=== PATIENT | male | born 1965 | race Caucasian/White ===

== ENCOUNTER 2016-04-23 20:11 | Emergency (ER) | payer OTHER, SELFPAY ==
[2016-04-23 20:35] VITALS: PULSE 70; O2SAT 96
[2016-04-23] MEDS ORDERED: DILAUDID 1 MG/ML INJECTION IM ONE (21:05)
[2016-04-23] MEDS ORDERED: Phenergan 25 MG INJ IM ONE (21:05)
--- NOTE | 2016-04-23 21:12 | ERPHSYRPT ---
- History of Present Illness Time Seen by Provider: 04/23/16 20:58 Source: patient Exam Limitations: no limitations Patient Subjective Stated Complaint: didnt go to work because of bad lower back pain x 4-5 days - pain radiates to the legs Triage Nursing Assessment: ambulatory to treatment area - slow, intentional gait - moves all extremities with rigidity. alert/oriented - unpleasant affect. skin flushed/dry - no rash/injury. resps shallow per pain - non- labored Physician History: FOR THE PAST 4 DAYS PT HAS HAD PROGRESSIVELY WORSENING LOW BACK PAIN RADIATING AT TIMES DOWN TO BOTH FEET; DENIES RECENT INJURY BUT STATES HE BENDS OVER AT WORK AND LIFTS OCCASIONALLY. PT DENIES CHEST PAIN, SHORTNESS OF AIR, FEVER, DYSURIA, ABDOMINAL PAIN. Allergies/Adverse Reactions: No Known Drug Allergies Allergy (Unverified 04/23/16 20:34) Home Medications: Carvedilol 12.5 mg [Coreg 12.5 mg] 25 mg PO DAILY 12/27/14 [History] Fluoxetine HCl 10 mg [Prozac 10 mg] 10 mg PO HS 12/27/14 [History] Hydrochlorothiazide 12.5 mg PO DAILY 12/27/14 [History] Hydrocodone/APAP 10/325 mg [[place] 10/325 MG Tablet] 1 tab PO TID 12/27/14 [History] Lisinopril [Zestril] 30 mg PO DAILY 12/27/14 [History] Diclofenac Sodium 50 mg [Voltaren 50 mg] 50 mg PO DAILY 04/23/16 [History] Hx Tetanus, Diphtheria Vaccination/Date Given: No Hx Influenza Vaccination/Date Given: No Hx Pneumococcal Vaccination/Date Given: No Immunizations Up to Date: Yes - Review of Systems Respiratory: No Dyspnea Cardiac: No Chest Pain Abdominal/Gastrointestinal: No Abdominal Pain Genitourinary Symptoms: No Dysuria Musculoskeletal: Back Pain (BILATERAL LOW BACK PAIN SOMETIMES WITH RADIATION TO FEET) All Other Systems: Reviewed and Negative - Past Medical History Pertinent Past Medical History: Yes Neurological History: No Pertinent History ENT History: No Pertinent History Cardiac History: Hypertension Respiratory History: No Pertinent History Musculoskeletal History: No Pertinent History GI Medical History: Gallbladder Disease Psycho-Social History: No Pertinent History Other Medical History: RESTLESS LEG - Past Surgical History Past Surgical History: Yes Neuro Surgical History: No Pertinent History Cardiac: No Pertinent History Respiratory: No Pertinent History Gastrointestinal: Cholecystectomy Genitourinary: No Pertinent History Male Surgical History: No Pertinent History Other Surgical History: lymph node removed 25 yrs ago - Social History Smoking Status: Current every day smoker How long have you smoked: 30 yrs Exposure to second hand smoke: No Drug Use: none Patient Lives Alone: No - Nursing Vital Signs Temperature: 98.1 F Temperature Source: Oral Pulse Rate: 70 Respiratory Rate: 16 Pain Intensity: 10 - Physical Exam General Appearance: alert Eye Exam: PERRL/EOMI, eyes nml inspection Ears, Nose, Throat Exam: TMs normal, pharynx normal, moist mucous membranes Neck Exam: normal inspection, non-tender Respiratory Exam: lungs clear Cardiovascular Exam: normal heart sounds Gastrointestinal Exam: soft, normal bowel sounds Back Exam: normal range of motion, other (MILD LUMBAR PARAVERTEBRAL TENDERNESS) , No vertebral tenderness Extremity Exam: normal inspection, normal range of motion, No pedal edema Peripheral Pulses: dorsalis-pedis (R): 3+, dorsalis-pedis (L): 3+ Neurologic Exam: alert, cooperative, sensation nml, No motor deficits Skin Exam: warm, dry SpO2 Interpretation: normal SpO2: 96 Oxygen Delivery: Room Air - Course Nursing assessment & vital signs reviewed: Yes - Departure Time of Disposition: 21:13 Departure Disposition: Home Clinical Impression: LOW BACK STRAIN Condition: Fair Critical Care Time: No Instructions: Low Back Pain Additional Instructions: FOLLOW UP WITH PRIVATE DOCTOR TOMORROW. DO NOT LIFT, BEND OR TWIST TORSO. Prescriptions: Naproxen [Naprosyn] 500 mg PO Q12H PRN PRN #20 tablet PRN Reason: Pain Cyclobenzaprine HCl [Flexeril] 10 mg PO TID #20 tablet
[2016-04-23] MEDS ORDERED: Phenergan 25 MG INJ ONE (21:14)
[2016-04-23] MEDS ORDERED: DILAUDID 1 MG/ML INJECTION ONE (21:14)
[2016-04-23 22:08] VITALS: BP 163/96
== END 2016-04-23 22:08 | disposition home or self-care (01) ==
LOC: ED 20:11
DX: S39.012A Strain of muscle, fascia and tendon of lower back, initial encounter (principal); M54.5 Low back pain; Z79.891 Long term (current) use of opiate analgesic
CPT/HCPCS: 96372; 99283; J1170; J2550

== ENCOUNTER 2016-12-24 05:39 | Emergency (ER) | payer SELFPAY ==
--- NOTE | 2016-12-24 06:10 | ERPHSYRPT ---
- History of Present Illness Source: patient, family () Exam Limitations: no limitations Patient Subjective Stated Complaint: pt states he has been vomiting blood for 2 weeks and having lt sided abd pain. Triage Nursing Assessment: pt alert and oreinted. answers questions approp. pt ambulatory with steady gait noted. respirations nonlaboroed with lungs cta. skin patel, wrm anddry abd tender to light palpation with hypo bowel sounds noted in all 4 quads. Hx Tetanus, Diphtheria Vaccination/Date Given: No Hx Influenza Vaccination/Date Given: No Hx Pneumococcal Vaccination/Date Given: No Immunizations Up to Date: No <MIGUELINA PARISI - Last Filed: 12/24/16 07:09> <MIGUELINA RAMON - Last Filed: 12/24/16 10:09> - History of Present Illness Time Seen by Provider: 12/24/16 05:55 Physician History: FOR THE PAST 3 WEEKS PT HAS HAD LEFT FLANK/ABDOMINAL/RIB PAIN; FOR THE PAST 2 WEEKS VOMITING BRIGHT RED BLOOD 1-3 TIMES EACH DAY; WITHIN THE PAST 1.5 WEEKS BRIGHT RED BLOOD IN THE STOOL X2. PT ALSO C/O A CHRONIC COUGH FOR YEARS WHICH WORSENED YESTERDAY AND DIAPHORESIS FOR THE PAST 2 YEARS. PT HAS ALSO LOST ABOUT 30# IN THE PAST 3 MONTHS. RECENT TRAUMA, ACCIDENT, FEVER, RASH ALL DENIED. ( MIGUELINA PARISI) Allergies/Adverse Reactions: No Known Drug Allergies Allergy (Verified 12/24/16 05:52) Home Medications: Carvedilol 12.5 mg [Coreg 12.5 mg] 25 mg PO DAILY 12/27/14 [History] Fluoxetine HCl 10 mg [Prozac 10 mg] 10 mg PO HS 12/27/14 [History] Hydrochlorothiazide 12.5 mg PO DAILY 12/27/14 [History] Hydrocodone/APAP 10/325 mg [[place] 10/325 MG Tablet] 1 tab PO TID 12/27/14 [History] Lisinopril [Zestril] 30 mg PO DAILY 12/27/14 [History] Diclofenac Sodium 50 mg [Voltaren 50 mg] 75 mg PO DAILY 04/23/16 [History] - Review of Systems Constitutional: Weight Loss, No Fever Respiratory: Cough Cardiac: Other (LEFT LOWER RIB PAIN) Abdominal/Gastrointestinal: Abdominal Pain, Hematemesis, Hematochezia Endocrine: Excessive Sweating All Other Systems: Reviewed and Negative <MIGUELINA PARISI - Last Filed: 12/24/16 07:09> - Past Medical History Pertinent Past Medical History: Yes Neurological History: No Pertinent History ENT History: No Pertinent History Cardiac History: Hypertension Respiratory History: No Pertinent History Musculoskeletal History: No Pertinent History GI Medical History: Gallbladder Disease Psycho-Social History: No Pertinent History Other Medical History: RESTLESS LEG - Past Surgical History Past Surgical History: Yes Neuro Surgical History: No Pertinent History Cardiac: No Pertinent History Respiratory: No Pertinent History Gastrointestinal: Cholecystectomy Genitourinary: No Pertinent History Male Surgical History: No Pertinent History Other Surgical History: lymph node removed 25 yrs ago - Social History Smoking Status: Current every day smoker How long have you smoked: 30 yrs Exposure to second hand smoke: Yes Drug Use: none Patient Lives Alone: No <MIGUELINA PARISI - Last Filed: 12/24/16 07:09> - Physical Exam General Appearance: alert Eye Exam: PERRL/EOMI Ears, Nose, Throat Exam: pharynx normal Neck Exam: normal inspection Respiratory Exam: lungs clear Cardiovascular Exam: normal heart sounds Gastrointestinal/Abdomen Exam: soft, tenderness (MODERATE LUQ ABDOMINAL TENDERNESS), other (B.S. MILDLY HYPERACTIVE AND NORMOTONIC) Rectal Exam: normal rectal tone, No blood Back Exam: normal range of motion Extremity Exam: normal inspection, No pedal edema Neurologic Exam: alert, cooperative Skin Exam: warm, dry SpO2 Interpretation: normal SpO2: 96 Oxygen Delivery: Room Air <MIGUELINA PARISI - Last Filed: 12/24/16 07:09> <MIGUELINA RAMON - Last Filed: 12/24/16 10:09> - Nursing Vital Signs Nursing Vital Signs: Initial Vital Signs Temperature 98.1 F 12/24/16 05:44 Pulse Rate 70 12/24/16 05:44 Respiratory Rate 18 12/24/16 05:44 Blood Pressure 124/61 12/24/16 05:44 O2 Sat by Pulse Oximetry 96 12/24/16 05:44 Pain Scale Pain Intensity 10 - Course Nursing assessment & vital signs reviewed: Yes <MIGUELINA PARISI - Last Filed: 12/24/16 07:09> - CT Exams Chest CT Interpretation: Negative (Per Dr Mora.) Abdomen/Pelvis CT Interpretation: Normal Appendix, Other (colonic diverticulosis without diverticulitis. No acute intra-abdominal/pelvic abnormalities per Dr Mora.) <MIGUELINA RAMON - Last Filed: 12/24/16 10:09> Ordered Tests: Active Orders 24 hr Category Date Time Status IV Insertion STAT Care 12/24/16 06:07 Active ABDOMEN AND PELVIS W CONTRAST [CT] Stat Exams 12/24/16 06:06 Completed CHEST WITH CONTRAST [CT] Stat Exams 12/24/16 06:06 Completed AMYLASE Stat Lab 12/24/16 06:07 Completed CBC W DIFF Stat Lab 12/24/16 06:07 Completed CMP Stat Lab 12/24/16 06:07 Completed LIPASE Stat Lab 12/24/16 06:07 Completed MAGNESIUM Stat Lab 12/24/16 06:07 Completed Occult Blood,Stool Other Stat Lab 12/24/16 06:50 Completed PROTIME WITH INR Stat Lab 12/24/16 06:00 Completed PTT Stat Lab 12/24/16 06:00 Completed UA W/ MICROSCOPIC Stat Lab 12/24/16 06:08 Completed Medication Summary Generic Name Dose Route Start Last Admin Trade Name Freq PRN Reason Stop Dose Admin Sodium Chloride 1,000 mls @ 350 mls/hr 12/24/16 06:15 12/24/16 06:13 Sodium Chloride 0.9% 1000 Ml IV 01/23/17 06:14 350 mls/hr .[id number] MATI Administration Discontinued Medications Generic Name Dose Route Start Last Admin Trade Name Freq PRN Reason Stop Dose Admin Morphine Sulfate 4 mg 12/24/16 07:56 12/24/16 08:00 Morphine Sulfate 4 Mg Inj IV 12/24/16 07:57 4 mg STAT ONE Administration Morphine Sulfate Confirm 12/24/16 07:58 Morphine Sulfate 4 Mg Inj Administered 12/24/16 07:59 Dose 4 mg .ROUTE .STK-MED ONE Ondansetron HCl 4 mg 12/24/16 07:56 12/24/16 08:00 Zofran 4 Mg/2 Ml Vial IV 12/24/16 07:57 4 mg STAT ONE Administration Ondansetron HCl Confirm 12/24/16 07:58 Zofran 4 Mg/2 Ml Vial Administered 09/25/17 07:59 Dose 4 mg .ROUTE .STK-MED ONE Lab/Rad Data: Laboratory Result Diagrams 12/24/16 06:07 12/24/16 06:07 Laboratory Results 12/24/16 12/24/16 12/24/16 Range/Units 06:50 06:08 06:07 WBC (4.0-10.5) K/mm3 RBC (4.1-5.6) M/mm3 Hgb (12.5-18.0) gm/dl Hct (42-50) % MCV (78-100) fl MCH (26-32) pg MCHC (32-36) g/dl RDW (11.5-14.0) % Plt Count (150-450) K/mm3 MPV (6-9.5) fl Gran % (36.0-66.0) % Lymphocytes % (24.0-44.0) % Monocytes % (0.0-12.0) % Eosinophils % (0.00-5.0) % Basophils % (0.0-0.4) % Basophils # (0-0.4) INR (0.8-3.0) APTT (24.1-36.1) SECONDS Sodium 141 (136-145) mEq/L Potassium 4.8 (3.5-5.1) mEq/L Chloride 106 (98-107) mEq/L Carbon Dioxide 24.8 (21-32) mEq/L Anion Gap 14.7 (5-15) MEQ/L BUN 33 H (9-20) mg/dL Creatinine 1.48 H (0.55-1.30) mg/dl Estimated GFR 54 ML/MIN Glucose 119 H (70-110) MG/DL Calcium 9.1 (8.5-10.1) mg/dL Magnesium 2.2 (1.8-2.4) mg/dL Total Bilirubin 0.30 (0.2-1.0) mg/dL AST 20 (15-37) U/L ALT 26 (12-78) U/L Alkaline Phosphatase 94 (46-116) U/L Serum Total Protein 7.4 (6.4-8.2) gm/dL Albumin 3.8 (3.4-5.0) g/dL Amylase 89 (25-115) U/L Lipase 282 (73-393) U/L Ur Collection Type CLEAN CATCH Urine Color YELLOW (YELLOW) Urine Appearance CLEAR (CLEAR) Urine pH 5.0 (5-6) Ur Specific [place] 1.015 (1.005-1.025) Urine Protein NEGATIVE (Negative) Urine Ketones NEGATIVE (NEGATIVE) Urine Blood 250 (0-5) Navjot/ul Urine Nitrite NEGATIVE (NEGATIVE) Urine Bilirubin NEGATIVE (NEGATIVE) Urine Urobilinogen NORMAL (0-1) mg/dL Ur Leukocyte Esterase NEGATIVE (NEGATIVE) Urine Microscopic RBC 2-5 (0-2) /HPF Ur Epithelial Cells RARE (FEW) /HPF Urine Bacteria RARE (NEGATIVE) /HPF Urine Mucus SLIGHT (NEGATIVE) /HPF Urine Glucose NEGATIVE (NEGATIVE) mg/dL Stool Occult Blood NEGATIVE (Negative) Specimen Received 12/24 0712/24/16 12/24/16 Range/Units 06:07 06:00 WBC 11.7 H (4.0-10.5) K/mm3 RBC 4.46 (4.1-5.6) M/mm3 Hgb 14.1 (12.5-18.0) gm/dl Hct 42.6 (42-50) % MCV 95.5 (78-100) fl MCH 31.6 (26-32) pg MCHC 33.1 (32-36) g/dl RDW 13.3 (11.5-14.0) % Plt Count 218 (150-450) K/mm3 MPV 11.1 H (6-9.5) fl Gran % 58.6 (36.0-66.0) % Lymphocytes % 31.9 (24.0-44.0) % Monocytes % 6.7 (0.0-12.0) % Eosinophils % 2.5 (0.00-5.0) % Basophils % 0.3 (0.0-0.4) % Basophils # 0.04 (0-0.4) INR 0.97 (0.8-3.0) APTT 30.8 (24.1-36.1) SECONDS Sodium (136-145) mEq/L Potassium (3.5-5.1) mEq/L Chloride (98-107) mEq/L Carbon Dioxide (21-32) mEq/L Anion Gap (5-15) MEQ/L BUN (9-20) mg/dL Creatinine (0.55-1.30) mg/dl Estimated GFR ML/MIN Glucose (70-110) MG/DL Calcium (8.5-10.1) mg/dL Magnesium (1.8-2.4) mg/dL Total Bilirubin (0.2-1.0) mg/dL AST (15-37) U/L ALT (12-78) U/L Alkaline Phosphatase (46-116) U/L Serum Total Protein (6.4-8.2) gm/dL Albumin (3.4-5.0) g/dL Amylase (25-115) U/L Lipase (73-393) U/L Ur Collection Type Urine Color (YELLOW) Urine Appearance (CLEAR) Urine pH (5-6) Ur Specific [place] (1.005-1.025) Urine Protein (Negative) Urine Ketones (NEGATIVE) Urine Blood (0-5) Navjot/ul Urine Nitrite (NEGATIVE) Urine Bilirubin (NEGATIVE) Urine Urobilinogen (0-1) mg/dL Ur Leukocyte Esterase (NEGATIVE) Urine Microscopic RBC (0-2) /HPF Ur Epithelial Cells (FEW) /HPF Urine Bacteria (NEGATIVE) /HPF Urine Mucus (NEGATIVE) /HPF Urine Glucose (NEGATIVE) mg/dL Stool Occult Blood (Negative) Specimen Received <MIGUELINA PARISI - Last Filed: 12/24/16 07:09> - Progress Progress: improved Counseled pt/family regarding: lab results, diagnosis, need for follow-up, rad results <MIGUELINA RAMON - Last Filed: 12/24/16 10:09> - Progress Progress Note: 12/24/16 09:39 Pt care discussed and pt care accepted from Dr Parisi at 07:00. (MIGUELINA RAMON) <MIGUELINA PARISI - Last Filed: 12/24/16 07:09> - Departure Time of Disposition: 09:52 Departure Disposition: Home Critical Care Time: No <MIGUELINA RAMON - Last Filed: 12/24/16 10:09> - Departure Clinical Impression: Chronic abdominal pain, Vomiting Condition: Stable Referrals: PIYUSH PLAZA MD [Primary Care Provider] - Additional Instructions: You have chronic abdominal pain and vomiting. You were given morphine 4 mg, Zofran 4 mg, and fluids by IV in the ER. Take Zofran 4 mg ODT every 6 hours as needed. Follow-up with your local primary care physician within one week. Prescriptions: Ondansetron ODT 4 MG [Zofran Odt 4 mg] 1 tab PO Q6H PRN PRN #10 tab.rapdis PRN Reason: Nausea/Vomiting
[2016-12-24] MEDS ORDERED: Sodium Chloride 0.9% 1000 ML 1,000 ML ONE (06:12)
[2016-12-24] MEDS ORDERED: Sodium Chloride 0.9% 1000 ML 1,000 ML IV SCH (06:15)
[2016-12-24 06:18] LABS: BASOPHIL % 0.3 % (0.0-0.4); Eosinophil % 2.5 % (0.00-5.0); Granulocytes % 58.6 % (36.0-66.0); Lymphocytes % 31.9 % (24.0-44.0); Mean Cell Volume 95.5 fl (78-100); Mean Corpuscular Hemoglobin 31.6 pg (26-32); Mean Platelet Volume 11.1 fl (6-9.5); Monocytes % 6.7 % (0.0-12.0); Platelet Count 218 K/mm3 (150-450); Red Blood Count 4.46 M/mm3 (4.1-5.6); Red Cell Distribution Width 13.3 % (11.5-14.0); White Blood Count 11.7 K/mm3 (4.0-10.5)
[2016-12-24 06:38] LABS: ALBUMIN 3.8 g/dL (3.4-5.0); ANION GAP 14.7 MEQ/L (5-15); BILIRUBIN,TOTAL 0.3 mg/dL (0.2-1.0); Carbon Dioxide 24.8 mEq/L (21-32); MAGNESIUM 2.2 mg/dL (1.8-2.4); Potassium 4.8 mEq/L (3.5-5.1); Total Protein 7.4 gm/dL (6.4-8.2)
[2016-12-24 06:38] LABS: INR 0.97 (0.8-3.0); PROTIME 10.8 SECONDS (8.83-12.87)
[2016-12-24 06:41] LABS: PTT 30.8 SECONDS (24.1-36.1)
[2016-12-24 07:04] LABS: Bilirubin NEGATIVE (NEGATIVE); Blood 250 Ery/ul (0-5); COMPLETE URINE MICROSCOPIC? YES; Collection Type CLEAN CATCH; Glucose NEGATIVE (NEGATIVE); Leukocyte Esterase NEGATIVE (NEGATIVE)
[2016-12-24 07:07] LABS: Bacteria RARE /HPF (NEGATIVE); Epithelial Cells RARE /HPF (FEW); Mucus SLIGHT /HPF (NEGATIVE)
[2016-12-24 07:08] LABS: ADD URINE CULTURE? NO (NO)
[2016-12-24] MEDS ORDERED: MORPHINE SULFATE 4 MG INJ IV ONE (07:56)
[2016-12-24] MEDS ORDERED: Zofran 4 MG/2 ML VIAL IV ONE (07:56)
[2016-12-24] MEDS ORDERED: MORPHINE SULFATE 4 MG INJ ONE (07:58)
[2016-12-24] MEDS ORDERED: Zofran 4 MG/2 ML VIAL ONE (07:58)
[2016-12-24 08:05] VITALS: O2SAT 97
--- NOTE | 2016-12-24 08:40 | XRAY ---
Indication: Left flank pain. Vomiting blood. Multiple contiguous axial images obtained through the chest using 80 cc Isovue 370 contrast. Comparison: None Lungs are fully inflated and clear. Incidental tiny right lower lobe calcified granuloma. Heart is not enlarged. Aorta normal in course and caliber. No pathologic mediastinal/hilar lymphadenopathy. Bony thorax intact with minimal degenerative changes throughout the spine. CT abdomen reported separately. Impression: Negative CT chest with contrast exam. CT DI 23.69
--- NOTE | 2016-12-24 08:41 | XRAY ---
Indication: Left flank pain. Vomiting. Multiple contiguous axial images obtained through the abdomen and pelvis using 80 cc Isovue 370 contrast only. Comparison: CT renal stone study December 13, 2010. CT chest reported separately. Noncontrasted stomach and bowel loops appear nonobstructed. Normal appendix. Minimal descending/sigmoid colonic diverticulosis without diverticulitis. No free fluid/air. Diffuse fatty liver and previous cholecystectomy. Remaining liver, pancreas, spleen, adrenal glands, kidneys, ureters, and bladder appear unremarkable. There remains mild aortoiliac calcifications. No AAA or pathologic retroperitoneal lymphadenopathy. Osseous structures intact again with mild degenerative changes throughout the spine. Impression: 1. Colonic diverticulosis without diverticulitis. 2. Fatty liver. 3. No acute intra-abdominal/pelvic abnormalities. CT DI 23.69
[2016-12-24 10:18] VITALS: BP 105/67; PULSE 61
== END 2016-12-24 10:23 | disposition home or self-care (01) ==
LOC: ED 05:39
DX: R10.9 Unspecified abdominal pain (principal); G89.29 Other chronic pain; R11.10 Vomiting, unspecified; Z79.891 Long term (current) use of opiate analgesic; Z79.899 Other long term (current) drug therapy; K92.1 Melena; K92.0 Hematemesis
CPT/HCPCS: 36000; 36415; 71260; 74177; 80053; 81000; 82150; 82272; 83690; 83735; 85025; 85610; 85730; 96360; 96374; 96375; 99284; J2270; J2405

== ENCOUNTER 2018-04-01 18:12 | Observation (INO) | payer MEDICAID ==
[2018-04-01] MEDS ORDERED: MORPHINE SULFATE 2 MG INJ IV ONE (18:18)
[2018-04-01] MEDS ORDERED: BABY ASPIRIN 81 MG CHEW PO ONE (18:18)
[2018-04-01] MEDS ORDERED: Nitrostat 0.4 MG (ED) SL ONE (18:18)
[2018-04-01] MEDS ORDERED: LOPRESSOR 5 MG/5 ML INJECTION IV ONE ×2 (18:20→18:28)
[2018-04-01 18:26] LABS: BASOPHIL % 0.4 % (0.0-0.4); Basophil (Absolute #) 0.06 (0-0.4); Eosinophil % 1.7 % (0.00-5.0); Eosinophil (Absolute #) 0.24 (0-0.5); Granulocyte Absolute (ANC) 8.81 (1.4-6.9); Granulocytes % 60.6 % (36.0-66.0); Hematocrit 47.1 % (42-50); Hemoglobin 15.8 gm/dl (12.5-18.0); Lymphocyte (Absolute #) 4.22 (1.0-4.6); Mean Cell Volume 93.1 fl (78-100); Mean Corpuscular Hemoglobin 31.2 pg (26-32); Mean Corpuscular Hgb Concent. 33.5 g/dl (32-36); Mean Platelet Volume 10.8 fl (6-9.5); Monocytes % 8.3 % (0.0-12.0); Platelet Count 248 K/mm3 (150-450); Red Blood Count 5.06 M/mm3 (4.1-5.6); Red Cell Distribution Width 13.8 % (11.5-14.0); White Blood Count 14.5 K/mm3 (4.0-10.5)
[2018-04-01] MEDS ORDERED: MORPHINE SULFATE 2 MG INJ ONE (18:28)
[2018-04-01] MEDS: Sodium Chloride 0.9% 1000 ML 1,000 ML IV SCH (18:31)
[2018-04-01 18:40] LABS: PTT 26.5 SECONDS (24.1-36.1)
[2018-04-01 18:51] LABS: ALBUMIN 4.7 g/dL (3.5-5.0); ALKALINE PHOSPHATASE 93 U/L (38-126); ANION GAP 15.1 MEQ/L (5-15); BLOOD UREA NITROGEN 22 mg/dL (9-20); CHLORIDE 103 mmol/L (98-107); CK-Creatinine Phosphokinase 42 U/L (55-170); Carbon Dioxide 26 mmol/L (22-30); Creatinine 1 1.27 mg/dL (0.66-1.25); Glucose 159 mg/dL (74-106); NT PRO BNP 33.6 pg/mL (0-900); Potassium 4.5 mmol/L (3.5-5.1); SGOT/AST 22 U/L (17-59); SGPT/ALT 23 U/L (0-50); SODIUM 140 mmol/L (137-145); Total Protein 8.3 g/dL (6.3-8.2)
--- NOTE | 2018-04-01 20:14 | ERPHSYRPT ---
- History of Present Illness Historian: patient Exam Limitations: no limitations Patient Subjective Stated Complaint: CP starting approx 1 hour [employer] was sitting in the reclinwer when it started. pain increased with every breath. Triage Nursing Assessment: arrived in distress with CP 10/10 with pain going to left chest and into left arm. goes into back.. sierra with breathing. very anxious. Physician History: Pt is a 52 y/o male with a h/o CT in the past. He presented today to the ER, with complains of severe 10/10 chest pain that started while the pt was at rest. The pt states, the pain is mid sternal, radiates to his back and L arm. The pain was reproducible. Timing/Duration: today Activities at Onset: rest Quality: aching, pressure, tightness Location: substernal Chest Pain Radiation: arm, back Severity of Pain-Max: severe Severity of Pain-Current: none Modifying Factors: Improves With: nitroglycerin, rest, aspirin Associated Symptoms: denies symptoms Prior Chest Pain/Cardiac Workup: heart attack Nitro Today/Relief: 0.4 mg x 2, provided by ED Aspirin Treatment Today: 81 mg x 2, provided by ED Allergies/Adverse Reactions: No Known Drug Allergies Allergy (Verified 04/01/18 18:22) Home Medications: Carvedilol 12.5 mg [Coreg 12.5 mg] 25 mg PO DAILY 12/27/14 [History] Fluoxetine HCl 10 mg [Prozac 10 mg] 10 mg PO HS 12/27/14 [History] Hydrochlorothiazide 12.5 mg PO DAILY 12/27/14 [History] Hydrocodone/APAP 10/325 mg [[place] 10/325 MG Tablet] 1 tab PO TID 12/27/14 [History] Lisinopril [Zestril] 30 mg PO DAILY 12/27/14 [History] Hx Tetanus, Diphtheria Vaccination/Date Given: No Hx Influenza Vaccination/Date Given: No Hx Pneumococcal Vaccination/Date Given: No - Review of Systems Constitutional: No Fever, No Chills Eyes: No Symptoms Ears, Nose, & Throat: No Symptoms Respiratory: No Cough, No Dyspnea Cardiac: Chest Pain Abdominal/Gastrointestinal: No Abdominal Pain, No Nausea, No Vomiting, No Diarrhea Genitourinary Symptoms: No Dysuria Musculoskeletal: No Back Pain, No Neck Pain Skin: No Rash Neurological: No Dizziness, No Focal Weakness, No Sensory Changes Psychological: No Symptoms Endocrine: No Symptoms All Other Systems: Reviewed and Negative - Past Medical History Pertinent Past Medical History: Yes Neurological History: No Pertinent History ENT History: No Pertinent History Cardiac History: Hypertension Respiratory History: No Pertinent History Musculoskeletal History: No Pertinent History GI Medical History: Gallbladder Disease Psycho-Social History: No Pertinent History Other Medical History: RESTLESS LEG - Past Surgical History Past Surgical History: Yes Neuro Surgical History: No Pertinent History Cardiac: No Pertinent History Respiratory: No Pertinent History Gastrointestinal: Cholecystectomy Genitourinary: No Pertinent History Male Surgical History: No Pertinent History Other Surgical History: lymph node removed 25 yrs ago - Social History Smoking Status: Heavy tobacco smoker How long have you smoked: 30 yrs Exposure to second hand smoke: No Drug Use: none Patient Lives Alone: No - Nursing Vital Signs Nursing Vital Signs: Initial Vital Signs Pulse Rate 101 H 04/01/18 18:15 Respiratory Rate 22 04/01/18 18:15 Blood Pressure 138/101 04/01/18 18:15 O2 Sat by Pulse Oximetry 99 04/01/18 18:15 Pain Scale Pain Intensity 3 - Physical Exam General Appearance: severe distress Eye Exam: PERRL/EOMI, eyes nml inspection Ears, Nose, Throat Exam: normal ENT inspection, moist mucous membranes Neck Exam: normal inspection, non-tender, supple, full range of motion Respiratory Exam: normal breath sounds, lungs clear, No respiratory distress Cardiovascular Exam: regular rate/rhythm, normal heart sounds, normal peripheral pulses, other (chest pain is reproducible) Gastrointestinal/Abdomen Exam: soft, No tenderness, No mass Back Exam: normal inspection, No CVA tenderness, No vertebral tenderness Extremity Exam: normal inspection, normal range of motion Neurologic Exam: alert, oriented x 3, cooperative, normal mood/affect, sensation nml, No motor deficits Skin Exam: normal color, warm, dry SpO2: 97 Oxygen Delivery: Room Air - Course Nursing assessment & vital signs reviewed: Yes EKG Interpreted by Me: Sinus Rhythm Rhythm Strip: Normal Sinus Rhythm - Radiology Exams Chest X-ray Interpretation: Interpreted by me (Normal chest with no congestion, infiltrates or effusions.) Ordered Tests: Active Orders 24 hr Category Date Time Status Casing In Line Setter STAT Care 04/01/18 18:19 Active EKG-ER Only STAT Care 04/01/18 18:18 Active IV Insertion STAT Care 04/01/18 18:18 Active Oxygen-ED Only NASAL CANNULA 2 lpm Care 04/01/18 18:18 Active CHEST 2 VIEWS (PA AND LAT) Stat Exams 04/01/18 19:39 Taken CBC W DIFF Stat Lab 04/01/18 18:20 Completed CK-Creatinine Phosphokinase Stat Lab 04/01/18 18:20 Completed CMP Stat Lab 04/01/18 18:20 Completed NT PRO BNP Stat Lab 04/01/18 18:20 Completed PROTIME WITH INR Stat Lab 04/01/18 18:20 Completed PTT Stat Lab 04/01/18 18:20 Completed TROPONIN Q3H Lab 04/01/18 18:20 Completed TROPONIN Q3H Lab 04/01/18 21:30 Ordered TROPONIN Q3H Lab 04/02/18 00:30 Ordered TROPONIN Q3H Lab 04/02/18 03:30 Ordered TROPONIN Q3H Lab 04/02/18 06:30 Ordered Medication Summary Generic Name Dose Route Start Last Admin Trade Name Freq PRN Reason Stop Dose Admin Sodium Chloride 1,000 mls @ 100 mls/hr 04/01/18 18:30 04/01/18 18:31 Sodium Chloride 0.9% 1000 Ml IV 05/01/18 18:29 100 mls/hr .Q10H MATI Administration Discontinued Medications Generic Name Dose Route Start Last Admin Trade Name Freq PRN Reason Stop Dose Admin Aspirin 162 mg 04/01/18 18:18 04/01/18 18:25 Baby Aspirin 81 Mg Chew PO 04/01/18 18:19 162 mg STAT ONE Administration Metoprolol Tartrate 5 mg 04/01/18 18:20 04/01/18 18:35 Lopressor 5 Mg/5 Ml Injection IV 04/01/18 18:21 5 mg STAT ONE Administration Metoprolol Tartrate Confirm 04/01/18 18:28 Lopressor 5 Mg/5 Ml Injection Administered 04/01/18 18:29 Dose 5 mg IV .STK-MED ONE Morphine Sulfate 2 mg 04/01/18 18:18 04/01/18 18:31 Morphine Sulfate 2 Mg Inj IV 04/01/18 18:19 2 mg STAT ONE Administration Morphine Sulfate Confirm 04/01/18 18:28 Morphine Sulfate 2 Mg Inj Administered 04/01/18 18:29 Dose 2 mg .ROUTE .STK-MED ONE Nitroglycerin 0.4 mg 04/01/18 18:18 04/01/18 18:22 Nitrostat 0.4 Mg (Ed) SL 04/01/18 18:19 0.4 mg STAT ONE Administration Lab/Rad Data: Laboratory Result Diagrams 04/01/18 18:20 04/01/18 18:20 Laboratory Results 04/01/18 04/01/18 04/01/18 Range/Units 18:20 18:20 18:20 WBC (4.0-10.5) K/mm3 RBC (4.1-5.6) M/mm3 Hgb (12.5-18.0) gm/dl Hct (42-50) % MCV (78-100) fl MCH (26-32) pg MCHC (32-36) g/dl RDW (11.5-14.0) % Plt Count (150-450) K/mm3 MPV (6-9.5) fl Gran % (36.0-66.0) % Eos # (Auto) (0-0.5) Absolute Lymphs (auto) (1.0-4.6) Absolute Monos (auto) (0.0-1.3) Lymphocytes % (24.0-44.0) % Monocytes % (0.0-12.0) % Eosinophils % (0.00-5.0) % Basophils % (0.0-0.4) % Absolute Granulocytes (1.4-6.9) Basophils # (0-0.4) PT 11.6 (8.83-12.87) SECONDS INR 1.00 (0.8-3.0) APTT 26.5 (24.1-36.1) SECONDS Sodium 140 (137-145) mmol/L Potassium 4.5 (3.5-5.1) mmol/L Chloride 103 (98-107) mmol/L Carbon Dioxide 26 (22-30) mmol/L Anion Gap 15.1 H (5-15) MEQ/L BUN 22 H (9-20) mg/dL Creatinine 1.27 H (0.66-1.25) mg/dL Estimated GFR > 60.0 ML/MIN Glucose 159 H (74-106) mg/dL Calcium 10.0 (8.4-10.2) mg/dL Total Bilirubin 0.40 (0.2-1.3) mg/dL AST 22 (17-59) U/L ALT 23 (0-50) U/L Alkaline Phosphatase 93 (38-126) U/L Creatine Kinase 42 L (55-170) U/L Troponin I < 0.012 (0.000-0.034) ng/mL NT-Pro-B Natriuret Pep 33.6 (0-900) pg/mL Serum Total Protein 8.3 H (6.3-8.2) g/dL Albumin 4.7 (3.5-5.0) g/dL 04/01/18 Range/Units 18:20 WBC 14.5 H (4.0-10.5) K/mm3 RBC 5.06 (4.1-5.6) M/mm3 Hgb 15.8 (12.5-18.0) gm/dl Hct 47.1 (42-50) % MCV 93.1 (78-100) fl MCH 31.2 (26-32) pg MCHC 33.5 (32-36) g/dl RDW 13.8 (11.5-14.0) % Plt Count 248 (150-450) K/mm3 MPV 10.8 H (6-9.5) fl Gran % 60.6 (36.0-66.0) % Eos # (Auto) 0.24 (0-0.5) Absolute Lymphs (auto) 4.22 (1.0-4.6) Absolute Monos (auto) 1.20 (0.0-1.3) Lymphocytes % 29.0 (24.0-44.0) % Monocytes % 8.3 (0.0-12.0) % Eosinophils % 1.7 (0.00-5.0) % Basophils % 0.4 (0.0-0.4) % Absolute Granulocytes 8.81 H (1.4-6.9) Basophils # 0.06 (0-0.4) PT (8.83-12.87) SECONDS INR (0.8-3.0) APTT (24.1-36.1) SECONDS Sodium (137-145) mmol/L Potassium (3.5-5.1) mmol/L Chloride (98-107) mmol/L Carbon Dioxide (22-30) mmol/L Anion Gap (5-15) MEQ/L BUN (9-20) mg/dL Creatinine (0.66-1.25) mg/dL Estimated GFR ML/MIN Glucose (74-106) mg/dL Calcium (8.4-10.2) mg/dL Total Bilirubin (0.2-1.3) mg/dL AST (17-59) U/L ALT (0-50) U/L Alkaline Phosphatase (38-126) U/L Creatine Kinase (55-170) U/L Troponin I (0.000-0.034) ng/mL NT-Pro-B Natriuret Pep (0-900) pg/mL Serum Total Protein (6.3-8.2) g/dL Albumin (3.5-5.0) g/dL - Progress Progress: improved Air Movement: fair Progress Note: 04/01/18 20:19 Pt is a 52 y/o male with chest pain that is much improved post Nitro, Metoprolol , and ASA. He has a h/o CAD, and will be kept as obs for chest pain r/o. Blood Culture(s) Obtained: No Antibiotics given: No Will see patient in: hospital (observation) - Departure Time of Disposition: 20:20 Departure Disposition: Observation Clinical Impression: Chest pain, Chest pain, rule out acute myocardial infarction Condition: Stable Critical Care Time: No Referrals: PIYUSH PLAZA MD [Primary Care Provider] -
[2018-04-01] MEDS ORDERED: MILK OF MAGNESIA 30 ML PO PRN (20:22)
[2018-04-01] MEDS ORDERED: Zofran 4 MG/2 ML VIAL IV PRN (20:22)
[2018-04-01] MEDS ORDERED: TYLENOL 325 MG PO PRN (20:22)
[2018-04-01] MEDS ORDERED: MAALOX ES 30 ML UNIT DOSE PO PRN (20:22)
[2018-04-01] MEDS ORDERED: Senokot-S Tablet PO PRN (20:22)
[2018-04-01] MEDS: Lopressor 25MG Tab PO SCH (21:59)
[2018-04-01] MEDS ORDERED: Zestril 10 MG PO SCH (22:00)
[2018-04-01] MEDS ORDERED: hydroDIURIL 25 MG PO SCH (22:00)
[2018-04-01] MEDS ORDERED: PROZAC 10 MG PO SCH (22:00)
[2018-04-01] MEDS ORDERED: COREG 12.5 MG ONE (22:20)
[2018-04-02] MEDS: Norco 10/325 MG Tablet PO PRN ×2 (00:35→08:21)
[2018-04-02] MEDS ORDERED: COREG 12.5 MG ONE (01:55)
[2018-04-02] MEDS ORDERED: Nitrostat 0.4 MG Tablet SL PRN (02:19)
[2018-04-02 05:00] LABS: Risk Ratio 7.5
[2018-04-02] MEDS: Sodium Chloride 0.9% 1000 ML 1,000 ML IV SCH (05:08)
--- NOTE | 2018-04-02 08:45 | XRAY ---
Indication: Chest pain. Comparison: None PA/lateral chest remains clear. Heart and mediastinal structures within normal limits. Bony thorax intact. No new/acute findings. Impression: Stable nonacute chest.
[2018-04-02] MEDS: Lopressor 25MG Tab PO SCH (09:44)
[2018-04-02] MEDS ORDERED: Zithromax 250 MG TABLET PO SCH (10:00)
[2018-04-02] MEDS ORDERED: Ecotrin 325 MG PO SCH (10:00)
[2018-04-02 12:53] VITALS: BP 141/84; PULSE 66; O2SAT 96
--- NOTE | 2018-04-02 13:06 | PCM.SSS ---
History of Present Illness - Chief Complaint Chief Complaint: c/o chest pain for 1 day History of Present Illness: is a 52 year old male came to ER with c/o chest pain for 1 day duration - Review of Systems Constitutional: No Fever, No Chills Eyes: No Symptoms Ears, Nose, & Throat: No Symptoms Respiratory: No Cough, No Short Of Breath Cardiac: Chest Pain, No Edema, No Syncope Abdominal/Gastrointestinal: No Abdominal Pain, No Nausea, No Vomiting, No Diarrhea Genitourinary Symptoms: No Dysuria Musculoskeletal: No Back Pain, No Neck Pain Skin: No Rash Neurological: No Dizziness, No Focal Weakness, No Sensory Changes Psychological: No Symptoms Endocrine: No Symptoms Hematologic/Lymphatic: No Symptoms Immunological/Allergic: No Symptoms Medications & Allergies Home Medications: Home Medication List Carvedilol 12.5 mg [Coreg 12.5 mg] 25 mg PO HS 12/27/14 [History Confirmed 04/01/18] Fluoxetine HCl 10 mg [Prozac 10 mg] 10 mg PO HS 12/27/14 [History Confirmed 04/01/18] Hydrochlorothiazide 12.5 mg PO HS 12/27/14 [History Confirmed 04/01/18] Hydrocodone/APAP 10/325 mg [Macon 10/325 MG Tablet] 1 tab PO Q6H PRN 12/27 [History Confirmed 04/01/18] Lisinopril [Zestril] 30 mg PO HS 12/27/14 [History Confirmed 04/01/18] Azithromycin [Zithromax Tri-Nick] 500 mg PO UD #3 tablet 04/02/18 [Rx] Pravastatin Sodium [Pravachol] 20 mg PO HS #30 tablet 04/02/18 [Rx] Allergies/Adverse Reactions: Allergies Allergy/AdvReac Type Severity Reaction Status Date / Time No Known Drug Allergies Allergy Verified 04/01/18 18:22 - Past Medical History Past Medical History: Yes Neurological History: No Pertinent History ENT History: No Pertinent History Cardiac History: Hypertension, Myocardial Infarction (MS) Respiratory History: No Pertinent History Endocrine Medical History: No Pertinent History Musculoskelatal History: No Pertinent History GI Medical History: Gallbladder Disease History: No Pertinent History Pyscho-Social History: No Pertinent History Male Reproductive Disorders: No Pertinent History Comment: RESTLESS LEG - Past Surgical History Past Surgical History: Yes Neuro Surgical History: No Pertinent History Cardiac History: No Pertinent History Respiratory Surgery: No Pertinent History GI Surgical History: Cholecystectomy Genitourinary Surgical Hx: No Pertinent History Male Surgical History: No Pertinent History Other Surgical History: lymph node removed 25 yrs ago - Social History Smoking Status: Heavy tobacco smoker How long have you smoked: 30 yrs Exposure to second hand smoke: Yes Alcohol: None Drug Use: none - Physical Exam Vital Signs: Vital Signs - 24 hr Temp Pulse Pulse Resp BP Pulse Ox 04/02/18 12:00 98.6 F 66 18 141/84 96 04/02/18 07:23 98.0 F 67 18 131/76 93 L 04/02/18 04:00 98.3 F 69 18 121/63 94 L 04/02/18 00:02 97.5 F 70 18 136/68 95 04/01/18 23:53 97 04/01/18 21:26 97.8 F 69 18 125/64 97 04/01/18 20:21 97 04/01/18 19:05 72 18 150/98 97 04/01/18 18:42 98.4 F 102 H 102 H 24 171/103 99 04/01/18 18:41 81 18 131/88 98 04/01/18 18:37 86 20 159/98 100 04/01/18 18:20 98 H 20 143/92 98 04/01/18 18:15 101 H 22 138/101 99 Oxygen-Last 24 hours O2 Percentage 2 Liters = 28% O2 Percentage 2 Liters = 28% O2 Percentage 2 Liters = 28% O2 Percentage 2 Liters = 28% General Appearance: no apparent distress, alert Neurologic Exam: alert, oriented x 3, cooperative, normal mood/affect, nml cerebellar function, nml station & gait, sensation nml, No motor deficits Eye Exam: PERRL/EOMI, eyes nml inspection Ears, Nose, Throat Exam: normal ENT inspection, TMs normal, pharynx normal, moist mucous membranes Neck Exam: normal inspection, non-tender, supple, full range of motion Respiratory Exam: normal breath sounds, lungs clear, No respiratory distress Cardiovascular Exam: regular rate/rhythm, normal heart sounds, normal peripheral pulses Gastrointestinal/Abdomen Exam: soft, normal bowel sounds, No tenderness, No mass Back Exam: normal inspection, normal range of motion, No CVA tenderness, No vertebral tenderness Extremity Exam: normal inspection, normal range of motion, pelvis stable Skin Exam: normal color, warm, dry, No rash Lymphatic Exam: No adenopathy Results - Labs Lab/Micro Results: Lab Results-Last 24 Hours 04/01/18 04/01/18 04/01/18 Range/Units 18:20 18:20 18:20 WBC 14.5 H (4.0-10.5) K/mm3 RBC 5.06 (4.1-5.6) M/mm3 Hgb 15.8 (12.5-18.0) gm/dl Hct 47.1 (42-50) % MCV 93.1 (78-100) fl MCH 31.2 (26-32) pg MCHC 33.5 (32-36) g/dl RDW 13.8 (11.5-14.0) % Plt Count 248 (150-450) K/mm3 MPV 10.8 H (6-9.5) fl Gran % 60.6 (36.0-66.0) % Eos # (Auto) 0.24 (0-0.5) Absolute Lymphs (auto) 4.22 (1.0-4.6) Absolute Monos (auto) 1.20 (0.0-1.3) Lymphocytes % 29.0 (24.0-44.0) % Monocytes % 8.3 (0.0-12.0) % Eosinophils % 1.7 (0.00-5.0) % Basophils % 0.4 (0.0-0.4) % Absolute Granulocytes 8.81 H (1.4-6.9) Basophils # 0.06 (0-0.4) PT 11.6 (8.83-12.87) SECONDS INR 1.00 (0.8-3.0) APTT 26.5 (24.1-36.1) SECONDS Sodium 140 (137-145) mmol/L Potassium 4.5 (3.5-5.1) mmol/L Chloride 103 (98-107) mmol/L Carbon Dioxide 26 (22-30) mmol/L Anion Gap 15.1 H (5-15) MEQ/L BUN 22 H (9-20) mg/dL Creatinine 1.27 H (0.66-1.25) mg/dL Estimated GFR > 60.0 ML/MIN Glucose 159 H (74-106) mg/dL Calcium 10.0 (8.4-10.2) mg/dL Total Bilirubin 0.40 (0.2-1.3) mg/dL AST 22 (17-59) U/L ALT 23 (0-50) U/L Alkaline Phosphatase 93 (38-126) U/L Creatine Kinase 42 L (55-170) U/L Troponin I (0.000-0.034) ng/mL NT-Pro-B Natriuret Pep 33.6 (0-900) pg/mL Serum Total Protein 8.3 H (6.3-8.2) g/dL Albumin 4.7 (3.5-5.0) g/dL Triglycerides (30-150) mg/dL Cholesterol (50-200) mg/dL LDL Cholesterol (30-100) mg/dL HDL Cholesterol (40-60) mg/dL Heart Disease Risk Ratio 04/01/18 04/01/18 04/02/18 Range/Units 18:20 21:45 00:35 WBC (4.0-10.5) K/mm3 RBC (4.1-5.6) M/mm3 Hgb (12.5-18.0) gm/dl Hct (42-50) % MCV (78-100) fl MCH (26-32) pg MCHC (32-36) g/dl RDW (11.5-14.0) % Plt Count (150-450) K/mm3 MPV (6-9.5) fl Gran % (36.0-66.0) % Eos # (Auto) (0-0.5) Absolute Lymphs (auto) (1.0-4.6) Absolute Monos (auto) (0.0-1.3) Lymphocytes % (24.0-44.0) % Monocytes % (0.0-12.0) % Eosinophils % (0.00-5.0) % Basophils % (0.0-0.4) % Absolute Granulocytes (1.4-6.9) Basophils # (0-0.4) PT (8.83-12.87) SECONDS INR (0.8-3.0) APTT (24.1-36.1) SECONDS Sodium (137-145) mmol/L Potassium (3.5-5.1) mmol/L Chloride (98-107) mmol/L Carbon Dioxide (22-30) mmol/L Anion Gap (5-15) MEQ/L BUN (9-20) mg/dL Creatinine (0.66-1.25) mg/dL Estimated GFR ML/MIN Glucose (74-106) mg/dL Calcium (8.4-10.2) mg/dL Total Bilirubin (0.2-1.3) mg/dL AST (17-59) U/L ALT (0-50) U/L Alkaline Phosphatase (38-126) U/L Creatine Kinase (55-170) U/L Troponin I < 0.012 < 0.012 < 0.012 (0.000-0.034) ng/mL NT-Pro-B Natriuret Pep (0-900) pg/mL Serum Total Protein (6.3-8.2) g/dL Albumin (3.5-5.0) g/dL Triglycerides (30-150) mg/dL Cholesterol (50-200) mg/dL LDL Cholesterol (30-100) mg/dL HDL Cholesterol (40-60) mg/dL Heart Disease Risk Ratio 04/02/18 04/02/18 04/02/18 Range/Units 04:00 04:00 06:35 WBC (4.0-10.5) K/mm3 RBC (4.1-5.6) M/mm3 Hgb (12.5-18.0) gm/dl Hct (42-50) % MCV (78-100) fl MCH (26-32) pg MCHC (32-36) g/dl RDW (11.5-14.0) % Plt Count (150-450) K/mm3 MPV (6-9.5) fl Gran % (36.0-66.0) % Eos # (Auto) (0-0.5) Absolute Lymphs (auto) (1.0-4.6) Absolute Monos (auto) (0.0-1.3) Lymphocytes % (24.0-44.0) % Monocytes % (0.0-12.0) % Eosinophils % (0.00-5.0) % Basophils % (0.0-0.4) % Absolute Granulocytes (1.4-6.9) Basophils # (0-0.4) PT (8.83-12.87) SECONDS INR (0.8-3.0) APTT (24.1-36.1) SECONDS Sodium (137-145) mmol/L Potassium (3.5-5.1) mmol/L Chloride (98-107) mmol/L Carbon Dioxide (22-30) mmol/L Anion Gap (5-15) MEQ/L BUN (9-20) mg/dL Creatinine (0.66-1.25) mg/dL Estimated GFR ML/MIN Glucose (74-106) mg/dL Calcium (8.4-10.2) mg/dL Total Bilirubin (0.2-1.3) mg/dL AST (17-59) U/L ALT (0-50) U/L Alkaline Phosphatase (38-126) U/L Creatine Kinase (55-170) U/L Troponin I < 0.012 < 0.012 (0.000-0.034) ng/mL NT-Pro-B Natriuret Pep (0-900) pg/mL Serum Total Protein (6.3-8.2) g/dL Albumin (3.5-5.0) g/dL Triglycerides 174 H (30-150) mg/dL Cholesterol 240 H (50-200) mg/dL LDL Cholesterol 159 H (30-100) mg/dL HDL Cholesterol 32 L (40-60) mg/dL Heart Disease Risk Ratio 7.5 - Radiology Impressions Radiology Exams & Impressions: Radiology Procedures Category Date Time Status CHEST 2 VIEWS (PA AND LAT) Stat Exams 04/01/18 19:39 Completed - Other Procedures and Tests Respiratory Therapy 04/03/18 05:00 EKG ROUTINE 04/04/18 05:00 EKG ROUTINE 04/05/18 05:00 EKG ROUTINE Assessment/Plan (1) Hyperlipemia Status: Acute Code(s): E78.5 - HYPERLIPIDEMIA, UNSPECIFIED (2) Chest pain, rule out acute myocardial infarction Status: Acute Code(s): R07.9 - CHEST PAIN, UNSPECIFIED (3) Hypertension Status: Acute Code(s): I10 - ESSENTIAL (PRIMARY) HYPERTENSION Hospital Summary - Hospital Course Hospital Course: Last Vital Signs Temp 98.6 F 04/02/18 12:00 Pulse 66 04/02/18 12:00 Resp 18 04/02/18 12:00 BP 141/84 04/02/18 12:00 Pulse Ox 96 04/02/18 12:00 Allergies No Known Drug Allergies Allergy (Verified 04/01/18 18:22) Active Medications Acetaminophen (Tylenol 325 Mg) 650 mg PO Q4H PRN PRN PRN Reason: PAIN AND/OR FEVER Stop: 05/01/18 20:21 Last Admin: 04/01/18 21:15 Dose: 650 mg Hydrocodone Bitart/Acetaminophen (Macon 10/325 Mg Tablet) 1 tab PO Q6H PRN PRN PRN Reason: PAIN Stop: 04/06/18 22:10 Last Admin: 04/02/18 08:21 Dose: 1 tab Al Hydrox/Mg Hydrox/Simethicone (Maalox Es 30 Ml Unit Dose) 30 ml PO Q4H PRN PRN PRN Reason: INDIGESTION Stop: 05/01/18 20:21 Aspirin (Ecotrin 325 Mg) 325 mg PO DAILY [facility] Stop: 05/02/18 09:59 Last Admin: 04/02/18 09:44 Dose: 325 mg Azithromycin (Zithromax 250 Mg Tablet) 500 mg PO DAILY [facility] Stop: 05/02/18 09:59 Last Admin: 04/02/18 09:44 Dose: 500 mg Carvedilol (Coreg 12.5 Mg) [address] [facility] Stop: 05/02/18 21:59 Last Admin: 04/01/18 22:45 Dose: 25 mg Fluoxetine HCl (Prozac 10 Mg) [address] [facility] Stop: 05/01/18 21:59 Last Admin: 04/01/18 22:45 Dose: 10 mg Hydrochlorothiazide (Hydrodiuril 25 Mg) 12.[address] [facility] Stop: 05/01/18 21:59 Last Admin: 04/01/18 22:45 Dose: 12.5 mg Sodium Chloride (Sodium Chloride 0.9% 1000 Ml) 1,000 mls @ 100 mls/hr IV .Q10H [facility]I Stop: 05/01/18 18:29 Last Admin: 04/02/18 05:08 Dose: 100 mls/hr Lisinopril (Zestril 10 Mg) [address] [facility] Stop: 05/01/18 21:59 Last Admin: 04/01/18 22:45 Dose: 30 mg Magnesium Hydroxide (Milk Of Magnesia 30 Ml) 30 - 60 ml PO QDP PRN PRN Reason: CONSTIPATION Stop: 05/01/18 20:21 Metoprolol Tartrate (Lopressor 25mg Tab) 25 mg PO BID [facility] Stop: 05/01/18 21:59 Last Admin: 04/02/18 09:44 Dose: 25 mg Nitroglycerin (Nitrostat 0.4 Mg Tablet) 0.4 mg SL Q5MIN PRN MR X 3 PRN PRN Reason: CHEST PAIN Stop: 05/02/18 02:18 Ondansetron HCl (Zofran 4 Mg/2 Ml Vial) 4 mg IV Q4H PRN PRN PRN Reason: NAUSEA/VOMITING Stop: 05/01/18 20:21 Senna/Docusate Sodium (Senokot-S Tablet) 2 udtab PO BID PRN PRN PRN Reason: CONSTIPATION Stop: 05/01/18 20:21 Intake & Output 04/02/18 04/03/18 11:59 11:59 Intake Total 1605 780 Balance 1605 780 Weight 120.41 kg Orders 04/01/18 21:26 Cardio-Pulmonary Rehab .as ordered 04/01/18 22:00 Fluoxetine HCl 10 mg [Prozac 10 mg] 10 mg PO HS Hydrochlorothiazide 25 mg [hydroDIURIL 25 MG] 12.5 mg PO HS Lisinopril 10 mg [Zestril 10 MG] 30 mg PO HS 04/01/18 22:11 Hydrocodone/APAP 10/325 mg [Macon 10/325 MG Tablet] 1 tab PO Q6H PRN PRN 04/02/18 02:19 Nitroglycerin 0.4 mg Tablet [Nitrostat 0.4 MG Tablet] 0.4 mg SL Q5MIN PRN MR X 3 PRN 04/02/18 10:00 Azithromycin 250 mg [Zithromax 250 MG TABLET] 500 mg PO DAILY 04/02/18 22:00 Carvedilol 12.5 mg [Coreg 12.5 mg] 25 mg PO HS 04/02/18 Breakfast Cardiac Diet 04/03/18 05:00 EKG ROUTINE 04/04/18 05:00 EKG ROUTINE 04/05/18 05:00 EKG ROUTINE Lab Tests 04/01/18 04/01/18 04/01/18 18:20 18:20 18:20 WBC 14.5 H RBC 5.06 Hgb 15.8 Hct 47.1 MCV 93.1 MCH 31.2 MCHC 33.5 RDW 13.8 Plt Count 248 MPV 10.8 H Gran % 60.6 Eos # (Auto) 0.24 Absolute Lymphs (auto) 4.22 Absolute Monos (auto) 1.20 Lymphocytes % 29.0 Monocytes % 8.3 Eosinophils % 1.7 Basophils % 0.4 Absolute Granulocytes 8.81 H Basophils # 0.06 PT 11.6 INR 1.00 APTT 26.5 Sodium 140 Potassium 4.5 Chloride 103 Carbon Dioxide 26 Anion Gap 15.1 H BUN 22 H Creatinine 1.27 H Estimated GFR > 60.0 Glucose 159 H Calcium 10.0 Total Bilirubin 0.40 AST 22 ALT 23 Alkaline Phosphatase 93 Creatine Kinase 42 L Troponin I NT-Pro-B Natriuret Pep 33.6 Serum Total Protein 8.3 H Albumin 4.7 Triglycerides Cholesterol LDL Cholesterol HDL Cholesterol Heart Disease Risk Ratio 04/01/18 04/01/18 04/02/18 18:20 21:45 00:35 WBC RBC Hgb Hct MCV MCH MCHC RDW Plt Count MPV Gran % Eos # (Auto) Absolute Lymphs (auto) Absolute Monos (auto) Lymphocytes % Monocytes % Eosinophils % Basophils % Absolute Granulocytes Basophils # PT INR APTT Sodium Potassium Chloride Carbon Dioxide Anion Gap BUN Creatinine Estimated GFR Glucose Calcium Total Bilirubin AST ALT Alkaline Phosphatase Creatine Kinase Troponin I < 0.012 < 0.012 < 0.012 NT-Pro-B Natriuret Pep Serum Total Protein Albumin Triglycerides Cholesterol LDL Cholesterol HDL Cholesterol Heart Disease Risk Ratio 04/02/18 04/02/18 04/02/18 04:00 04:00 06:35 WBC RBC Hgb Hct MCV MCH MCHC RDW Plt Count MPV Gran % Eos # (Auto) Absolute Lymphs (auto) Absolute Monos (auto) Lymphocytes % Monocytes % Eosinophils % Basophils % Absolute Granulocytes Basophils # PT INR APTT Sodium Potassium Chloride Carbon Dioxide Anion Gap BUN Creatinine Estimated GFR Glucose Calcium Total Bilirubin AST ALT Alkaline Phosphatase Creatine Kinase Troponin I < 0.012 < 0.012 NT-Pro-B Natriuret Pep Serum Total Protein Albumin Triglycerides 174 H Cholesterol 240 H LDL Cholesterol 159 H HDL Cholesterol 32 L Heart Disease Risk Ratio 7.5 - Vitals & Intake/Output Vital Signs: Vital Signs Temperature 98.6 F 04/02/18 12:00 Pulse Rate 66 04/02/18 12:00 Respiratory Rate 18 04/02/18 12:00 Blood Pressure 141/84 04/02/18 12:00 O2 Sat by Pulse Oximetry 96 04/02/18 12:00 Oxygen-Last Documented O2 Percentage 2 Liters = 28% Intake & Output: Intake & Output 03/31/18 04/01/18 04/02/18 04/03/18 11:59 11:59 11:59 11:59 Intake Total 1605 780 Balance 1605 780 Weight 120.41 kg - Lab Result Diagrams: 04/01/18 18:20 04/01/18 18:20 Lab Results-Last 24 Hrs: Lab Results-Last 24 Hours 04/01/18 04/01/18 04/01/18 Range/Units 18:20 18:20 18:20 WBC 14.5 H (4.0-10.5) K/mm3 RBC 5.06 (4.1-5.6) M/mm3 Hgb 15.8 (12.5-18.0) gm/dl Hct 47.1 (42-50) % MCV 93.1 (78-100) fl MCH 31.2 (26-32) pg MCHC 33.5 (32-36) g/dl RDW 13.8 (11.5-14.0) % Plt Count 248 (150-450) K/mm3 MPV 10.8 H (6-9.5) fl Gran % 60.6 (36.0-66.0) % Eos # (Auto) 0.24 (0-0.5) Absolute Lymphs (auto) 4.22 (1.0-4.6) Absolute Monos (auto) 1.20 (0.0-1.3) Lymphocytes % 29.0 (24.0-44.0) % Monocytes % 8.3 (0.0-12.0) % Eosinophils % 1.7 (0.00-5.0) % Basophils % 0.4 (0.0-0.4) % Absolute Granulocytes 8.81 H (1.4-6.9) Basophils # 0.06 (0-0.4) PT 11.6 (8.83-12.87) SECONDS INR 1.00 (0.8-3.0) APTT 26.5 (24.1-36.1) SECONDS Sodium 140 (137-145) mmol/L Potassium 4.5 (3.5-5.1) mmol/L Chloride 103 (98-107) mmol/L Carbon Dioxide 26 (22-30) mmol/L Anion Gap 15.1 H (5-15) MEQ/L BUN 22 H (9-20) mg/dL Creatinine 1.27 H (0.66-1.25) mg/dL Estimated GFR > 60.0 ML/MIN Glucose 159 H (74-106) mg/dL Calcium 10.0 (8.4-10.2) mg/dL Total Bilirubin 0.40 (0.2-1.3) mg/dL AST 22 (17-59) U/L ALT 23 (0-50) U/L Alkaline Phosphatase 93 (38-126) U/L Creatine Kinase 42 L (55-170) U/L Troponin I (0.000-0.034) ng/mL NT-Pro-B Natriuret Pep 33.6 (0-900) pg/mL Serum Total Protein 8.3 H (6.3-8.2) g/dL Albumin 4.7 (3.5-5.0) g/dL Triglycerides (30-150) mg/dL Cholesterol (50-200) mg/dL LDL Cholesterol (30-100) mg/dL HDL Cholesterol (40-60) mg/dL Heart Disease Risk Ratio 04/01/18 04/01/18 04/02/18 Range/Units 18:20 21:45 00:35 WBC (4.0-10.5) K/mm3 RBC (4.1-5.6) M/mm3 Hgb (12.5-18.0) gm/dl Hct (42-50) % MCV (78-100) fl MCH (26-32) pg MCHC (32-36) g/dl RDW (11.5-14.0) % Plt Count (150-450) K/mm3 MPV (6-9.5) fl Gran % (36.0-66.0) % Eos # (Auto) (0-0.5) Absolute Lymphs (auto) (1.0-4.6) Absolute Monos (auto) (0.0-1.3) Lymphocytes % (24.0-44.0) % Monocytes % (0.0-12.0) % Eosinophils % (0.00-5.0) % Basophils % (0.0-0.4) % Absolute Granulocytes (1.4-6.9) Basophils # (0-0.4) PT (8.83-12.87) SECONDS INR (0.8-3.0) APTT (24.1-36.1) SECONDS Sodium (137-145) mmol/L Potassium (3.5-5.1) mmol/L Chloride (98-107) mmol/L Carbon Dioxide (22-30) mmol/L Anion Gap (5-15) MEQ/L BUN (9-20) mg/dL Creatinine (0.66-1.25) mg/dL Estimated GFR ML/MIN Glucose (74-106) mg/dL Calcium (8.4-10.2) mg/dL Total Bilirubin (0.2-1.3) mg/dL AST (17-59) U/L ALT (0-50) U/L Alkaline Phosphatase (38-126) U/L Creatine Kinase (55-170) U/L Troponin I < 0.012 < 0.012 < 0.012 (0.000-0.034) ng/mL NT-Pro-B Natriuret Pep (0-900) pg/mL Serum Total Protein (6.3-8.2) g/dL Albumin (3.5-5.0) g/dL Triglycerides (30-150) mg/dL Cholesterol (50-200) mg/dL LDL Cholesterol (30-100) mg/dL HDL Cholesterol (40-60) mg/dL Heart Disease Risk Ratio 04/02/18 04/02/18 04/02/18 Range/Units 04:00 04:00 06:35 WBC (4.0-10.5) K/mm3 RBC (4.1-5.6) M/mm3 Hgb (12.5-18.0) gm/dl Hct (42-50) % MCV (78-100) fl MCH (26-32) pg MCHC (32-36) g/dl RDW (11.5-14.0) % Plt Count (150-450) K/mm3 MPV (6-9.5) fl Gran % (36.0-66.0) % Eos # (Auto) (0-0.5) Absolute Lymphs (auto) (1.0-4.6) Absolute Monos (auto) (0.0-1.3) Lymphocytes % (24.0-44.0) % Monocytes % (0.0-12.0) % Eosinophils % (0.00-5.0) % Basophils % (0.0-0.4) % Absolute Granulocytes (1.4-6.9) Basophils # (0-0.4) PT (8.83-12.87) SECONDS INR (0.8-3.0) APTT (24.1-36.1) SECONDS Sodium (137-145) mmol/L Potassium (3.5-5.1) mmol/L Chloride (98-107) mmol/L Carbon Dioxide (22-30) mmol/L Anion Gap (5-15) MEQ/L BUN (9-20) mg/dL Creatinine (0.66-1.25) mg/dL Estimated GFR ML/MIN Glucose (74-106) mg/dL Calcium (8.4-10.2) mg/dL Total Bilirubin (0.2-1.3) mg/dL AST (17-59) U/L ALT (0-50) U/L Alkaline Phosphatase (38-126) U/L Creatine Kinase (55-170) U/L Troponin I < 0.012 < 0.012 (0.000-0.034) ng/mL NT-Pro-B Natriuret Pep (0-900) pg/mL Serum Total Protein (6.3-8.2) g/dL Albumin (3.5-5.0) g/dL Triglycerides 174 H (30-150) mg/dL Cholesterol 240 H (50-200) mg/dL LDL Cholesterol 159 H (30-100) mg/dL HDL Cholesterol 32 L (40-60) mg/dL Heart Disease Risk Ratio 7.5 - Radiology Exams Ordered Rad Exams-Entire Visit: Radiology Procedures Category Date Time Status CHEST 2 VIEWS (PA AND LAT) Stat Exams 04/01/18 19:39 Completed - Procedures and Test Procedures and Tests throughout Hospitalization: Therapy Orders & Screens 04/01/18 20:24 Oxygen NASAL CANNULA 2 lpm Comment: chest pain Diagnosis: CP R/O MS 04/01/18 21:40 Smoking Cessation Education ONCE Comment: Diagnosis: CP R/O MS Smoking Status: Heavy tobacco smoker How long have you smoked: 30 yrs Have you smoked in the past 12 months: Yes Do you dip or chew tobacco: No 04/02/18 02:11 EKG ROUTINE Comment: Diagnosis: CP R/O MS 04/03/18 05:00 EKG ROUTINE Comment: Diagnosis: CP R/O MS 04/04/18 05:00 EKG ROUTINE Comment: Diagnosis: CP R/O MS 04/05/18 05:00 EKG ROUTINE Comment: Diagnosis: CP R/O MS - Discharge Discharge Date: 04/02/18 Disposition: Home, Self-Care Condition: Stable Prescriptions: New Pravastatin Sodium [Pravachol] 20 mg PO HS #30 tablet Azithromycin [Zithromax Tri-Nick] 500 mg PO UD #3 tablet Continue Hydrocodone/APAP 10/325 mg [Macon 10/325 MG Tablet] 1 tab PO Q6H PRN PRN Reason: Pain Lisinopril [Zestril] 30 mg PO HS Hydrochlorothiazide 12.5 mg PO HS Carvedilol 12.5 mg [Coreg 12.5 mg] 25 mg PO HS Fluoxetine HCl 10 mg [Prozac 10 mg] 10 mg PO HS Instructions: Heart Healthy Diet, Chest Pain (DC), Quitting Smoking Follow up with: LESTER DAVIDSON MD [NON-STAFF PHY W/O PRIVILEGES] - 04/11/18 8:20 am (AT [facility]) PIYUSH PLAZA MD [Primary Care Provider] - 04/09/18 9:30 am (at [facility] ) Forms: Discharge Instructions
[2018-04-02] MEDS ORDERED: COREG 12.5 MG PO SCH (22:00)
== END 2018-04-02 13:41 | disposition home or self-care (01) ==
LOC: ED 18:12 → MED SURG 20:44
PROVIDERS: ADMIT General Practice; ATTEND General Practice
DX: E78.5 Hyperlipidemia, unspecified (principal); R07.9 Chest pain, unspecified; I10 Essential (primary) hypertension
CPT/HCPCS: 36000; 36415; 71046; 80053; 80061; 82550; 83721; 83880; 84484; 85025; 85610; 85730; 93005; 93041; 93268; 96360; 96361; 96374; 96375; 99285; G0378; J2270; A9270-GY

== ENCOUNTER 2018-10-20 15:37 | Emergency (ER) | payer MEDICAID ==
[2018-10-20] MEDS ORDERED: MOTRIN 400 MG PO ONE (16:28)
[2018-10-20] MEDS ORDERED: MOTRIN 400 MG ONE (16:35)
--- NOTE | 2018-10-20 16:45 | ERPHSYRPT ---
- History of Present Illness Time Seen by Provider: 10/20/18 16:21 Source: patient Exam Limitations: no limitations Patient Subjective Stated Complaint: " The bottom of my feet and right knee hurts. I jumped into the shallow end of a swimming pool yesterday and have had pain since" Triage Nursing Assessment: AAox3, color good, resp easy, c/o pain in right knee , bottom of both feet especially heel area. States jumped in shallow end of pool yesterday and immediately had pain in areas mentioned. No obvious deformities noted. Mild swelling to right knee noted. Physician History: Pt states he was jumping in a pool this afternoon, where the water was shallow and landed on both feet, developed pain in both knees heels and right ankle, has difficulty walking due to pain. He denies head or other injury, or complaints. Method of Injury: other (jumped) Occurred: just prior to arrival Quality: constant Severity of Pain-Max: moderate Severity of Pain-Current: moderate Lower Extremities Pain: knee: bilateral, ankle: right, heel: bilateral Modifying Factors: Improves With: immobilization, movement Associated Symptoms: none Allergies/Adverse Reactions: No Known Drug Allergies Allergy (Verified 04/01/18 18:22) Home Medications: Carvedilol 12.5 mg [Coreg 12.5 mg] 25 mg PO HS 12/27/14 [History] Fluoxetine HCl 10 mg [Prozac 10 mg] 10 mg PO HS 12/27/14 [History] Hydrochlorothiazide 12.5 mg PO HS 12/27/14 [History] Hydrocodone/APAP 10/325 mg [Eastern 10/325 MG Tablet] 1 tab PO Q6H PRN 12/27 [History] Lisinopril [Zestril] 30 mg PO HS 12/27/14 [History] Clopidogrel Bisulfate 75 mg [PLAVIX 75 MG Tablet] 75 mg PO DAILY 10/20/18 [History] Hx Tetanus, Diphtheria Vaccination/Date Given: Yes Hx Influenza Vaccination/Date Given: No Hx Pneumococcal Vaccination/Date Given: No - Review of Systems Constitutional: No Symptoms Eyes: No Symptoms Ears, Nose, & Throat: No Symptoms Respiratory: No Symptoms Cardiac: No Symptoms Abdominal/Gastrointestinal: No Symptoms Genitourinary Symptoms: No Symptoms Musculoskeletal: Other (bilateral knee and heel pain, and right ankle pain, denies back or neck, head injury or pain.) Skin: No Symptoms Neurological: No Symptoms All Other Systems: Reviewed and Negative - Past Medical History Pertinent Past Medical History: Yes Neurological History: No Pertinent History ENT History: No Pertinent History Cardiac History: Hypertension, Myocardial Infarction ([place]) Respiratory History: No Pertinent History Endocrine Medical History: No Pertinent History Musculoskeletal History: No Pertinent History GI Medical History: Gallbladder Disease History: No Pertinent History Psycho-Social History: No Pertinent History Male Reproductive Disorders: No Pertinent History Other Medical History: RESTLESS LEG - Past Surgical History Past Surgical History: Yes Neuro Surgical History: No Pertinent History Cardiac: No Pertinent History Respiratory: No Pertinent History Gastrointestinal: Cholecystectomy Genitourinary: No Pertinent History Male Surgical History: No Pertinent History Other Surgical History: lymph node removed 25 yrs ago - Social History Smoking Status: Current every day smoker How long have you smoked: 35 Exposure to second hand smoke: Yes Drug Use: none Patient Lives Alone: Yes - Nursing Vital Signs Nursing Vital Signs: Initial Vital Signs Temperature 98.3 F 10/20/18 15:54 Pulse Rate 82 10/20/18 15:54 Pain Scale Pain Intensity 8 - Physical Exam General Appearance: no apparent distress Eyes, Ears, Nose, Throat Exam: normal ENT inspection Neck Exam: normal inspection, non-tender, supple Cardiovascular/Respiratory Exam: chest non-tender, normal breath sounds, regular rate/rhythm, heart sounds normal, no ecchymosis Gastrointestinal/Abdominal Exam: non-tender, soft Hips Exam: bilateral: non-tender Knees Exam: bilateral knee: soft tissue tenderness (bilateral diffuse (med.-lat. ) tenderness, normal ROM, no effusion, laxity or deformity.) Ankle Exam: right ankle: soft tissue tenderness (bimalleolar tendernesness, no swelling, ecchymosis, or deformity, good ROM,) Foot Exam: bilateral foot: soft tissue tenderness (both heels are tender, but no swelling, deformity, or ecchymosis. good distal pulses and sensation.) Neuro/Tendon Exam: normal sensation, normal motor functions Mental Status Exam: alert, oriented x 3, cooperative Skin Exam: normal color, warm, dry, No diaphoresis SpO2 Interpretation: normal O2 Delivery: Room Air - Course Nursing assessment & vital signs reviewed: Yes - Radiology Exams Left Knee X-ray Interpretation: Interpreted by me, Discussed w/ radiologist, Negative Right Knee X-ray Interpretation: Interpreted by me, Discussed w/ radiologist, Negative Right Ankle X-ray Interpretation: Interpreted by me, Discussed w/ radiologist, Negative Left Foot X-ray Interpretation: Interpreted by me, Discussed w/ radiologist, Negative Right Foot X-ray Interpretation: Interpreted by me, Discussed w/ radiologist, Negative Ordered Tests: Active Orders 24 hr Category Date Time Status ANKLE (3 VIEWS) Stat Exams 10/20/18 16:27 Taken FOOT (MINIMUM 3 VIEWS) Stat Exams 10/20/18 16:27 Taken FOOT (MINIMUM 3 VIEWS) Stat Exams 10/20/18 16:27 Taken KNEE (3 VIEWS) Stat Exams 10/20/18 16:26 Taken KNEE (3 VIEWS) Stat Exams 10/20/18 16:28 Taken Medication Summary Discontinued Medications Generic Name Dose Route Start Last Admin Trade Name Freq PRN Reason Stop Dose Admin Ibuprofen 400 mg 10/20/18 16:28 10/20/18 16:36 Motrin 400 Mg PO 10/20/18 16:29 400 mg STAT ONE Administration Ibuprofen Confirm 10/20/18 16:35 Motrin 400 Mg Administered 10/20/18 16:36 Dose 400 mg .ROUTE .STK-MED ONE Tramadol HCl 50 mg 10/20/18 17:57 10/20/18 18:02 Ultram 50 Mg PO 10/20/18 17:58 50 mg STAT ONE Administration Tramadol HCl Confirm 10/20/18 18:01 Ultram 50 Mg Administered 10/20/18 18:02 Dose 50 mg .ROUTE .STK-MED ONE - Progress Progress: improved Progress Note: 10/20/18 18:06 Pt was given Motrin, Ultram for pain, reviewed his X rays, discussed with Dr Mora , radiologist, he is being discharged in stable condition, rest with elevated legs x2-3 days, apply ice or cold compresses to painful areas, use walker as he did earlier today, follow up with his physician in 2-3 days. Counseled pt/family regarding: diagnosis, need for follow-up, rad results - Departure Departure Disposition: Home Clinical Impression: Knee contusion Qualifiers: Encounter type: initial encounter Laterality: unspecified laterality Qualified Code(s): S80.00XA - Contusion of unspecified knee, initial encounter Contusion of heel Qualifiers: Encounter type: initial encounter Laterality: unspecified laterality Qualified Code(s): S90.30XA - Contusion of unspecified foot, initial encounter Condition: Stable Critical Care Time: No Referrals: PIYUSH PLAZA MD [Primary Care Provider] - Instructions: Contusion (DC) Additional Instructions: Rest x 2-3 days with elevated legs, apply ice or cold compresses to painful areas, and follow up with your physician in 2-3 days, return if severe pain, swelling, sudden discoloration, coldness of the toes! Prescriptions: Tramadol HCl 50 mg [Ultram 50 mg] 50 mg PO Q6H PRN #10 tablet PRN Reason: Pain
[2018-10-20] MEDS ORDERED: ULTRAM 50 MG PO ONE (17:57)
[2018-10-20] MEDS ORDERED: ULTRAM 50 MG ONE (18:01)
[2018-10-20 18:04] VITALS: BP 150/93; PULSE 72; O2SAT 99
--- NOTE | 2018-10-20 18:46 | XRAY ---
Exam: 3 view left knee series from 10/20/2018. Comparison: None. Indication: Patient jumped into shallow water yesterday, complains of left knee pain. Findings: AP, internal oblique, and lateral radiographs are submitted for evaluation. Minimal vascular calcification is seen posteriorly at the adductor canal. I see no acute fracture, dislocation, or suprapatellar joint effusion. There is mild narrowing of the medial compartment of the left knee joint space with minimal marginal osteophyte formation medially. The lateral compartment of the left knee joint appears unremarkable. The lateral film is slightly rotated. No other focal bone lesion is seen. Impression: 1. Mild medial compartment osteoarthritis of the left knee. 2. No acute left knee fracture, dislocation, or suprapatellar joint effusion is seen.
--- NOTE | 2018-10-20 19:12 | XRAY ---
Exam: 3 view right ankle series from 10/20/2018. Comparison: None. Indication: Jumped into shallow water yesterday, complains of pain. Findings: AP, oblique, and lateral radiographs of the right ankle were obtained. I see no acute fracture or dislocation. The right ankle mortise is well-preserved. An old appearing, small, sclerotic rimmed calcification is seen adjacent to the distal right fibula. I believe there is some minimal spurring at the medial malleolus tip. There is also minimal spurring at the distal anterior margin of the right tibia on the lateral radiograph. Mild plantar right calcaneal spurring is noted. Impression: 1. No acute right ankle fracture or dislocation is seen. No definite anterior right ankle joint effusion is seen. 2. Mild plantar right calcaneal spur and minimal spurring of the distal right tibia are seen. 3. Small, old appearing, oval-shaped heterotopic calcification adjacent to distal right fibula.
--- NOTE | 2018-10-20 19:16 | XRAY ---
Exam: 3 view left foot series from 10/20/2018. Comparison: None. Indication: Patient jumped into shallow water yesterday, complains of pain. Findings: AP, oblique, and lateral radiographs of the left foot were obtained. I see no acute fracture or dislocation. Mild plantar left calcaneal spurring is seen. The plantar arch appears unremarkable. No radiopaque soft tissue foreign body is seen. The tarsals aligned correctly with the metatarsals. I cannot exclude a minimal exostosis along the lateral margin of the proximal phalanx of the left second toe. I don't believe this is significant. Impression: 1. No acute left foot fracture or dislocation is seen. 2. Mild plantar left calcaneal spurring.
--- NOTE | 2018-10-20 19:20 | XRAY ---
Exam: 3 views of the right foot from 10/20/2018. Comparison: None. Indication: 53-year-old male jumped into shallow water yesterday, complains of pain. Findings: AP, oblique, and lateral radiographs of the right foot were obtained. I see no acute fracture or dislocation of the right foot. The tarsals align correctly with the metatarsals. There is an unremarkable plantar arch. Mild plantar right calcaneal spurring is seen. No radiopaque soft tissue foreign body is seen. No other focal bone lesion is seen. Impression: 1. No acute right foot fracture or dislocation is seen. 2. Mild plantar right calcaneal spurring.
--- NOTE | 2018-10-20 20:16 | XRAY ---
Exam: 3 views of the right knee from 10/20/2018. Comparison: None. Indication: 53-year-old male jumped into shallow water yesterday, complains of pain. Findings: AP, oblique, and lateral radiographs were obtained. The lateral view is slightly rotated. I see no acute right knee fracture or dislocation. No definite suprapatellar joint effusion is seen. There is a tiny spur at both the upper posterior and lower posterior margins of the right patella. The patellofemoral joint does not appear significantly narrowed. There is moderate to marked narrowing at the far medial aspect of the right knee joint indicating medial compartment osteoarthritis. The lateral compartment of the right knee joint is adequately maintained. Minimal spurring is seen at the level the intercondylar notch. No other focal bone lesion is seen. Impression: 1. No acute fracture, dislocation, or definite suprapatellar joint effusion is seen. 2. Moderate to marked osteoarthritis affecting the medial margin of the medial compartment of the right knee joint. I also see minimal posterior right patellar spurring and minimal hypertrophic spurring at the level of the intercondylar notch.
== END 2018-10-20 18:20 | disposition home or self-care (01) ==
LOC: ED 15:37
DX: S80.00XA Contusion of unspecified knee, initial encounter (principal); S90.30XA Contusion of unspecified foot, initial encounter; W16.92XA Jumping or diving into unspecified water causing other injury, initial encounter
CPT/HCPCS: 73562; 73610; 73630; 99284; A9270-GY

== ENCOUNTER 2018-12-29 11:45 | Emergency (ER) | payer MEDICAID, OTHER ==
[2018-12-29] MEDS ORDERED: BABY ASPIRIN 81 MG CHEW PO ONE (11:56)
--- NOTE | 2018-12-29 11:56 | ERPHSYRPT ---
- History of Present Illness Time Seen by Provider: 12/29/18 11:56 Historian: patient, family Exam Limitations: no limitations Physician History: 53 y/o white male with sig cardiac dz including MIs in past and [address] presents with central substernal with radiation into left arm. same sx of prior MIs. pain began last pm. sx resolved with a single NTG. this am cp recurred. pt took 2 ntg and a single baby asa. pt is on plavix. cp has improved but not completely resolved. 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 Timing/Duration: yesterday, improved (but persists) Location: substernal, central Chest Pain Radiation: arm (left) Severity of Pain-Max: moderate Severity of Pain-Current: mild Modifying Factors: Improves With: nitroglycerin, aspirin Associated Symptoms: denies symptoms Prior Chest Pain/Cardiac Workup: cardiac cath, heart attack Nitro Today/Relief: 0.4 mg x 3, provided at home, mild relief Aspirin Treatment Today: 81 mg x 1, provided at home Allergies/Adverse Reactions: No Known Drug Allergies Allergy (Verified 12/29/18 11:59) Home Medications: Carvedilol 12.5 mg [Coreg 12.5 mg] 25 mg PO HS 12/27/14 [History] Fluoxetine HCl 10 mg [Prozac 10 mg] 10 mg PO HS 12/27/14 [History] Hydrochlorothiazide 12.5 mg PO HS 12/27/14 [History] Lisinopril [Zestril] 30 mg PO HS 12/27/14 [History] Clopidogrel Bisulfate 75 mg [PLAVIX 75 MG Tablet] 75 mg PO DAILY 10/20/18 [History] Aspirin EC 81 mg [Ecotrin 81 mg] 81 mg PO DAILY 12/29/18 [History] Atorvastatin Calcium [Lipitor] 40 mg PO DAILY 12/29/18 [History] Isosorbide Mononitrate 30 mg [Imdur 30 MG] 30 mg PO DAILY 12/29/18 [History ] Metformin HCl Xr 500 mg [Glucophage XR 500 MG] 500 mg PO DAILY 12/29/18 [ History] Nabumetone 500 mg PO BID 12/29/18 [History] Nitroglycerin 0.4 mg Tablet [Nitrostat 0.4 MG Tablet] 1 tab PO UD PRN [History] Hx Tetanus, Diphtheria Vaccination/Date Given: Yes Hx Influenza Vaccination/Date Given: No Hx Pneumococcal Vaccination/Date Given: No - Review of Systems Constitutional: No Symptoms Eyes: No Symptoms Ears, Nose, & Throat: No Symptoms Respiratory: Dyspnea (mild) Cardiac: Chest Pain Abdominal/Gastrointestinal: No Symptoms Genitourinary Symptoms: No Symptoms Musculoskeletal: No Symptoms Skin: No Symptoms Neurological: No Symptoms Psychological: No Symptoms Endocrine: No Symptoms Hematologic/Lymphatic: No Symptoms Immunological/Allergic: No Symptoms All Other Systems: Reviewed and Negative - Past Medical History Pertinent Past Medical History: Yes Neurological History: No Pertinent History ENT History: No Pertinent History Cardiac History: Hypertension, Myocardial Infarction ([place]) Respiratory History: No Pertinent History Endocrine Medical History: No Pertinent History Musculoskeletal History: No Pertinent History GI Medical History: Gallbladder Disease History: No Pertinent History Psycho-Social History: No Pertinent History Male Reproductive Disorders: No Pertinent History Other Medical History: RESTLESS LEG - Past Surgical History Past Surgical History: Yes Neuro Surgical History: No Pertinent History Cardiac: No Pertinent History Respiratory: No Pertinent History Gastrointestinal: Cholecystectomy Genitourinary: No Pertinent History Male Surgical History: No Pertinent History Other Surgical History: lymph node removed 25 yrs ago - Social History Smoking Status: Current every day smoker How long have you smoked: 35 Exposure to second hand smoke: Yes Drug Use: none Patient Lives Alone: Yes - Nursing Vital Signs Nursing Vital Signs: Initial Vital Signs Temperature 99.3 F 12/29/18 11:46 Pulse Rate 79 12/29/18 11:46 Respiratory Rate 18 12/29/18 11:46 Blood Pressure 163/104 12/29/18 11:46 O2 Sat by Pulse Oximetry 96 12/29/18 11:46 Pain Scale Pain Intensity 0 - Physical Exam General Appearance: no apparent distress, alert, anxiety Eye Exam: PERRL/EOMI, eyes nml inspection Ears, Nose, Throat Exam: normal ENT inspection, moist mucous membranes Neck Exam: normal inspection, non-tender, supple, full range of motion Respiratory Exam: normal breath sounds, lungs clear, airway intact, No chest tenderness, No respiratory distress Cardiovascular Exam: regular rate/rhythm, normal heart sounds, normal peripheral pulses Gastrointestinal/Abdomen Exam: soft, normal bowel sounds, No tenderness Rectal Exam: not done Back Exam: normal inspection, normal range of motion, No CVA tenderness, No vertebral tenderness Extremity Exam: normal inspection, normal range of motion, pelvis stable Neurologic Exam: alert, oriented x 3, cooperative, stone decorator II-XII nml as tested Skin Exam: normal color, warm, dry Lymphatic Exam: No adenopathy SpO2 Interpretation: normal O2 Delivery: Room Air - Course Nursing assessment & vital signs reviewed: Yes EKG Interpreted by Me: RATE (78), Sinus Rhythm, NORMAL AXIS, NORMAL INTERVALS, NORMAL QRS, Other (comparison ekg no changes) Ordered Tests: Active Orders 24 hr Category Date Time Status Facility Sales And Admin STAT Care 12/29/18 11:58 Active EKG-ER Only STAT Care 12/29/18 11:56 Active IV Insertion STAT Care 12/29/18 11:56 Active Pulse Oximetry (ED) STAT Care 12/29/18 11:56 Active CBC W DIFF Stat Lab 12/29/18 12:08 Completed CMP Stat Lab 12/29/18 12:08 Completed NT PRO BNP Stat Lab 12/29/18 12:08 Completed PROTIME WITH INR Stat Lab 12/29/18 12:08 Received TROPONIN Q3H Lab 12/29/18 12:08 Completed TROPONIN Q3H Lab 12/29/18 16:45 Ordered TROPONIN Q3H Lab 12/29/18 19:45 Ordered TROPONIN Q3H Lab 12/29/18 22:45 Ordered Medication Summary Discontinued Medications Generic Name Dose Route Start Last Admin Trade Name Freq PRN Reason Stop Dose Admin Aspirin 324 mg 12/29/18 11:56 12/29/18 12:11 Baby Aspirin 81 Mg Chew PO 12/29/18 11:57 243 mg STAT ONE Administration Aspirin Confirm 12/29/18 12:10 Baby Aspirin 81 Mg Chew Administered 12/29/18 12:11 Dose 243 mg .ROUTE .STK-MED ONE Morphine Sulfate 2 mg 12/29/18 13:07 12/29/18 13:32 Morphine Sulfate 2 Mg Inj IV 12/29/18 13:08 2 mg STAT ONE Administration Morphine Sulfate Confirm 12/29/18 13:30 Morphine Sulfate 2 Mg Inj Administered 12/29/18 13:31 Dose 2 mg .ROUTE .STK-MED ONE Lab/Rad Data: Laboratory Result Diagrams 12/29/18 12:08 12/29/18 12:08 Laboratory Results 12/29/18 12/29/18 12/29/18 Range/Units 12:08 12:08 12:08 WBC 12.3 H (4.0-10.5) K/mm3 RBC 4.54 (4.1-5.6) M/mm3 Hgb 14.1 (12.5-18.0) gm/dl Hct 42.6 (42-50) % MCV 93.8 (78-100) fl MCH 31.1 (26-32) pg MCHC 33.1 (32-36) g/dl RDW 13.5 (11.5-14.0) % Plt Count 197 (150-450) K/mm3 MPV 11.2 H (6-9.5) fl Gran % 71.2 H (36.0-66.0) % Eos # (Auto) 0.24 (0-0.5) Absolute Lymphs (auto) 2.63 (1.0-4.6) Absolute Monos (auto) 0.66 (0.0-1.3) Lymphocytes % 21.3 L (24.0-44.0) % Monocytes % 5.3 (0.0-12.0) % Eosinophils % 1.9 (0.00-5.0) % Basophils % 0.3 (0.0-0.4) % Absolute Granulocytes 8.77 H (1.4-6.9) Basophils # 0.04 (0-0.4) Sodium 141 (137-145) mmol/L Potassium 4.3 (3.5-5.1) mmol/L Chloride 107 (98-107) mmol/L Carbon Dioxide 24 (22-30) mmol/L Anion Gap 14.2 (5-15) MEQ/L BUN 21 H (9-20) mg/dL Creatinine 1.17 (0.66-1.25) mg/dL Estimated GFR > 60.0 ML/MIN Glucose 166 H (74-106) mg/dL Calcium 9.7 (8.4-10.2) mg/dL Total Bilirubin 0.60 (0.2-1.3) mg/dL AST 26 (17-59) U/L ALT 24 (0-50) U/L Alkaline Phosphatase 91 (38-126) U/L Troponin I < 0.012 (0.000-0.034) ng/mL NT-Pro-B Natriuret Pep 307 (0-900) pg/mL Serum Total Protein 7.2 (6.3-8.2) g/dL Albumin 4.1 (3.5-5.0) g/dL - Progress Progress: improved, re-examined Air Movement: good Progress Note: 12/29/18 14:56 pt with persistent but improved cp. spoke first with dr. kruse, pts tank builder and erector, who agrees pt should be transferred to [facility]. dr. Sutherland, cardologist correctional cook at [facility] accepts pt in transfer. no recommendations Blood Culture(s) Obtained: No Antibiotics given: No Discussed with Dr.: Other (cardiologists dr. kruse and dr. sutherland at [facility] in [place].) Counseled pt/family regarding: lab results, diagnosis - Departure Departure Disposition: Home Clinical Impression: Chest pain, Acute coronary syndrome without high troponin Condition: Stable Critical Care Time: Yes Critical Care Time(excluding separately billable procedures): Critical 30-74 mins Referrals: PIYUSH PLAZA MD [Primary Care Provider] -
[2018-12-29] MEDS ORDERED: BABY ASPIRIN 81 MG CHEW ONE (12:10)
[2018-12-29 12:18] LABS: Absolute Neutrophil Ct (ANC) 8.77 (1.4-6.9); BASOPHIL % 0.3 % (0.0-0.4); Basophil (Absolute #) 0.04 (0-0.4); Eosinophil % 1.9 % (0.00-5.0); Eosinophil (Absolute #) 0.24 (0-0.5); Hematocrit 42.6 % (42-50); Hemoglobin 14.1 gm/dl (12.5-18.0); Lymphocyte (Absolute #) 2.63 (1.0-4.6); Lymphocytes % 21.3 % (24.0-44.0); Mean Cell Volume 93.8 fl (78-100); Mean Corpuscular Hemoglobin 31.1 pg (26-32); Mean Corpuscular Hgb Concent. 33.1 g/dl (32-36); Mean Platelet Volume 11.2 fl (6-9.5); Monocyte (Absolute #) 0.66 (0.0-1.3); Monocytes % 5.3 % (0.0-12.0); Neutrophil % 71.2 % (36.0-66.0); Platelet Count 197 K/mm3 (150-450); Red Blood Count 4.54 M/mm3 (4.1-5.6); Red Cell Distribution Width 13.5 % (11.5-14.0); White Blood Count 12.3 K/mm3 (4.0-10.5)
[2018-12-29 12:38] LABS: ALBUMIN 4.1 g/dL (3.5-5.0); ALKALINE PHOSPHATASE 91 U/L (38-126); ANION GAP 14.2 MEQ/L (5-15); BLOOD UREA NITROGEN 21 mg/dL (9-20); CHLORIDE 107 mmol/L (98-107); Calcium 9.7 mg/dL (8.4-10.2); Carbon Dioxide 24 mmol/L (22-30); Creatinine 1 1.17 mg/dL (0.66-1.25); Glucose 166 mg/dL (74-106); NT PRO BNP 307 pg/mL (0-900); Potassium 4.3 mmol/L (3.5-5.1); SGOT/AST 26 U/L (17-59); SGPT/ALT 24 U/L (0-50); SODIUM 141 mmol/L (137-145); Total Protein 7.2 g/dL (6.3-8.2)
[2018-12-29] MEDS ORDERED: MORPHINE SULFATE 2 MG INJ IV ONE ×2 (13:07→16:59)
[2018-12-29] MEDS ORDERED: MORPHINE SULFATE 2 MG INJ ONE ×2 (13:30→17:00)
[2018-12-29 14:52] LABS: INR 1.07 (0.8-3.0); PROTIME 12.1 SECONDS (8.83-12.87)
[2018-12-29] MEDS ORDERED: MORPHINE SULFATE 4 MG INJ IV ONE (15:06)
[2018-12-29] MEDS ORDERED: MORPHINE SULFATE 4 MG INJ ONE (15:15)
--- NOTE | 2018-12-29 16:25 | XRAY ---
Indication: Chest pain. Short of breath. Comparison: April 01, 2018. Portable chest again demonstrates normal heart, lungs, and bony thorax.
[2018-12-29 17:01] VITALS: BP 173/88; PULSE 62; O2SAT 98
== END 2018-12-29 17:10 | disposition short-term general hospital (02) ==
LOC: ED 11:45
DX: R07.9 Chest pain, unspecified (principal); I24.9 Acute ischemic heart disease, unspecified
CPT/HCPCS: 36000; 36415; 71045; 80053; 83880; 84484; 85025; 85610; 93005; 93041; 94760; 96374; 96376; 99285; 99291; J2270; A9270-GY

== ENCOUNTER 2019-01-03 06:26 | Emergency (ER) | payer OTHER ==
[2019-01-03] MEDS ORDERED: MORPHINE SULFATE 4 MG INJ IV ONE (06:33)
[2019-01-03] MEDS ORDERED: NITRO-BID 2% UD PACKETS TOP ONE (06:33)
[2019-01-03] MEDS ORDERED: Sodium Chloride 0.9% 1000 ML 1,000 ML IV STA ×3 (06:33→08:15)
[2019-01-03] MEDS ORDERED: Ativan 2 MG/1 ML VIAL IV ONE (06:33)
[2019-01-03] MEDS ORDERED: Sodium Chloride 0.9% 1000 ML 1,000 ML ONE ×3 (06:48→08:13)
[2019-01-03 07:08] LABS: Absolute Neutrophil Ct (ANC) 11.21 (1.4-6.9); BASOPHIL % 0.3 % (0.0-0.4); Basophil (Absolute #) 0.05 (0-0.4); Eosinophil % 1.2 % (0.00-5.0); Eosinophil (Absolute #) 0.21 (0-0.5); Hematocrit 46.7 % (42-50); Hemoglobin 15.9 gm/dl (12.5-18.0); Lymphocyte (Absolute #) 4.18 (1.0-4.6); Lymphocytes % 24.5 % (24.0-44.0); Mean Cell Volume 92.5 fl (78-100); Mean Corpuscular Hemoglobin 31.5 pg (26-32); Mean Platelet Volume 11.2 fl (6-9.5); Monocytes % 8.2 % (0.0-12.0); Neutrophil % 65.8 % (36.0-66.0); Platelet Count 278 K/mm3 (150-450); Red Blood Count 5.05 M/mm3 (4.1-5.6); Red Cell Distribution Width 14.2 % (11.5-14.0); White Blood Count 17.1 K/mm3 (4.0-10.5)
[2019-01-03 07:30] LABS: ALBUMIN 4.9 g/dL (3.5-5.0); ANION GAP 28.2 MEQ/L (5-15); BILIRUBIN,TOTAL 0.6 mg/dL (0.2-1.3); Calcium 10.3 mg/dL (8.4-10.2); Creatinine 1 9.54 mg/dL (0.66-1.25); MAGNESIUM 2.3 mg/dL (1.6-2.3); Potassium 5.2 mmol/L (3.5-5.1); Total Protein 8.7 g/dL (6.3-8.2)
[2019-01-03 07:34] LABS: Erythrocyte Sedimentation Rate 5 mm/hr (0-15)
--- NOTE | 2019-01-03 08:13 | ERPHSYRPT ---
- History of Present Illness Time Seen by Provider: 01/03/19 08:07 Source: patient, family Exam Limitations: no limitations Patient Subjective Stated Complaint: pt c/o neck pain posteriorly, dizziness, urinating blood Triage Nursing Assessment: Pt brought back to rm 6, via wheelchair by . Pt alert and oriented x3, pleasant. Lungs clear, heart tones reg, abd soft with active bs x4 quad, nontender. Pt c/o post neck pain, dizziness and urinating blood (dribbling) this am. Pt only voided x1 yesterday. Pt vomited x1 this am. Physician History: pt c/o neck pain posteriorly, dizziness, urinating blood Mr. Zuniga 53-year-old male with significant past medical history of coronary artery disease, hypertension, diabetes was in the emergency room on November with complaining of chest pain. At that point of time. Patient was transferred to [facility] where patient underwent cardiac catheterization, which did not reveal any significant changes in the previous stent. Patient was discharged home 2 days ago. He was doing all right until yesterday morning. Since he stopped urinating. He also has some blood in his urine, but since last 24 hours. He has not had any urine output at all. He came to the emergency room at around 6:00 today that he was mainly complaining of right sided neck pain, feeling ready weak and dizzy. His blood pressure was found to be 68/40. Patient was denying any chest pain, nausea, vomiting or diarrhea or fever or chills. Timing/Duration: today Associated Symptoms: headaches, malaise, weakness, other, No shortness of breath , No chest pain Allergies/Adverse Reactions: No Known Drug Allergies Allergy (Verified 12/29/18 11:59) Home Medications: Carvedilol 12.5 mg [Coreg 12.5 mg] 25 mg PO HS 12/27/14 [History] Fluoxetine HCl 10 mg [Prozac 10 mg] 10 mg PO HS 12/27/14 [History] Hydrochlorothiazide 12.5 mg PO HS 12/27/14 [History] Lisinopril [Zestril] 30 mg PO HS 12/27/14 [History] Clopidogrel Bisulfate 75 mg [PLAVIX 75 MG Tablet] 75 mg PO DAILY 10/20/18 [History] Aspirin EC 81 mg [Ecotrin 81 mg] 81 mg PO DAILY 12/29/18 [History] Atorvastatin Calcium [Lipitor] 40 mg PO HS 12/29/18 [History] Isosorbide Mononitrate 30 mg [Imdur 30 MG] 30 mg PO DAILY 12/29/18 [History ] Metformin HCl Xr 500 mg [Glucophage XR 500 MG] 500 mg PO DAILY 12/29/18 [ History] Nabumetone 500 mg PO BID 12/29/18 [History] Nitroglycerin 0.4 mg Tablet [Nitrostat 0.4 MG Tablet] 1 tab PO UD PRN [History] Hx Tetanus, Diphtheria Vaccination/Date Given: Yes Hx Influenza Vaccination/Date Given: No Hx Pneumococcal Vaccination/Date Given: No Immunizations Up to Date: Yes - Review of Systems Constitutional: Lethargy, Malaise, Weakness, No Fever, No Chills Eyes: No Symptoms Ears, Nose, & Throat: No Symptoms Respiratory: No Cough, No Dyspnea Cardiac: No Chest Pain, No Edema, No Syncope Abdominal/Gastrointestinal: No Abdominal Pain, No Nausea, No Vomiting, No Diarrhea Genitourinary Symptoms: Hematuria, No Dysuria Musculoskeletal: No Back Pain, No Neck Pain Skin: No Rash Neurological: No Dizziness, No Focal Weakness, No Sensory Changes Psychological: No Symptoms Endocrine: No Symptoms All Other Systems: Reviewed and Negative - Past Medical History Pertinent Past Medical History: Yes Neurological History: No Pertinent History ENT History: No Pertinent History Cardiac History: Hypertension, Myocardial Infarction ([place]) Respiratory History: No Pertinent History Endocrine Medical History: Diabetes Type II Musculoskeletal History: No Pertinent History GI Medical History: Gallbladder Disease History: No Pertinent History Psycho-Social History: Depression Male Reproductive Disorders: No Pertinent History Other Medical History: RESTLESS LEG SYNDROME - Past Surgical History Past Surgical History: Yes Neuro Surgical History: No Pertinent History Cardiac: Cardiac Catheterization, Cardiac Stent Respiratory: No Pertinent History Gastrointestinal: Cholecystectomy Genitourinary: No Pertinent History Musculoskeletal: No Pertinent History Male Surgical History: No Pertinent History Other Surgical History: lymph node removed 25 yrs ago - Social History Smoking Status: Current every day smoker How long have you smoked: 30 yrs Exposure to second hand smoke: Yes Drug Use: none Patient Lives Alone: No - Nursing Vital Signs Nursing Vital Signs: Initial Vital Signs Temperature 97.6 F 01/03/19 06:31 Pulse Rate 65 01/03/19 06:31 Respiratory Rate 18 01/03/19 06:31 Blood Pressure 76/54 01/03/19 06:31 O2 Sat by Pulse Oximetry 97 01/03/19 06:31 Pain Scale Pain Intensity 9 - Physical Exam General Appearance: no apparent distress, alert Eye Exam: PERRL/EOMI, eyes nml inspection Ears, Nose, Throat Exam: normal ENT inspection, TMs normal, pharynx normal, moist mucous membranes Neck Exam: normal inspection, non-tender, supple, full range of motion Respiratory Exam: normal breath sounds, lungs clear, No respiratory distress Cardiovascular Exam: regular rate/rhythm, normal heart sounds, normal peripheral pulses Gastrointestinal/Abdomen Exam: soft, normal bowel sounds, No tenderness, No mass Back Exam: normal inspection, normal range of motion, No CVA tenderness, No vertebral tenderness Extremity Exam: normal inspection, normal range of motion, pelvis stable Neurologic Exam: alert, oriented x 3, cooperative, normal mood/affect, nml cerebellar function, nml station & gait, sensation nml, No motor deficits Skin Exam: normal color, warm, dry, No rash Lymphatic Exam: No adenopathy SpO2: 97 - Course Nursing assessment & vital signs reviewed: Yes EKG Interpreted by Me: Sinus Rhythm, NORMAL ST-T Rhythm Strip: Normal Sinus Rhythm - Radiology Exams Chest X-ray Interpretation: Reviewed by me, Negative - CT Exams Head CT Interpretation: Negative, Tele-radiologist Report Ordered Tests: Active Orders 24 hr Category Date Time Status Computer Forensics Examiner STAT Care 01/03/19 06:34 Active EKG-ER Only STAT Care 01/03/19 06:33 Active IV Insertion STAT Care 01/03/19 06:33 Active Oxygen-ED Only Nasal Cannula 2 lpm Care 01/03/19 06:33 Active HEAD WITHOUT CONTRAST [CT] Stat Exams 01/03/19 06:36 Taken CBC W DIFF Stat Lab 01/03/19 06:48 Completed CK-Creatinine Phosphokinase Stat Lab 01/03/19 06:48 Completed CMP Stat Lab 01/03/19 06:48 Completed D-DIMER QUANTITATION Stat Lab 01/03/19 06:48 Completed Erythrocyte Sedimentation Rate Stat Lab 01/03/19 06:48 Completed Lactic Acid Stat Lab 01/03/19 06:56 Completed MAGNESIUM Stat Lab 01/03/19 06:48 Completed NT PRO BNP Stat Lab 01/03/19 06:48 Completed TROPONIN Q3H Lab 01/03/19 06:48 Completed TROPONIN Q3H Lab 01/03/19 09:45 Ordered TROPONIN Q3H Lab 01/03/19 12:45 Ordered TROPONIN Q3H Lab 01/03/19 15:45 Ordered TROPONIN Q3H Lab 01/03/19 18:45 Ordered UA W/RFX UR CULTURE Stat Lab 01/03/19 06:34 Uncollected Urine Triage Profile Stat Lab 01/03/19 06:34 Uncollected Medication Summary Generic Name Dose Route Start Last Admin Trade Name Freq PRN Reason Stop Dose Admin Sodium Chloride 1,000 mls @ 999 mls/hr 01/03/19 07:17 01/03/19 07:50 Sodium Chloride 0.9% 1000 Ml IV 01/03/19 08:17 Infused .Q1H1M STA Infusion Discontinued Medications Generic Name Dose Route Start Last Admin Trade Name Freq PRN Reason Stop Dose Admin Sodium Chloride Confirm 01/03/19 06:48 Sodium Chloride 0.9% 1000 Ml Administered 01/03/19 06:49 Dose 1,000 mls @ ud .ROUTE .STK-MED ONE Sodium Chloride 1,000 mls @ 999 mls/hr 01/03/19 06:33 01/03/19 07:13 Sodium Chloride 0.9% 1000 Ml IV 01/03/19 07:33 999 mls/hr .Q1H1M STA Administration Sodium Chloride Confirm 01/03/19 07:13 Sodium Chloride 0.9% 1000 Ml Administered 01/03/19 07:14 Dose 1,000 mls @ ud .ROUTE .STK-MED ONE Lorazepam 1 mg 01/03/19 06:33 Ativan 2 Mg/1 Ml Vial IV 01/03/19 06:34 STAT ONE Morphine Sulfate 4 mg 01/03/19 06:33 Morphine Sulfate 4 Mg Inj IV 01/03/19 06:34 STAT ONE Nitroglycerin 1 gm 01/03/19 06:33 Nitro-Bid 2% Ud Packets TOP 01/03/19 06:34 STAT ONE Lab/Rad Data: Laboratory Result Diagrams 01/03/19 06:48 01/03/19 06:48 Laboratory Results 01/03/19 01/03/19 01/03/19 Range/Units 06:56 06:48 06:48 WBC (4.0-10.5) K/mm3 RBC (4.1-5.6) M/mm3 Hgb (12.5-18.0) gm/dl Hct (42-50) % MCV (78-100) fl MCH (26-32) pg MCHC (32-36) g/dl RDW (11.5-14.0) % Plt Count (150-450) K/mm3 MPV (6-9.5) fl Gran % (36.0-66.0) % Eos # (Auto) (0-0.5) Absolute Lymphs (auto) (1.0-4.6) Absolute Monos (auto) (0.0-1.3) Lymphocytes % (24.0-44.0) % Monocytes % (0.0-12.0) % Eosinophils % (0.00-5.0) % Basophils % (0.0-0.4) % Absolute Granulocytes (1.4-6.9) Basophils # (0-0.4) ESR (0-15) mm/hr D-Dimer 326 (215-500) ng/mL Sodium (137-145) mmol/L Potassium (3.5-5.1) mmol/L Chloride (98-107) mmol/L Carbon Dioxide (22-30) mmol/L Anion Gap (5-15) MEQ/L BUN (9-20) mg/dL Creatinine (0.66-1.25) mg/dL Estimated GFR ML/MIN Glucose (74-106) mg/dL Lactic Acid 1.4 (0.4-2.0) Calcium (8.4-10.2) mg/dL Magnesium (1.6-2.3) mg/dL Total Bilirubin (0.2-1.3) mg/dL AST (17-59) U/L ALT (0-50) U/L Alkaline Phosphatase (38-126) U/L Creatine Kinase (55-170) U/L Troponin I 0.020 (0.000-0.034) ng/mL NT-Pro-B Natriuret Pep (0-900) pg/mL Serum Total Protein (6.3-8.2) g/dL Albumin (3.5-5.0) g/dL 01/03/19 01/03/19 Range/Units 06:48 06:48 WBC 17.1 H (4.0-10.5) K/mm3 RBC 5.05 (4.1-5.6) M/mm3 Hgb 15.9 (12.5-18.0) gm/dl Hct 46.7 (42-50) % MCV 92.5 (78-100) fl MCH 31.5 (26-32) pg MCHC 34.0 (32-36) g/dl RDW 14.2 H (11.5-14.0) % Plt Count 278 (150-450) K/mm3 MPV 11.2 H (6-9.5) fl Gran % 65.8 (36.0-66.0) % Eos # (Auto) 0.21 (0-0.5) Absolute Lymphs (auto) 4.18 (1.0-4.6) Absolute Monos (auto) 1.40 H (0.0-1.3) Lymphocytes % 24.5 (24.0-44.0) % Monocytes % 8.2 (0.0-12.0) % Eosinophils % 1.2 (0.00-5.0) % Basophils % 0.3 (0.0-0.4) % Absolute Granulocytes 11.21 H (1.4-6.9) Basophils # 0.05 (0-0.4) ESR 5 (0-15) mm/hr D-Dimer (215-500) ng/mL Sodium 140 (137-145) mmol/L Potassium 5.2 H (3.5-5.1) mmol/L Chloride 98 (98-107) mmol/L Carbon Dioxide 19 L (22-30) mmol/L Anion Gap 28.2 H (5-15) MEQ/L BUN 61 H (9-20) mg/dL Creatinine 9.54 H (0.66-1.25) mg/dL Estimated GFR 6.2 ML/MIN Glucose 194 H (74-106) mg/dL Lactic Acid (0.4-2.0) Calcium 10.3 H (8.4-10.2) mg/dL Magnesium 2.3 (1.6-2.3) mg/dL Total Bilirubin 0.60 (0.2-1.3) mg/dL AST 36 (17-59) U/L ALT 32 (0-50) U/L Alkaline Phosphatase 119 (38-126) U/L Creatine Kinase 327 H (55-170) U/L Troponin I (0.000-0.034) ng/mL NT-Pro-B Natriuret Pep 331 (0-900) pg/mL Serum Total Protein 8.7 H (6.3-8.2) g/dL Albumin 4.9 (3.5-5.0) g/dL - Progress Progress: unchanged Discussed with Dr.: Other (Dr Jeramie Crow (nephrology), ER Physician at [facility] ER) Counseled pt/family regarding: lab results, diagnosis, need for follow-up, rad results - Departure Departure Disposition: Transfer ([facility] ER) Clinical Impression: Acute renal failure due to procedure, Acute renal failure due to contrast agent Condition: Fair Critical Care Time: Yes Critical Care Time(excluding separately billable procedures): Critical 30-74 mins Referrals: PIYUSH PLAZA MD [Primary Care Provider] -
[2019-01-03 08:23] VITALS: O2SAT 98
[2019-01-03 08:37] VITALS: BP 101/62; PULSE 64
--- NOTE | 2019-01-03 20:15 | XRAY ---
Indication: Headache, dizziness, and neck pain. Low blood pressure. Multiple contiguous axial images obtained through the abdomen without contrast. Comparison: None Normal appearing brain parenchyma, ventricles, and bony calvarium. Visualized paranasal sinuses and mastoid air cells are clear. Impression: Normal CT head without contrast exam. Comment: Preliminary interpretation was made by [facility]. No discrepancy. CTDI 68.65
== END 2019-01-03 09:16 | disposition short-term general hospital (02) ==
LOC: ED 06:26
DX: N99.0 Postprocedural (acute) (chronic) kidney failure (principal); N17.9 Acute kidney failure, unspecified
CPT/HCPCS: 36000; 36415; 70450; 80053; 82550; 83605; 83735; 83880; 84484; 85025; 85379; 85652; 93005; 93041; 96360; 96361; 99285; 99291

== ENCOUNTER 2019-04-14 07:34 | Emergency (ER) | payer OTHER ==
[2019-04-14] MEDS ORDERED: Hydromorphone 1 mg/ml Ampule IM ONE (08:06)
[2019-04-14] MEDS ORDERED: ZOFRAN ODT 4 MG PO ONE (08:06)
--- NOTE | 2019-04-14 08:06 | ERPHSYRPT ---
- History of Present Illness Time Seen by Provider: 04/14/19 07:55 Source: patient, family Exam Limitations: no limitations Patient Subjective Stated Complaint: Pt stated that he fell on his left arm about 2 weeks ago on concrete, had an x-ray of the shoulder that he states shows arthritis, he reports that the pain is down to just above his elbow and his elbow and his left hand is swollen and can't remove his ring Triage Nursing Assessment: Pt brought into the ER by his , hypertensive, holding left arm, pulses normal, cap refill normal, rates pain 7/10, denies hitting head at the time of the accident Physician History: 53 y/o right handed white male fell onto left shoulder approx 2 weeks ago. plain xrays revealed no acute fx. pts pain and swelling has persisted left upper ext shoulder to left elbow. Occurred: days ago (14 ) Method of Injury: fell Quality: constant, aching, throbbing Severity of Pain-Max: moderate Severity of Pain-Current: moderate Extremities Pain Location: shoulder: left, arm: left, elbow: left Modifying Factors: Improves With: immobilization (improves), movement Allergies/Adverse Reactions: No Known Drug Allergies Allergy (Verified 04/14/19 07:53) Home Medications: Carvedilol 12.5 mg [Coreg 12.5 mg] 25 mg PO BID 12/27/14 [History] Fluoxetine HCl 10 mg [Prozac 10 mg] 10 mg PO HS 12/27/14 [History] Hydrochlorothiazide 12.5 mg PO HS 12/27/14 [History] lisinopriL [Zestril] 30 mg PO HS 12/27/14 [History] Clopidogrel Bisulfate 75 mg [PLAVIX 75 MG Tablet] 75 mg PO DAILY 10/20/18 [History] Aspirin EC 81 mg [Ecotrin 81 mg] 81 mg PO DAILY 12/29/18 [History] Atorvastatin Calcium [Lipitor] 40 mg PO HS 12/29/18 [History] Isosorbide Mononitrate 30 mg [Imdur 30 MG] 30 mg PO DAILY 12/29/18 [History ] Metformin HCl Xr 500 mg [Glucophage XR 500 MG] 500 mg PO DAILY 12/29/18 [ History] Nabumetone 500 mg PO BID 12/29/18 [History] Nitroglycerin 0.4 mg Tablet [Nitrostat 0.4 MG Tablet] 1 tab PO UD PRN [History] Meloxicam 7.5 mg [Mobic 7.5 MG] 7.5 mg PO BID 04/14/19 [History] Tamsulosin HCl 0.4 mg [Flomax 0.4 MG] 0.4 mg PO DAILY 04/14/19 [History] Hx Tetanus, Diphtheria Vaccination/Date Given: Yes Hx Influenza Vaccination/Date Given: No Hx Pneumococcal Vaccination/Date Given: No - Review of Systems Constitutional: No Symptoms Eyes: No Symptoms Ears, Nose, & Throat: No Symptoms Respiratory: No Symptoms Cardiac: No Symptoms Abdominal/Gastrointestinal: No Symptoms Genitourinary Symptoms: No Symptoms Musculoskeletal: Fall, Injury (left shoulder) Skin: No Symptoms Neurological: No Symptoms Psychological: No Symptoms Endocrine: No Symptoms Hematologic/Lymphatic: No Symptoms Immunological/Allergic: No Symptoms All Other Systems: Reviewed and Negative - Past Medical History Pertinent Past Medical History: Yes Neurological History: No Pertinent History ENT History: No Pertinent History Cardiac History: Hypertension, Myocardial Infarction ([place]) Respiratory History: No Pertinent History Endocrine Medical History: Diabetes Type II Musculoskeletal History: No Pertinent History GI Medical History: Gallbladder Disease History: No Pertinent History Psycho-Social History: Depression Male Reproductive Disorders: No Pertinent History Other Medical History: RESTLESS LEG SYNDROME - Past Surgical History Past Surgical History: Yes Neuro Surgical History: No Pertinent History Cardiac: Cardiac Catheterization, Cardiac Stent Respiratory: No Pertinent History Gastrointestinal: Cholecystectomy Genitourinary: No Pertinent History Musculoskeletal: No Pertinent History Male Surgical History: No Pertinent History Other Surgical History: lymph node removed 25 yrs ago - Social History Smoking Status: Current every day smoker How long have you smoked: 30 yrs Exposure to second hand smoke: Yes Drug Use: none Patient Lives Alone: No - Nursing Vital Signs Nursing Vital Signs: Initial Vital Signs Temperature 98.1 F 04/14/19 07:39 Pulse Rate 75 04/14/19 07:39 Blood Pressure 158/103 04/14/19 07:39 O2 Sat by Pulse Oximetry 99 04/14/19 07:39 Pain Scale Pain Intensity 7 - Physical Exam General Appearance: mild distress, alert, anxiety Eyes, Ears, Nose, Throat Exam: normal ENT inspection, moist mucous membranes Neck Exam: normal inspection, non-tender, supple, full range of motion Cardiovascular/Respiratory Exam: chest non-tender, No normal breath sounds, No regular rate/rhythm, No heart sounds normal Abdominal Exam: non-tender Back Exam: normal inspection, normal range of motion, No CVA tenderness, No vertebral tenderness Shoulder Exam: normal inspection, limited ROM Elbow/Forearm Exam: normal inspection, bone tenderness, limited ROM, pain, soft tissue tenderness, swelling Wrist Exam: normal inspection, non-tender, no evidence of injury, normal ROM Hand Exam: non-tender, no evidence of injury, normal ROM, swelling Neuro/Tendon Exam: normal sensation, normal motor functions, normal tendon functions Mental Status Exam: alert, oriented x 3, cooperative Skin Exam: normal color, warm, dry SpO2 Interpretation: normal SpO2: 99 O2 Delivery: Room Air Ordered Tests: Active Orders 24 hr Category Date Time Status UPPER EXTREMITY W/O CONTRAST [CT] Stat Exams 04/14/19 08:11 Completed Medication Summary Discontinued Medications Generic Name Dose Route Start Last Admin Trade Name Angie PRN Reason Stop Dose Admin Hydromorphone HCl 1 mg 04/14/19 08:06 04/14/19 08:18 Hydromorphone 1 Mg/Ml Ampule IM 04/14/19 08:07 1 mg STAT ONE Administration Hydromorphone HCl Confirm 04/14/19 08:17 Hydromorphone 1 Mg/Ml Ampule Administered 04/14/19 08:18 Dose 1 mg .ROUTE .STK-MED ONE Ondansetron HCl 4 mg 04/14/19 08:06 04/14/19 08:19 Zofran Odt 4 Mg PO 04/14/19 08:07 4 mg STAT ONE Administration Ondansetron HCl Confirm 04/14/19 08:16 Zofran Odt 4 Mg Administered 04/14/19 08:17 Dose 4 mg .ROUTE .STK-MED ONE - Progress Progress: improved, pain not gone completely, re-examined Progress Note: 04/14/19 10:02 ct left shoulder and humerus negative for acute fx. i called and spoke with jose fire protection equipment technician regarding left elbow ct description. left elbow also negative for acute fx or disclocation - Departure Departure Disposition: Home Clinical Impression: Left upper limb pain, Left upper extremity swelling Condition: Stable Critical Care Time: No Referrals: PIYUSH PLAZA MD [Primary Care Provider] - [facility] [id number] [id number] Additional Instructions: follow up with [facility] for persistent symptoms Prescriptions: Carisoprodol 350 mg [Soma 350 mg] 350 mg PO Q8H PRN PRN #10 tablet PRN Reason: Muscle Spasms Oxycodone HCl/Acetaminophen [Percocet 5-325 mg Tablet] 1 each PO Q8H PRN PRN #9 tablet MDD 3 PRN Reason: Pain
[2019-04-14] MEDS ORDERED: ZOFRAN ODT 4 MG ONE (08:16)
[2019-04-14] MEDS ORDERED: Hydromorphone 1 mg/ml Ampule ONE (08:17)
--- NOTE | 2019-04-14 09:32 | XRAY ---
Indication: Left arm pain following fall one week ago. Multiple contiguous axial images obtained through the left humerus. Two-dimensional sagittal and coronal reformatted images obtained. Comparison: Left shoulder radiograph April 06, 2019. No acute fracture, dislocation, or osseous destructive process. Moderate left shoulder degenerative arthropathy including humeral head subcortical cysts grossly similar in appearance to recent radiograph. No large effusion. Visualized noncontrasted soft tissues are unremarkable. Impression: Left shoulder degenerative arthropathy. Remaining CT left humerus negative.
[2019-04-14 10:06] VITALS: BP 156/88; PULSE 68
[2019-04-14 10:09] VITALS: O2SAT 99
== END 2019-04-14 10:15 | disposition home or self-care (01) ==
LOC: ED 07:34
DX: M79.622 Pain in left upper arm (principal); M79.89 Other specified soft tissue disorders; W19.XXXA Unspecified fall, initial encounter; Z79.899 Other long term (current) drug therapy; I10 Essential (primary) hypertension; I25.2 Old myocardial infarction; E11.9 Type 2 diabetes mellitus without complications; Z79.4 Long term (current) use of insulin; F32.9 Major depressive disorder, single episode, unspecified
CPT/HCPCS: 73200; 96372; 99284; J1170; Q0162

== ENCOUNTER 2020-01-24 19:22 | Emergency (ER) | payer OTHER ==
[2020-01-24] MEDS ORDERED: SUBLIMAZE 100 MCG/2 ML IV ONE (19:42)
[2020-01-24] MEDS ORDERED: Zofran 4 MG/2 ML VIAL IV ONE (19:42)
--- NOTE | 2020-01-24 19:42 | ERPHSYRPT ---
- History of Present Illness Time Seen by Provider: 01/24/20 19:35 Historian: patient Exam Limitations: no limitations Physician History: For the past 7 days pt has had abdominal bloating, decreased appetite and generalized cramping/sharp pain up to 7/10 in severity. Pt also reports occasional black stools & bright red blood in stool in the past 7 days. Pt states he vomited 4 times total 3 & 4 days ago. LBM was today & wnl. Pt denies chest pain, fever, chills, headache. Allergies/Adverse Reactions: No Known Drug Allergies Allergy (Verified 01/24/20 19:27) Home Medications: Fluoxetine HCl 10 mg [Prozac 10 mg] 10 mg PO HS 12/27/14 [History] Hydrochlorothiazide 12.5 mg PO HS 12/27/14 [History] lisinopriL [Zestril] 15 mg PO HS 12/27/14 [History] Clopidogrel Bisulfate 75 mg [PLAVIX 75 MG Tablet] 75 mg PO DAILY 10/20/18 [History] Atorvastatin Calcium [Lipitor] 40 mg PO HS 12/29/18 [History] Isosorbide Mononitrate 30 mg [Imdur 30 MG] 30 mg PO DAILY 12/29/18 [History] Metformin HCl Xr 500 mg [Glucophage XR 500 MG] 500 mg PO DAILY 12/29/18 [History] Nabumetone 500 mg PO BID 12/29/18 [History] Nitroglycerin 0.4 mg Tablet [Nitrostat 0.4 MG Tablet] 1 tab PO UD PRN 12/29/18 [History] Meloxicam 7.5 mg [Mobic 7.5 MG] 7.5 mg PO BID 04/14/19 [History] Tamsulosin HCl 0.4 mg [Flomax 0.4 MG] 0.4 mg PO DAILY 04/14/19 [History] Apixaban [Eliquis] 5 mg PO DAILY 01/24/20 [History] Buspirone HCl [Buspar] 10 mg PO 01/24/20 [History] Gabapentin 600 mg PO DAILY 01/24/20 [History] Sotalol HCl [Sotalol] 120 mg PO BID 10/25/20 [History] Hx Tetanus, Diphtheria Vaccination/Date Given: Yes Hx Influenza Vaccination/Date Given: No Hx Pneumococcal Vaccination/Date Given: No Travel Risk - International Travel Have you traveled outside of the country in past 3 weeks: No - Coronavirus Screening Are you exhibiting any of the following symptoms?: Yes Symptoms: Vomiting/Diarrhea Close contact with a COVID-19 positive Pt in past 14-21 Days: No - Review of Systems Constitutional: No Fever, No Chills Cardiac: No Chest Pain Abdominal/Gastrointestinal: Abdominal Pain, Nausea, Vomiting, Appetite Changes (decreased in the past week.), No Diarrhea Skin: No Rash Neurological: No Headache All Other Systems: Reviewed and Negative - Past Medical History Pertinent Past Medical History: Yes Neurological History: No Pertinent History ENT History: No Pertinent History Cardiac History: Myocardial Infarction ([place]), Hypertension Respiratory History: No Pertinent History Endocrine Medical History: Diabetes Type II Musculoskeletal History: No Pertinent History GI Medical History: Gallbladder Disease History: No Pertinent History Psycho-Social History: Depression Male Reproductive Disorders: No Pertinent History Other Medical History: RESTLESS LEG SYNDROME - Past Surgical History Past Surgical History: Yes Neuro Surgical History: No Pertinent History Cardiac: Cardiac Stent, Cardiac Catheterization Respiratory: No Pertinent History Gastrointestinal: Cholecystectomy Genitourinary: No Pertinent History Musculoskeletal: No Pertinent History Male Surgical History: No Pertinent History Other Surgical History: lymph node removed 25 yrs ago - Social History Smoking Status: Current every day smoker How long have you smoked: 30 yrs Exposure to second hand smoke: Yes Drug Use: none Patient Lives Alone: No - Nursing Vital Signs Nursing Vital Signs: Initial Vital Signs Pulse Rate 69 01/24/20 19:38 Respiratory Rate 20 01/24/20 19:38 Blood Pressure 193/103 01/24/20 19:38 O2 Sat by Pulse Oximetry 99 01/24/20 19:38 Pain Scale Pain Intensity 4 - Physical Exam General Appearance: alert Eye Exam: PERRL/EOMI Ears, Nose, Throat Exam: pharynx normal Neck Exam: normal inspection Respiratory Exam: lungs clear Cardiovascular Exam: normal heart sounds Gastrointestinal/Abdomen Exam: distention (mild), other (B.S. mildly hyperactive & normotonic.) Rectal Exam: normal rectal tone Back Exam: other (fair rom) Extremity Exam: No pedal edema Neurologic Exam: alert, cooperative Skin Exam: warm, dry SpO2 Interpretation: normal SpO2: 99 O2 Delivery: Room Air - Course Nursing assessment & vital signs reviewed: Yes - CT Exams Abdomen/Pelvis CT Interpretation: Tele-radiologist Report (diverticulosis without diverticulitis; no small bowel obstruction; there is distension of the stomach which contains fluid and ingested material. no obstructing lesions seen.) Ordered Tests: Active Orders 24 hr Category Date Time Status IV Insertion STAT Care 01/24/20 19:42 Active ABDOMEN AND PELVIS W/0 CONTRAS [CT] Stat Exams 01/24/20 19:43 Taken AMYLASE Stat Lab 01/24/20 20:11 Completed CBC W DIFF Stat Lab 01/24/20 20:11 Completed CMP Stat Lab 01/24/20 20:11 Completed CULTURE,URINE Stat Lab 01/24/20 20:39 Received FECAL OCCULT BLOOD - SCREENING Stat Lab 01/24/20 20:11 Completed LIPASE Stat Lab 01/24/20 20:11 Completed MAGNESIUM Stat Lab 01/24/20 20:11 Completed UA W/RFX UR CULTURE Stat Lab 01/24/20 20:39 Completed Medication Summary Generic Name Dose Route Start Last Admin Trade Name Freq PRN Reason Stop Dose Admin Sodium Chloride 1,000 mls @ 100 mls/hr 01/24/20 19:45 01/24/20 20:13 Sodium Chloride 0.9% 1000 Ml IV 02/23/20 19:44 100 mls/hr .Q10H MATI Administration Discontinued Medications Generic Name Dose Route Start Last Admin Trade Name Freq PRN Reason Stop Dose Admin Fentanyl Citrate 50 mcg 01/24/20 19:42 01/24/20 20:13 Sublimaze 100 Mcg/2 Ml IV 01/24/20 19:43 50 mcg STAT ONE Administration Fentanyl Citrate Confirm 01/24/20 20:10 Sublimaze 100 Mcg/2 Ml Administered 01/24/20 20:11 Dose 100 mcg .ROUTE .STK-MED ONE Ondansetron HCl 4 mg 01/24/20 19:42 01/24/20 20:13 Zofran 4 Mg/2 Ml Vial IV 01/24/20 19:43 4 mg STAT ONE Administration Ondansetron HCl Confirm 01/24/20 20:10 Zofran 4 Mg/2 Ml Vial Administered 01/24/20 20:11 Dose 4 mg .ROUTE .STK-MED ONE Lab/Rad Data: Laboratory Result Diagrams 01/24/20 20:11 01/24/20 20:11 Laboratory Results 01/24/20 01/24/20 01/24/20 Range/Units 20:39 20:11 20:11 WBC (4.0-10.5) K/mm3 RBC (4.1-5.6) M/mm3 Hgb (12.5-18.0) gm/dl Hct (42-50) % MCV (78-100) fl MCH (26-32) pg MCHC (32-36) g/dl RDW (11.5-14.0) % Plt Count (150-450) K/mm3 MPV (7.5-11.0) fl Gran % (36.0-66.0) % Eos # (Auto) (0-0.5) Absolute Lymphs (auto) (1.0-4.6) Absolute Monos (auto) (0.0-1.3) Lymphocytes % (24.0-44.0) % Monocytes % (0.0-12.0) % Eosinophils % (0.00-5.0) % Basophils % (0.0-0.4) % Absolute Granulocytes (1.4-6.9) Basophils # (0-0.4) Sodium (137-145) mmol/L Potassium (3.5-5.1) mmol/L Chloride (98-107) mmol/L Carbon Dioxide (22-30) mmol/L Anion Gap (5-15) MEQ/L BUN (9-20) mg/dL Creatinine (0.66-1.25) mg/dL Estimated GFR ML/MIN Glucose (74-106) mg/dL Calcium (8.4-10.2) mg/dL Magnesium 1.8 (1.6-2.3) mg/dL Total Bilirubin (0.2-1.3) mg/dL AST (17-59) U/L ALT (0-50) U/L Alkaline Phosphatase (38-126) U/L Serum Total Protein (6.3-8.2) g/dL Albumin (3.5-5.0) g/dL Amylase (30-110) U/L Lipase (23-300) U/L Urine Color YELLOW (YELLOW) Urine Appearance CLEAR (CLEAR) Urine pH 5.0 (5-6) Ur Specific [place] 1.021 (1.005-1.025) Urine Protein 30 (Negative) Urine Ketones NEGATIVE (NEGATIVE) Urine Blood MODERATE (0-5) Navjot/ul Urine Nitrite NEGATIVE (NEGATIVE) Urine Bilirubin NEGATIVE (NEGATIVE) Urine Urobilinogen NEGATIVE (0-1) mg/dL Ur Leukocyte Esterase NEGATIVE (NEGATIVE) Urine WBC (Auto) NONE (0-5) /HPF Urine RBC (Auto) 6-10 (0-2) /HPF U Epithel Cells (Auto) NONE (FEW) /HPF Urine Bacteria (Auto) NONE (NEGATIVE) /HPF Urine Mucus (Auto) SLIGHT (NEGATIVE) /HPF Urine Culture Reflexed YES (NO) Urine Glucose NEGATIVE (NEGATIVE) mg/dL Stool Occult Blood POSITIVE A (NEGATIVE) 01/24/20 01/24/20 Range/Units 20:11 20:11 WBC 10.3 (4.0-10.5) K/mm3 RBC 4.85 (4.1-5.6) M/mm3 Hgb 15.1 (12.5-18.0) gm/dl Hct 45.7 (42-50) % MCV 94.2 (78-100) fl MCH 31.1 (26-32) pg MCHC 33.0 (32-36) g/dl RDW 13.4 (11.5-14.0) % Plt Count 171 (150-450) K/mm3 MPV 12.0 H (7.5-11.0) fl Gran % 59.4 (36.0-66.0) % Eos # (Auto) 0.30 (0-0.5) Absolute Lymphs (auto) 3.20 (1.0-4.6) Absolute Monos (auto) 0.62 (0.0-1.3) Lymphocytes % 31.1 (24.0-44.0) % Monocytes % 6.0 (0.0-12.0) % Eosinophils % 2.9 (0.00-5.0) % Basophils % 0.6 (0.0-0.4) % Absolute Granulocytes 6.10 (1.4-6.9) Basophils # 0.06 (0-0.4) Sodium 139 (137-145) mmol/L Potassium 4.1 (3.5-5.1) mmol/L Chloride 107 (98-107) mmol/L Carbon Dioxide 27 (22-30) mmol/L Anion Gap 8.7 (5-15) MEQ/L BUN 17 (9-20) mg/dL Creatinine 1.41 H (0.66-1.25) mg/dL Estimated GFR 56.1 ML/MIN Glucose 154 H (74-106) mg/dL Calcium 9.4 (8.4-10.2) mg/dL Magnesium (1.6-2.3) mg/dL Total Bilirubin 0.40 (0.2-1.3) mg/dL AST 26 (17-59) U/L ALT 26 (0-50) U/L Alkaline Phosphatase 127 H (38-126) U/L Serum Total Protein 7.2 (6.3-8.2) g/dL Albumin 4.1 (3.5-5.0) g/dL Amylase 83 (30-110) U/L Lipase 98 (23-300) U/L Urine Color (YELLOW) Urine Appearance (CLEAR) Urine pH (5-6) Ur Specific [place] (1.005-1.025) Urine Protein (Negative) Urine Ketones (NEGATIVE) Urine Blood (0-5) Navjot/ul Urine Nitrite (NEGATIVE) Urine Bilirubin (NEGATIVE) Urine Urobilinogen (0-1) mg/dL Ur Leukocyte Esterase (NEGATIVE) Urine WBC (Auto) (0-5) /HPF Urine RBC (Auto) (0-2) /HPF U Epithel Cells (Auto) (FEW) /HPF Urine Bacteria (Auto) (NEGATIVE) /HPF Urine Mucus (Auto) (NEGATIVE) /HPF Urine Culture Reflexed (NO) Urine Glucose (NEGATIVE) mg/dL Stool Occult Blood (NEGATIVE) - Progress Progress: unchanged Discussed with DrMichael: Freddie Counseled pt/family regarding: lab results, need for follow-up, rad results - Departure Departure Disposition: Home Clinical Impression: Abdominal pain, Vomiting, Nausea Condition: Stable Critical Care Time: No Referrals: PIYUSH PLAZA MD [Primary Care Provider] - Instructions: Acute Abdomen (Belly Pain), Adult (DC) Additional Instructions: Follow up with Dr. Plaza tomorrow. Clear liquids for the next 24 hours. Forms: Work/School Release Form Prescriptions: Ondansetron ODT 4 MG [Zofran Odt 4 mg] 4 mg PO Q6H PRN PRN #10 tab.rapdis PRN Reason: Nausea/Vomiting
[2020-01-24] MEDS ORDERED: Sodium Chloride 0.9% 1000 ML 1,000 ML IV SCH (19:45)
[2020-01-24] MEDS ORDERED: Zofran 4 MG/2 ML VIAL ONE (20:10)
[2020-01-24] MEDS ORDERED: SUBLIMAZE 100 MCG/2 ML ONE (20:10)
[2020-01-24] MEDS ORDERED: Sodium Chloride 0.9% 1000 ML 1,000 ML ONE (20:11)
[2020-01-24 20:21] LABS: BASOPHIL % 0.6 % (0.0-0.4); Basophil (Absolute #) 0.06 (0-0.4); Eosinophil % 2.9 % (0.00-5.0); Hematocrit 45.7 % (42-50); Hemoglobin 15.1 gm/dl (12.5-18.0); Lymphocytes % 31.1 % (24.0-44.0); Mean Cell Volume 94.2 fl (78-100); Mean Corpuscular Hemoglobin 31.1 pg (26-32); Monocyte (Absolute #) 0.62 (0.0-1.3); Neutrophil % 59.4 % (36.0-66.0); Platelet Count 171 K/mm3 (150-450); Red Blood Count 4.85 M/mm3 (4.1-5.6); Red Cell Distribution Width 13.4 % (11.5-14.0); White Blood Count 10.3 K/mm3 (4.0-10.5)
[2020-01-24 20:26] LABS: ALBUMIN 4.1 g/dL (3.5-5.0); ANION GAP 8.7 MEQ/L (5-15); BILIRUBIN,TOTAL 0.4 mg/dL (0.2-1.3); Calcium 9.4 mg/dL (8.4-10.2); Creatinine 1 1.41 mg/dL (0.66-1.25); EST GLOMERULAR FILTRATION RATE 56.1 ML/MIN; Potassium 4.1 mmol/L (3.5-5.1); Total Protein 7.2 g/dL (6.3-8.2)
[2020-01-24 21:03] LABS: Appearance CLEAR (CLEAR); Bilirubin NEGATIVE (NEGATIVE); Blood MODERATE Ery/ul (0-5); Glucose NEGATIVE (NEGATIVE); Ketones NEGATIVE (NEGATIVE); Leukocyte Esterase NEGATIVE (NEGATIVE); Mucus SLIGHT /HPF (NEGATIVE); Nitrite NEGATIVE (NEGATIVE); Protein,Urine Dip 30 (Negative); Specific Gravity 1.021 (1.005-1.025); Urobilinogen NEGATIVE mg/dL (0-1)
[2020-01-24 21:15] VITALS: BP 166/98
[2020-01-24 21:40] VITALS: PULSE 95; O2SAT 98
--- NOTE | 2020-01-25 08:48 | XRAY ---
Indication: Abdomen pain, nausea, and vomiting. Multiple contiguous axial images obtained through the abdomen and pelvis without contrast as ordered. Comparison: December 24, 2016. Lung bases remain clear again with incidental right lower lobe calcified granuloma. Heart is not enlarged. Stomach is markedly distended with food/fluid. Noncontrasted stomach and bowel loops appear nonobstructed. Normal appendix. Stable scattered descending/sigmoid diverticulosis, fatty liver, and cholecystectomy. No free fluid/air. Remaining liver, pancreas, spleen, adrenal glands, kidneys, ureters, and bladder appear unremarkable for noncontrast exam. Stable mild aortoiliac calcifications without AAA. Osseous structures intact again with mild/moderate degenerative changes throughout the spine. Impression: 1. Stable colonic diverticulosis and fatty liver. 2. Remaining CT abdomen/pelvis without contrast exam is negative. Comment: Preliminary interpretation was made by [facility]. No critical discrepancy.
== END 2020-01-24 21:43 | disposition home or self-care (01) ==
LOC: ED 19:22
DX: R10.9 Unspecified abdominal pain (principal); R11.2 Nausea with vomiting, unspecified; Z79.899 Other long term (current) drug therapy; I25.2 Old myocardial infarction; E11.9 Type 2 diabetes mellitus without complications
CPT/HCPCS: 36000; 36415; 74176; 80053; 81001; 82150; 83690; 83735; 85025; 87086; 96374; 96375; 99284; G0328; 82274; J2405; J3010

== ENCOUNTER 2021-10-13 13:52 | Emergency (ER) | payer BC, OTHER ==
--- NOTE | 2021-10-13 14:01 | ERPHSYRPT ---
- History of Present Illness Time Seen by Provider: 10/13/21 14:01 Source: patient Exam Limitations: no limitations Physician History: This is a right-handed male patient of Dr. Plaza who suffered a direct blow to the dorsum of the right hand prior to arrival while at work. A anna at work slipped and landed on the patient's right hand. Patient arrives with full movements of his right hand but it is swollen on the dorsal aspect. Patient has history of hypertension, diabetes, prostate issues, elevated cholesterol and is on anticoagulation therapy. Occurred: just prior to arrival, other Method of Injury: direct blow Quality: constant, aching, throbbing Severity of Pain-Max: moderate Severity of Pain-Current: moderate Extremities Pain Location: hand: right (Dorsal aspect) Modifying Factors: Improves With: movement Associated Symptoms: none Allergies/Adverse Reactions: No Known Drug Allergies Allergy (Verified 10/13/21 14:20) Home Medications: Fluoxetine HCl 10 mg [Prozac 10 mg] 10 mg PO HS 12/27/14 [History] hydroCHLOROthiazide [Hydrochlorothiazide] 12.5 mg PO HS 12/27/14 [History] lisinopriL [Zestril] 15 mg PO HS 12/27/14 [History] Clopidogrel Bisulfate [PLAVIX 75 MG Tablet] 75 mg PO DAILY 10/20/18 [History] Atorvastatin Calcium [Lipitor] 40 mg PO HS 12/29/18 [History] Isosorbide Mononitrate 30 mg [Imdur 30 MG] 30 mg PO DAILY 12/29/18 [History] Metformin HCl Xr 500 mg [Glucophage XR 500 MG] 500 mg PO DAILY 12/29/18 [History] Nabumetone 500 mg PO BID 12/29/18 [History] Nitroglycerin 0.4 mg Tablet [Nitrostat 0.4 MG Tablet] 1 tab PO UD PRN 12/29/18 [History] Meloxicam 7.5 mg [Mobic 7.5 MG] 7.5 mg PO BID 04/14/19 [History] Tamsulosin HCl 0.4 mg [Flomax 0.4 MG] 0.4 mg PO DAILY 04/14/19 [History] Apixaban [Eliquis] 5 mg PO DAILY 01/24/20 [History] Buspirone HCl [Buspar] 10 mg PO DAILY 01/24/20 [History] Gabapentin 600 mg PO DAILY 01/24/20 [History] Sotalol HCl [Sotalol] 120 mg PO BID 01/24/20 [History] Hx Tetanus, Diphtheria Vaccination/Date Given: Yes Hx Influenza Vaccination/Date Given: No Hx Pneumococcal Vaccination/Date Given: No Travel Risk - International Travel Have you traveled outside of the country in past 3 weeks: No - Coronavirus Screening Are you exhibiting any of the following symptoms?: No Close contact with a COVID-19 positive Pt in past 14-21 Days: No - Review of Systems Constitutional: No Symptoms Eyes: No Symptoms Ears, Nose, & Throat: No Symptoms Respiratory: No Symptoms Cardiac: No Symptoms Abdominal/Gastrointestinal: No Symptoms Genitourinary Symptoms: No Symptoms Musculoskeletal: Injury (Right hand dorsal) Skin: No Symptoms Neurological: No Symptoms Psychological: No Symptoms Endocrine: No Symptoms Hematologic/Lymphatic: No Symptoms Immunological/Allergic: No Symptoms All Other Systems: Reviewed and Negative - Past Medical History Pertinent Past Medical History: Yes Neurological History: No Pertinent History ENT History: No Pertinent History Cardiac History: Coronary Artery Disease, Hypertension, Myocardial Infarction ([place]) Respiratory History: No Pertinent History Endocrine Medical History: Diabetes Type II Musculoskeletal History: No Pertinent History GI Medical History: Gallbladder Disease History: No Pertinent History Psycho-Social History: Depression Male Reproductive Disorders: No Pertinent History Other Medical History: Restless leg syndrome. 3 stents - Past Surgical History Past Surgical History: Yes Neuro Surgical History: No Pertinent History Cardiac: Cardiac Stent, Cardiac Catheterization Respiratory: No Pertinent History Gastrointestinal: Cholecystectomy Genitourinary: No Pertinent History Musculoskeletal: No Pertinent History Male Surgical History: No Pertinent History Other Surgical History: lymph node removed 25 yrs ago - Social History Smoking Status: Current every day smoker How long have you smoked: 30 yrs Exposure to second hand smoke: Yes Drug Use: none Patient Lives Alone: No - Nursing Vital Signs Nursing Vital Signs: Initial Vital Signs Temperature 97.0 F 10/13/21 14:15 Pulse Rate 76 10/13/21 14:15 Respiratory Rate 16 10/13/21 14:15 Blood Pressure 158/101 10/13/21 14:15 O2 Sat by Pulse Oximetry 97 10/13/21 14:15 Pain Scale Pain Intensity 8 - Physical Exam General Appearance: no apparent distress, alert, anxiety Eyes, Ears, Nose, Throat Exam: normal ENT inspection, moist mucous membranes Neck Exam: normal inspection, non-tender, supple, full range of motion Cardiovascular/Respiratory Exam: chest non-tender, no respiratory distress Abdominal Exam: non-tender Back Exam: normal inspection, normal range of motion, No CVA tenderness, No vertebral tenderness Shoulder Exam: normal inspection, non-tender, no evidence of injury, normal ROM Elbow/Forearm Exam: normal inspection, non-tender, no evidence of injury, normal ROM Wrist Exam: normal inspection, non-tender, no evidence of injury, normal ROM Hand Exam: bone tenderness (Dorsal aspect right hand), soft tissue tenderness (Dorsal aspect right hand), swelling (Dorsal aspect right hand. The patient has a strong right radial pulse) Neuro/Tendon Exam: normal sensation, normal motor functions, normal tendon functions, no evidence tendon injury Mental Status Exam: alert, oriented x 3, cooperative Skin Exam: normal color, warm, dry SpO2 Interpretation: normal O2 Delivery: Room Air - Course Nursing assessment & vital signs reviewed: Yes Ordered Tests: Active Orders 24 hr Category Date Time Status HAND (MINIMUM 3 VIEWS) Stat Exams 10/13/21 14:27 Completed Medication Summary Discontinued Medications Generic Name Dose Route Start Last Admin Trade Name Angie PRN Reason Stop Dose Admin Oxycodone/Acetaminophen 1 tab 10/13/21 14:40 Oxycodone Hcl/Apap 5 Mg/325 Mg Tablet PO 10/13/21 14:41 STAT STA Oxycodone/Acetaminophen Confirm 10/13/21 14:44 Oxycodone Hcl/Apap 5 Mg/325 Mg Tablet Administered 10/13/21 14:45 Dose 1 tab .ROUTE .STK-MED ONE - Progress Progress: improved, pain not gone completely Progress Note: 10/13/21 14:54 X-ray of the right hand shows no acute fracture or dislocation. Counseled pt/family regarding: diagnosis, need for follow-up, rad results - Departure Departure Disposition: Home Clinical Impression: Contusion of right hand Condition: Stable Critical Care Time: No Referrals: PIYUSH PLAZA MD [Primary Care Provider] - Follow up/PCP as directed Additional Instructions: Ice bath/pack 3 times a day right hand for the next 48 hours. If the pain persists beyond the next 2 to 3 days, follow-up at the [facility] orthopedic walk-in clinic. The hours are Saturday through Saturday 8 AM to 10 AM. Take your medication as prescribed. Prescriptions: Oxycodone HCl/Acetaminophen [Percocet 5-325 mg Tablet] 1 each PO Q8H PRN PRN #9 tablet MDD 3 PRN Reason: Moderate To Severe Pain
[2021-10-13] MEDS ORDERED: PERCOCET TABLET 5/325MG PO STA (14:40)
[2021-10-13] MEDS ORDERED: PERCOCET TABLET 5/325MG ONE (14:44)
--- NOTE | 2021-10-13 14:52 | XRAY ---
Indication: Pain and swelling following injury. Comparison: None 3 view right hand using portable technique demonstrates small bony exostosis lateral head 2nd metacarpal and mild 1st metacarpal multangular degenerative changes. No other bony, articular, or soft tissue abnormalities.
[2021-10-13 15:05] VITALS: BP 157/93; PULSE 67; O2SAT 96
== END 2021-10-13 15:14 | disposition home or self-care (01) ==
LOC: ED 13:52
DX: S60.221A Contusion of right hand, initial encounter (principal); W31.89XA Contact with other specified machinery, initial encounter; Y99.0 Civilian activity done for income or pay; M79.641 Pain in right hand; I10 Essential (primary) hypertension; E11.9 Type 2 diabetes mellitus without complications; E78.5 Hyperlipidemia, unspecified; Z72.0 Tobacco use; Z79.01 Long term (current) use of anticoagulants; Z79.02 Long term (current) use of antithrombotics/antiplatelets; Z79.84 Long term (current) use of oral hypoglycemic drugs; Z79.899 Other long term (current) drug therapy; Z79.891 Long term (current) use of opiate analgesic
CPT/HCPCS: 73130; 99283; A9270-GY

== ENCOUNTER 2022-06-11 11:41 | Observation (INO) | payer BC, OTHER ==
[2022-06-11 13:10] LABS: INFLUENZA A NEGATIVE (NEGATIVE); INFLUENZA B NEGATIVE (NEGATIVE); RESPIRATORY SYNCTIAL VIRUS NEGATIVE (Negative); SARS-CoV-2 Xpert Express NEGATIVE (NEGATIVE)
[2022-06-11] MEDS ORDERED: Zofran 4 MG/2 ML VIAL IV PRN (14:04)
[2022-06-11] MEDS ORDERED: Sodium Chloride 0.9% 1000 ML 1,000 ML IV STA ×2 (14:05→14:07)
[2022-06-11] MEDS ORDERED: Nitrostat 0.4 MG Tablet SL PRN (14:44)
[2022-06-11 14:46] LABS: Absolute Neutrophil Ct (ANC) 7.32 x10^3/uL (1.4-6.9); BASOPHIL % 0.7 % (0.0-0.4); Basophil (Absolute #) 0.08 x10^3/uL (0-0.4); Eosinophil % 2.3 % (0.00-5.0); Eosinophil (Absolute #) 0.27 x10^3/uL (0-0.5); Hematocrit 43.1 % (42-50); Hemoglobin 14.5 g/dL (12.5-18.0); IMMATURE GRAN # 0.04 x10^3u/L (0.00-0.03); IMMATURE GRAN % 0.3 % (0.00-0.4); Lymphocytes % 28.2 % (24.0-44.0); Mean Cell Volume 91.5 fL (78-100); Mean Corpuscular Hemoglobin 30.8 pg (26-32); Mean Corpuscular Hgb Concent. 33.6 g/dL (32-36); Mean Platelet Volume 10.8 fL (7.5-11.0); Monocyte (Absolute #) 0.71 x10^3/uL (0.0-1.3); Monocytes % 6.1 % (0.0-12.0); Neutrophil % 62.4 % (36.0-66.0); Platelet Count 202 x10^3/uL (150-450); Red Blood Count 4.71 x10^6/uL (4.1-5.6); Red Cell Distribution Width 12.6 % (11.5-14.0); White Blood Count 11.7 x10^3/uL (4.0-10.5)
[2022-06-11 14:59] LABS: ALBUMIN 3.9 g/dL (3.5-5.0); ALKALINE PHOSPHATASE 130 U/L (38-126); ANION GAP 10.6 MEQ/L (5-15); BLOOD UREA NITROGEN 10 mg/dL (9-20); CHLORIDE 106 mmol/L (98-107); Calcium 9.3 mg/dL (8.4-10.2); Carbon Dioxide 27 mmol/L (22-30); EST GLOMERULAR FILTRATION RATE > 60.0 ML/MIN; Glucose 157 mg/dL (74-106); Potassium 4.3 mmol/L (3.5-5.1); SGOT/AST 24 U/L (17-59); SGPT/ALT 22 U/L (0-50); SODIUM 139 mmol/L (137-145); Total Protein 6.9 g/dL (6.3-8.2)
[2022-06-11] MEDS ORDERED: MEDICATION INTERVENTION MC SCH (15:00)
[2022-06-11] MEDS ORDERED: Nicoderm CQ 21 MG TOP SCH (15:15)
[2022-06-11] MEDS: TORAdol 30 mg Injection IV PRN ×2 (15:31→22:30)
--- NOTE | 2022-06-11 16:45 | XRAY ---
Indication: Abdominal pain. Multiple contiguous axial images obtained through the abdomen only prior to and following 80 cc Isovue 370 contrast as ordered. Comparison: January 24, 2020 Lung bases demonstrate stable right lower lobe calcified granuloma. No infiltrate or effusion. Heart not enlarged. Noncontrasted images negative for pathologic visceral calcifications/calculi. Noncontrasted stomach and bowel loops appear nonobstructed with normal appendix. Again mild fatty liver and cholecystectomy. No free fluid/air. Postcontrast images demonstrate normal visceral enhancement and renal excretion. A few small bilateral renal cysts not seen on previous noncontrast exam. Largest cyst right lower pole measuring 1.7 cm. Remaining liver, pancreas, spleen, adrenal glands, kidneys, and proximal ureters are unremarkable. There remains mild aortoiliac calcifications. No AAA or pathological retroperitoneal lymphadenopathy. Osseous structures intact again with mild/moderate degenerative changes throughout the spine again greatest lumbar. No ventral hernias. Impression: 1. Again chronic findings including right lower lobe calcified granuloma, arteriosclerotic disease, fatty liver, bilateral renal cysts, and degenerative spondylosis. 2. Remaining CT abdomen with and without contrast exam is again negative.
[2022-06-11] MEDS: Sodium Chloride 0.9% 1000 ML 1,000 ML IV SCH (16:58)
[2022-06-11] MEDS ORDERED: Zestril 20 MG PO SCH (22:00)
[2022-06-11] MEDS ORDERED: ESOMEPRAZOLE MAGNESIUM 20 MG PO SCH (22:00)
[2022-06-11] MEDS ORDERED: NON-FORMULARY ITEM (Nabumetone [Nabumetone] 500 MG Tablet) PO SCH (22:00)
[2022-06-11] MEDS ORDERED: LIPITOR 40MG PO SCH (22:00)
[2022-06-11] MEDS ORDERED: Zestril 10 MG PO SCH (22:00)
[2022-06-11] MEDS ORDERED: ZOCOR 20MG PO SCH (22:00)
[2022-06-11] MEDS: Betapace 80 MG PO SCH (22:29)
[2022-06-11] MEDS: ELIQUIS 2.5 MG TABLET PO SCH (22:30)
[2022-06-11] MEDS: Protonix 40MG Tablet PO SCH (22:30)
[2022-06-11] MEDS ORDERED: MELATONIN PO PRN (22:35)
[2022-06-11] MEDS ORDERED: Neurontin ONE (22:41)
[2022-06-11] MEDS ORDERED: PROZAC 10 MG ONE (22:44)
[2022-06-12] MEDS: Sodium Chloride 0.9% 1000 ML 1,000 ML IV SCH (03:03)
[2022-06-12 05:08] LABS: Absolute Neutrophil Ct (ANC) 5.68 x10^3/uL (1.4-6.9); BASOPHIL % 0.9 % (0.0-0.4); Basophil (Absolute #) 0.09 x10^3/uL (0-0.4); Eosinophil % 2.3 % (0.00-5.0); Eosinophil (Absolute #) 0.22 x10^3/uL (0-0.5); Hematocrit 40.8 % (42-50); Hemoglobin 13.6 g/dL (12.5-18.0); IMMATURE GRAN # 0.02 x10^3u/L (0.00-0.03); IMMATURE GRAN % 0.2 % (0.00-0.4); Lymphocyte (Absolute #) 3.01 x10^3/uL (1.0-4.6); Lymphocytes % 31.2 % (24.0-44.0); Mean Cell Volume 91.7 fL (78-100); Mean Corpuscular Hemoglobin 30.6 pg (26-32); Mean Corpuscular Hgb Concent. 33.3 g/dL (32-36); Mean Platelet Volume 10.6 fL (7.5-11.0); Monocyte (Absolute #) 0.63 x10^3/uL (0.0-1.3); Monocytes % 6.5 % (0.0-12.0); Neutrophil % 58.9 % (36.0-66.0); Platelet Count 179 x10^3/uL (150-450); Red Blood Count 4.45 x10^6/uL (4.1-5.6); White Blood Count 9.7 x10^3/uL (4.0-10.5)
[2022-06-12 05:38] LABS: ALBUMIN 3.3 g/dL (3.5-5.0); ALKALINE PHOSPHATASE 116 U/L (38-126); ANION GAP 9.2 MEQ/L (5-15); BLOOD UREA NITROGEN 9 mg/dL (9-20); CHLORIDE 108 mmol/L (98-107); Calcium 8.6 mg/dL (8.4-10.2); Carbon Dioxide 26 mmol/L (22-30); Creatinine 1 0.78 mg/dL (0.66-1.25); EST GLOMERULAR FILTRATION RATE > 60.0 ML/MIN; Glucose 130 mg/dL (74-106); Potassium 3.9 mmol/L (3.5-5.1); SGOT/AST 23 U/L (17-59); SGPT/ALT 21 U/L (0-50); SODIUM 139 mmol/L (137-145); Total Protein 6.2 g/dL (6.3-8.2)
[2022-06-12] MEDS: Protonix 40MG Tablet PO SCH (09:31)
[2022-06-12] MEDS: ELIQUIS 2.5 MG TABLET PO SCH (09:31)
[2022-06-12] MEDS: Betapace 80 MG PO SCH (09:31)
[2022-06-12] MEDS ORDERED: NORVASC 5 MG PO SCH (10:00)
[2022-06-12] MEDS ORDERED: Neurontin PO SCH ×2 (10:00→22:00)
[2022-06-12] MEDS ORDERED: BUSPAR 5 MG PO SCH (10:00)
[2022-06-12] MEDS ORDERED: PLAVIX Tablet PO SCH (10:00)
[2022-06-12] MEDS ORDERED: Imdur 60MG PO SCH (10:00)
[2022-06-12] MEDS ORDERED: Zestril 10 MG PO SCH (10:00)
[2022-06-12] MEDS ORDERED: PROZAC 10 MG PO SCH ×2 (10:00→22:00)
[2022-06-12] MEDS ORDERED: HOLD METFORMIN PRODUCTS FOR 48 HOURS MC SCH (10:00)
[2022-06-12] MEDS ORDERED: Glucophage XR 500 MG PO SCH (10:00)
[2022-06-12] MEDS ORDERED: Flomax 0.4 MG PO SCH (10:00)
[2022-06-12 11:45] VITALS: BP 185/91; PULSE 70; O2SAT 94
--- NOTE | 2022-06-12 12:52 | PCM.SSS ---
History of Present Illness - Chief Complaint Chief Complaint: c/o nausea vomiting, diarrhea for 3 days History of Present Illness: is a 56 year old male started having nausea vomiting and diarrhea for three days. No fever chills - Review of Systems Constitutional: No Fever, No Chills Eyes: No Symptoms Ears, Nose, & Throat: No Symptoms Respiratory: No Cough, No Short Of Breath Cardiac: No Chest Pain, No Edema, No Syncope Abdominal/Gastrointestinal: Abdominal Pain, Nausea, Vomiting, Diarrhea Genitourinary Symptoms: No Dysuria Musculoskeletal: No Back Pain, No Neck Pain Skin: No Rash Neurological: No Dizziness, No Focal Weakness, No Sensory Changes Psychological: No Symptoms Endocrine: No Symptoms Hematologic/Lymphatic: No Symptoms Immunological/Allergic: No Symptoms Medications & Allergies Home Medications: Home Medication List Fluoxetine HCl 10 mg [Prozac 10 mg] 10 mg PO HS 12/27/14 [History Confirmed 06/11/22] lisinopriL [Zestril] 30 mg PO DAILY 12/27/14 [History Confirmed 06/12/22] Clopidogrel Bisulfate [PLAVIX Tablet] 75 mg PO DAILY 10/20/18 [History Confirmed 06/11/22] Atorvastatin Calcium [Lipitor] 40 mg PO HS 12/29/18 [History Confirmed 06/11/22] Isosorbide Mononitrate 30 mg [Imdur 30 MG] 60 mg PO DAILY 12/29/18 [History Confirmed 06/11/22] Nabumetone 500 mg PO BID 12/29/18 [History Confirmed 06/11/22] Nitroglycerin 0.4 mg Tablet [Nitrostat 0.4 MG Tablet] 1 tab PO UD PRN 12/29/18 [History Confirmed 06/11/22] Tamsulosin HCl 0.4 mg [Flomax 0.4 MG] 0.4 mg PO DAILY 04/14/19 [History Confirmed 06/11/22] Apixaban [Eliquis] 5 mg PO BID 01/24/20 [History Confirmed 06/11/22] Buspirone HCl [Buspar] 10 mg PO DAILY 01/24/20 [History Confirmed 06/11/22] Gabapentin 800 mg PO QHS 01/24/20 [History Confirmed 06/12/22] Sotalol HCl [Sotalol] 120 mg PO BID 01/24/20 [History Confirmed 06/11/22] Amlodipine Besylate 10 mg PO DAILY 06/11/22 [History Confirmed 06/11/22] Esomeprazole Magnesium [Nexium 24Hr] 20 mg PO BID 06/11/22 [History Confirmed 06/11/22] Melatonin 3 mg PO HS 06/11/22 [History Confirmed 06/11/22] Metformin HCl Xr 500 mg [Glucophage XR 500 MG] 500 mg PO DAILY #0 06/12/22 [Rx Confirmed 06/11/22] Allergies/Adverse Reactions: Allergies Allergy/AdvReac Type Severity Reaction Status Date / Time No Known Drug Allergies Allergy Verified 10/13/21 14:20 - Past Medical History Past Medical History: Yes Neurological History: No Pertinent History ENT History: No Pertinent History Cardiac History: Coronary Artery Disease, Hypertension, Myocardial Infarction ([place]) Respiratory History: No Pertinent History Endocrine Medical History: Diabetes Type II Musculoskelatal History: No Pertinent History GI Medical History: Gallbladder Disease History: No Pertinent History Pyscho-Social History: Depression Male Reproductive Disorders: No Pertinent History Comment: Restless leg syndrome. 3 stents - Past Surgical History Past Surgical History: Yes Neuro Surgical History: No Pertinent History Cardiac History: Cardiac Stent, Cardiac Catheterization Respiratory Surgery: No Pertinent History GI Surgical History: Cholecystectomy Genitourinary Surgical Hx: No Pertinent History Musculskeletal Surgical Hx: No Pertinent History Male Surgical History: No Pertinent History Other Surgical History: lymph node removed 25 yrs ago - Social History Smoking Status: Current every day smoker How long have you smoked: 30 yrs Exposure to second hand smoke: Yes Alcohol: None Drug Use: none - Physical Exam Vital Signs: Vital Signs - 24 hr Temp Pulse Resp BP Pulse Ox 06/12/22 11:44 97.9 F 70 16 185/91 94 L 06/12/22 09:00 18 06/12/22 07:18 98.1 F 66 16 165/84 97 06/12/22 05:00 17 06/12/22 04:00 97.1 F 65 17 135/84 91 L 06/12/22 01:00 16 06/12/22 00:23 152/74 06/11/22 23:16 97.5 F 76 16 176/101 92 L 06/11/22 18:51 97.5 F 65 17 167/90 91 L 06/11/22 17:00 16 06/11/22 16:13 97.7 F 60 18 136/75 98 06/11/22 14:31 97.5 F 68 16 149/80 98 06/11/22 13:00 16 General Appearance: no apparent distress, alert Neurologic Exam: alert, oriented x 3, cooperative, normal mood/affect, nml cerebellar function, nml station & gait, sensation nml, No motor deficits Eye Exam: PERRL/EOMI, eyes nml inspection Ears, Nose, Throat Exam: normal ENT inspection, TMs normal, pharynx normal, moist mucous membranes Neck Exam: normal inspection, non-tender, supple, full range of motion Respiratory Exam: normal breath sounds, lungs clear, No respiratory distress Cardiovascular Exam: regular rate/rhythm, normal heart sounds, normal peripheral pulses Gastrointestinal/Abdomen Exam: soft, normal bowel sounds, No tenderness, No mass Back Exam: normal inspection, normal range of motion, No CVA tenderness, No vertebral tenderness Extremity Exam: normal inspection, normal range of motion, pelvis stable Skin Exam: normal color, warm, dry, No rash Lymphatic Exam: No adenopathy Results - Labs Lab/Micro Results: Lab Results-Last 24 Hours 06/11/22 06/11/22 06/11/22 Range/Units 12:32 14:47 14:47 WBC 11.7 H (4.0-10.5) x10^3/uL RBC 4.71 (4.1-5.6) x10^6/uL Hgb 14.5 (12.5-18.0) g/dL Hct 43.1 (42-50) % MCV 91.5 (78-100) fL MCH 30.8 (26-32) pg MCHC 33.6 (32-36) g/dL RDW 12.6 (11.5-14.0) % Plt Count 202 (150-450) x10^3/uL MPV 10.8 (7.5-11.0) fL Gran % 62.4 (36.0-66.0) % Immature Gran % (Auto) 0.3 (0.00-0.4) % Nucleat RBC Rel Count 0.0 (0.00-0.1) % Eos # (Auto) 0.27 (0-0.5) x10^3/uL Immature Gran # (Auto) 0.04 H (0.00-0.03) x10^3u/L Absolute Lymphs (auto) 3.30 (1.0-4.6) x10^3/uL Absolute Monos (auto) 0.71 (0.0-1.3) x10^3/uL Absolute Nucleated RBC 0.00 (0.00-0.01) x10^3u/L Lymphocytes % 28.2 (24.0-44.0) % Monocytes % 6.1 (0.0-12.0) % Eosinophils % 2.3 (0.00-5.0) % Basophils % 0.7 (0.0-0.4) % Absolute Granulocytes 7.32 H (1.4-6.9) x10^3/uL Basophils # 0.08 (0-0.4) x10^3/uL Sodium 139 (137-145) mmol/L Potassium 4.3 (3.5-5.1) mmol/L Chloride 106 (98-107) mmol/L Carbon Dioxide 27 (22-30) mmol/L Anion Gap 10.6 (5-15) MEQ/L BUN 10 (9-20) mg/dL Creatinine 0.80 (0.66-1.25) mg/dL Estimated GFR > 60.0 ML/MIN Glucose 157 H (74-106) mg/dL POC Glucometer (74 to 106) mg/dL Calcium 9.3 (8.4-10.2) mg/dL Total Bilirubin 0.60 (0.2-1.3) mg/dL AST 24 (17-59) U/L ALT 22 (0-50) U/L Alkaline Phosphatase 130 H (38-126) U/L Serum Total Protein 6.9 (6.3-8.2) g/dL Albumin 3.9 (3.5-5.0) g/dL Influenza Type A Ag NEGATIVE (NEGATIVE) Influenza Type B Ag NEGATIVE (NEGATIVE) RSV (PCR) NEGATIVE (Negative) SARS-CoV-2 (PCR) NEGATIVE (NEGATIVE) 06/11/22 06/12/22 06/12/22 Range/Units 15:08 05:05 05:05 WBC 9.7 (4.0-10.5) x10^3/uL RBC 4.45 (4.1-5.6) x10^6/uL Hgb 13.6 (12.5-18.0) g/dL Hct 40.8 L (42-50) % MCV 91.7 (78-100) fL MCH 30.6 (26-32) pg MCHC 33.3 (32-36) g/dL RDW 13.0 (11.5-14.0) % Plt Count 179 (150-450) x10^3/uL MPV 10.6 (7.5-11.0) fL Gran % 58.9 (36.0-66.0) % Immature Gran % (Auto) 0.2 (0.00-0.4) % Nucleat RBC Rel Count 0.0 (0.00-0.1) % Eos # (Auto) 0.22 (0-0.5) x10^3/uL Immature Gran # (Auto) 0.02 (0.00-0.03) x10^3u/L Absolute Lymphs (auto) 3.01 (1.0-4.6) x10^3/uL Absolute Monos (auto) 0.63 (0.0-1.3) x10^3/uL Absolute Nucleated RBC 0.00 (0.00-0.01) x10^3u/L Lymphocytes % 31.2 (24.0-44.0) % Monocytes % 6.5 (0.0-12.0) % Eosinophils % 2.3 (0.00-5.0) % Basophils % 0.9 (0.0-0.4) % Absolute Granulocytes 5.68 (1.4-6.9) x10^3/uL Basophils # 0.09 (0-0.4) x10^3/uL Sodium 139 (137-145) mmol/L Potassium 3.9 (3.5-5.1) mmol/L Chloride 108 H (98-107) mmol/L Carbon Dioxide 26 (22-30) mmol/L Anion Gap 9.2 (5-15) MEQ/L BUN 9 (9-20) mg/dL Creatinine 0.78 (0.66-1.25) mg/dL Estimated GFR > 60.0 ML/MIN Glucose 130 H (74-106) mg/dL POC Glucometer 127 H (74 to 106) mg/dL Calcium 8.6 (8.4-10.2) mg/dL Total Bilirubin 0.60 (0.2-1.3) mg/dL AST 23 (17-59) U/L ALT 21 (0-50) U/L Alkaline Phosphatase 116 (38-126) U/L Serum Total Protein 6.2 L (6.3-8.2) g/dL Albumin 3.3 L (3.5-5.0) g/dL Influenza Type A Ag (NEGATIVE) Influenza Type B Ag (NEGATIVE) RSV (PCR) (Negative) SARS-CoV-2 (PCR) (NEGATIVE) - Radiology Impressions Radiology Exams & Impressions: Radiology Procedures Category Date Time Status ABDOMEN W/WO CONTRAST [CT] Routine Exams 06/11/22 15:15 Completed Assessment/Plan (1) Viral gastroenteritis Status: Acute Code(s): A08.4 - VIRAL INTESTINAL INFECTION, UNSPECIFIED (2) Dehydration Status: Acute Code(s): E86.0 - DEHYDRATION (3) Abdominal pain Status: Resolved Qualifiers: Abdominal location: generalized Qualified Code(s): R10.84 - Generalized abdominal pain Code(s): R10.9 - UNSPECIFIED ABDOMINAL PAIN Hospital Summary - Hospital Course Hospital Course: Chief Complaint Diagnosis dehydration Allergies Allergy/AdvReac Type Severity Reaction Status Date / Time No Known Drug Allergies Allergy Verified 10/13/21 14:20 Vital Signs (Last 24 hours) Temp Pulse Resp BP Pulse Ox 06/12/22 11:44 97.9 F 70 16 185/91 94 L 06/12/22 09:00 18 06/12/22 07:18 98.1 F 66 16 165/84 97 06/12/22 05:00 17 06/12/22 04:00 97.1 F 65 17 135/84 91 L 06/12/22 01:00 16 06/12/22 00:23 152/74 06/11/22 23:16 97.5 F 76 16 176/101 92 L 06/11/22 18:51 97.5 F 65 17 167/90 91 L 06/11/22 17:00 16 06/11/22 16:13 97.7 F 60 18 136/75 98 06/11/22 14:31 97.5 F 68 16 149/80 98 06/11/22 13:00 16 Home Medications Medication Instructions Recorded Confirmed Last Taken Type Amlodipine Besylate 10 mg PO DAILY 06/11/22 06/11/22 Unknown History Esomeprazole Magnesium [Nexium 20 mg PO BID 06/11/22 06/11/22 Unknown History 24Hr] Melatonin 3 mg PO HS 06/11/22 06/11/22 06/10/22 History Metformin HCl Xr 500 mg 500 mg PO DAILY #0 06/12/22 06/11/22 Unknown Rx [Glucophage XR 500 MG] Current Medications Discontinued Medications Generic Name Dose Route Start Last Admin Trade Name Freq PRN Reason Stop Dose Admin Amlodipine Besylate 10 mg 06/12/22 10:00 06/12/22 09:31 Amlodipine Besylate 5 Mg Tablet PO 07/12/22 09:59 10 mg QAM MATI Administration Apixaban 5 mg 06/11/22 22:00 06/12/22 09:31 Apixaban 2.5 Mg Tablet PO 07/11/22 21:59 5 mg BID MATI Administration Buspirone HCl 10 mg 06/12/22 10:00 06/12/22 09:31 Buspirone Hcl 5 Mg Tablet PO 07/12/22 09:59 10 mg DAILY MATI Administration Clopidogrel Bisulfate 75 mg 06/12/22 10:00 06/12/22 09:31 Clopidogrel Bisulfate 75 Mg Tablet PO 07/12/22 09:59 75 mg DAILY MATI Administration Fluoxetine HCl 10 mg 06/12/22 10:00 06/11/22 22:48 Fluoxetine Hcl 10 Mg Tablet PO 07/12/22 09:59 10 mg DAILY MATI Administration Fluoxetine HCl Confirm 06/11/22 22:44 Fluoxetine Hcl 10 Mg Tablet Administered 06/11/22 22:45 Dose 10 mg .ROUTE .STK-MED ONE Fluoxetine HCl 10 mg 06/12/22 22:00 Fluoxetine Hcl 10 Mg Tablet PO 07/12/22 21:59 HS MATI Gabapentin 800 mg 06/12/22 10:00 06/11/22 22:47 Gabapentin 400 Mg Capsule PO 07/12/22 09:59 800 mg DAILY MATI Administration Gabapentin Confirm 06/11/22 22:41 Gabapentin 400 Mg Capsule Administered 06/11/22 22:42 Dose 800 mg .ROUTE .STK-MED ONE Gabapentin 800 mg 06/12/22 22:00 Gabapentin 400 Mg Capsule PO 07/12/22 21:59 HS MATI Sodium Chloride 1,000 mls @ 999 mls/hr 06/11/22 14:05 06/11/22 14:25 Sodium Chloride 0.9% 1000 Ml IV 06/11/22 15:05 999 mls/hr .Q1H1M STA Administration Sodium Chloride 1,000 mls @ 999 mls/hr 06/11/22 14:07 06/11/22 15:30 Sodium Chloride 0.9% 1000 Ml IV 06/11/22 15:07 999 mls/hr .Q1H1M STA Administration Sodium Chloride 1,000 mls @ 100 mls/hr 06/11/22 16:00 06/12/22 03:03 Sodium Chloride 0.9% 1000 Ml IV 07/11/22 15:59 100 mls/hr .Q10H MATI Administration Isosorbide Mononitrate 60 mg 06/12/22 10:00 06/12/22 09:31 Isosorbide Mononitrate 60 Mg Tab PO 07/12/22 09:59 60 mg DAILY MATI Administration Ketorolac Tromethamine 30 mg 06/11/22 14:56 06/11/22 22:30 Ketorolac Tromethamine 30 Mg/Ml Inj IV 06/16/22 14:55 30 mg Q6H PRN PRN Administration PAIN Lisinopril 30 mg 06/11/22 22:00 06/12/22 02:16 Lisinopril 10 Mg Tablet PO 07/11/22 21:59 Not Given HS MATI Lisinopril 30 mg 06/12/22 10:00 06/12/22 09:30 Lisinopril 10 Mg Tablet PO 07/12/22 09:59 30 mg DAILY MATI Administration Melatonin 3 mg 06/11/22 22:35 06/11/22 22:47 Melatonin 3 Mg Tablet PO 07/11/22 22:34 3 mg HS PRN PRN Administration sleep Metformin HCl 500 mg 06/12/22 10:00 Metformin Hcl Er 500 Mg Tab PO 07/12/22 09:59 DAILY MATI Metformin HCl 500 mg 06/14/22 10:00 Metformin Hcl Er 500 Mg Tab PO 07/14/22 09:59 DAILY MATI Miscellaneous Information 1 each 06/11/22 15:00 Medication Intervention 1 Each Each 07/11/22 14:59 .RN TO CHECK MATI Nicotine 21 mg 06/11/22 15:15 06/11/22 15:31 Nicotine 21 Mg/Patch Patch TOP 07/11/22 15:14 21 mg Q24H MATI Administration Nitroglycerin 0.4 mg 06/11/22 14:44 Nitroglycerin 0.4 Mg Tablet Bottle SL 07/11/22 14:43 Q5MIN PRN MR X 3 PRN CHEST PAIN Non-Formulary Medication 1 each 06/12/22 10:00 06/12/22 09:34 Hold Metformin Products For 48hrs 06/13/22 10:01 1 each DAILY MATI Administration Ondansetron HCl 4 mg 06/11/22 14:04 06/11/22 14:26 Ondansetron Hcl 4 Mg/2 Ml Vial IV 07/11/22 14:03 4 mg Q6H PRN PRN Administration NAUSEA/VOMITING Pantoprazole Sodium 40 mg 06/11/22 22:00 06/12/22 09:31 Protonix (Pantoprazole) 40 Mg Tablet PO 07/11/22 21:59 40 mg BID MATI Administration Simvastatin 40 mg 06/11/22 22:00 06/11/22 22:30 Simvastatin 20 Mg Tablet PO 07/11/22 21:59 40 mg HS MATI Administration Sotalol HCl 120 mg 06/11/22 22:00 06/12/22 09:31 Sotalol Hcl 80 Mg Tablet PO 07/11/22 21:59 120 mg BID MATI Administration Tamsulosin HCl 0.4 mg 06/12/22 10:00 06/12/22 09:31 Tamsulosin Hcl 0.4 Mg Cap PO 07/12/22 09:59 0.4 mg DAILY MATI Administration Intake & Output (Last 24 hours) 06/10/22 06/11/22 06/12/22 06/13/22 11:59 11:59 11:59 11:59 Intake Total 4480 700 Balance 4480 700 Weight 118.7 kg Laboratory Results (Last 24 hours) 06/12/22 06/12/22 06/11/22 05:05 05:05 15:08 WBC 9.7 RBC 4.45 Hgb 13.6 Hct 40.8 L MCV 91.7 MCH 30.6 MCHC 33.3 RDW 13.0 Plt Count 179 MPV 10.6 Gran % 58.9 Immature Gran % (Auto) 0.2 Nucleat RBC Rel Count 0.0 Eos # (Auto) 0.22 Immature Gran # (Auto) 0.02 Absolute Lymphs (auto) 3.01 Absolute Monos (auto) 0.63 Absolute Nucleated RBC 0.00 Lymphocytes % 31.2 Monocytes % 6.5 Eosinophils % 2.3 Basophils % 0.9 Absolute Granulocytes 5.68 Basophils # 0.09 Sodium 139 Potassium 3.9 Chloride 108 H Carbon Dioxide 26 Anion Gap 9.2 BUN 9 Creatinine 0.78 Estimated GFR > 60.0 Glucose 130 H POC Glucometer 127 H Calcium 8.6 Total Bilirubin 0.60 AST 23 ALT 21 Alkaline Phosphatase 116 Serum Total Protein 6.2 L Albumin 3.3 L Influenza Type A Ag Influenza Type B Ag RSV (PCR) SARS-CoV-2 (PCR) 06/11/22 06/11/22 06/11/22 14:47 14:47 12:32 WBC 11.7 H RBC 4.71 Hgb 14.5 Hct 43.1 MCV 91.5 MCH 30.8 MCHC 33.6 RDW 12.6 Plt Count 202 MPV 10.8 Gran % 62.4 Immature Gran % (Auto) 0.3 Nucleat RBC Rel Count 0.0 Eos # (Auto) 0.27 Immature Gran # (Auto) 0.04 H Absolute Lymphs (auto) 3.30 Absolute Monos (auto) 0.71 Absolute Nucleated RBC 0.00 Lymphocytes % 28.2 Monocytes % 6.1 Eosinophils % 2.3 Basophils % 0.7 Absolute Granulocytes 7.32 H Basophils # 0.08 Sodium 139 Potassium 4.3 Chloride 106 Carbon Dioxide 27 Anion Gap 10.6 BUN 10 Creatinine 0.80 Estimated GFR > 60.0 Glucose 157 H POC Glucometer Calcium 9.3 Total Bilirubin 0.60 AST 24 ALT 22 Alkaline Phosphatase 130 H Serum Total Protein 6.9 Albumin 3.9 Influenza Type A Ag NEGATIVE Influenza Type B Ag NEGATIVE RSV (PCR) NEGATIVE SARS-CoV-2 (PCR) NEGATIVE Orders (Last 24 hours) Category Date Time Status Observation [Place in Observation] ROUTINE Care 06/11/22 12:13 Completed Full Liquid Diet Diet 06/11/22 Dinner Completed House Regular Diet Diet 06/12/22 Breakfast Completed Discharge Routine Discharge 06/12/22 Ordered ABDOMEN W/WO CONTRAST [CT] Routine Exams 06/11/22 15:15 Completed CBC W DIFF AM.LAB Lab 06/12/22 05:05 Completed CBC W DIFF Routine Lab 06/11/22 14:47 Completed CMP AM.LAB Lab 06/12/22 05:05 Completed CMP Routine Lab 06/11/22 14:47 Completed COVID/FLU/RSV Panel Stat Lab 06/11/22 12:32 Completed POCT GLUCOSE Stat Lab 06/11/22 15:08 Completed Amlodipine Besylate 5 mg [Norvasc 5 mg] Med 06/12/22 10:00 Discontinued 10 mg PO QAM Apixaban [Eliquis 2.5 mg Tablet] Med 06/11/22 22:00 Discontinued 5 mg PO BID Buspirone HCl 5 mg [Buspar 5 mg] Med 06/12/22 10:00 Discontinued 10 mg PO DAILY Clopidogrel Bisulfate [PLAVIX Tablet] Med 06/12/22 10:00 Discontinued 75 mg PO DAILY Fluoxetine HCl 10 mg [Prozac 10 mg] Med 06/11/22 22:44 Discontinued 10 mg .ROUTE .STK-MED ONE Fluoxetine HCl 10 mg [Prozac 10 mg] Med 06/12/22 10:00 Discontinued 10 mg PO DAILY Fluoxetine HCl 10 mg [Prozac 10 mg] Med 06/12/22 22:00 Discontinued 10 mg PO HS Gabapentin [Neurontin ] Med 06/11/22 22:41 Discontinued 800 mg .ROUTE .STK-MED ONE Gabapentin [Neurontin ] Med 06/12/22 10:00 Discontinued 800 mg PO DAILY Gabapentin [Neurontin ] Med 06/12/22 22:00 Discontinued 800 mg PO HS Hold Metformin [Hold Metformin Products For 48 Hours] Med 06/12/22 10:00 Discontinued 1 each MC DAILY Isosorbide Mononitrate 60 mg [Imdur 60MG] Med 06/12/22 10:00 Discontinued 60 mg PO DAILY KETOROLAC trometh 30 mg Inj [TORAdol 30 mg Injection Med 06/11/22 14:56 Discontinued ] 30 mg IV Q6H PRN PRN Lisinopril 10 mg [Zestril 10 MG] Med 06/12/22 10:00 Discontinued 30 mg PO DAILY Lisinopril 10 mg [Zestril 10 MG] Med 06/11/22 22:00 Discontinued 30 mg PO HS Medication Intervention Med 06/11/22 15:00 Discontinued 1 each MC .RN TO CHECK Melatonin Med 06/11/22 22:35 Discontinued 3 mg PO HS PRN PRN Metformin HCl Xr 500 mg [Glucophage XR 500 MG] Med 06/12/22 10:00 Dis continued 500 mg PO DAILY Metformin HCl Xr 500 mg [Glucophage XR 500 MG] Med 06/14/22 10:00 Discontinued 500 mg PO DAILY NaCl 0.9% 1000 ml [Sodium Chloride 0.9% 1000 ML] 1,000 Med 06/11/22 16:00 Discontinued ml IV 100 mls/hr NaCl 0.9% 1000 ml [Sodium Chloride 0.9% 1000 ML] 1,000 Med 06/11/22 14:05 Discontinued ml IV 999 mls/hr NaCl 0.9% 1000 ml [Sodium Chloride 0.9% 1000 ML] 1,000 Med 06/11/22 14:07 Discontinued ml IV 999 mls/hr Nicotine 21 mg [Nicoderm CQ 21 MG] Med 06/11/22 15:15 Discontinued 21 mg TOP Q24H Nitroglycerin 0.4 mg Tablet [Nitrostat 0.4 MG Tablet Med 06/11/22 14:44 Discontinued ] 0.4 mg SL Q5MIN PRN MR X 3 PRN Ondansetron HCl 4 mg/2 ml [Zofran 4 MG/2 ML VIAL] Med 06/11/22 14:04 Discontinued 4 mg IV Q6H PRN PRN PANTOPRAZOLE 40 mg Tablet [Protonix 40MG Tablet] Med 06/11/22 22:00 Discontinued 40 mg PO BID Simvastatin 20Mg [Zocor 20Mg] Med 06/11/22 22:00 Discontinued 40 mg PO HS Sotalol HCl 80 mg [Betapace 80 MG] Med 06/11/22 22:00 Discontinued 120 mg PO BID Tamsulosin HCl 0.4 mg [Flomax 0.4 MG] Med 06/12/22 10:00 Discontinued 0.4 mg PO DAILY Patient Care Notes (Last 24 hours) 06/12/22 11:54 Nursing Note by Diana Prabhakar ROUNDED ON PATIENT WITH DR. PLAZA. RECEIVED ORDER TO DISCHARGE HOME. Initialized on 06/12/22 11:54 - END OF NOTE 06/12/22 08:00 (created 06/12/22 09:04) Nursing Note by Diana Prabhakar PATIENT DENIES NAUSEA, VOMITING, AND ABDOMINAL PAIN THIS MORNING AND STATES HE FEELS "BACK TO NORMAL" AND CANNOT WAIT TO GET HOME SO HE CAN EAT. DIET ADVANCED TO HOUSE REGULAR PER DR. PLAZA. Initialized on 06/12/22 09:04 - END OF NOTE - Vitals & Intake/Output Vital Signs: Vital Signs Temperature 97.9 F 06/12/22 11:44 Pulse Rate 70 06/12/22 11:44 Respiratory Rate 16 06/12/22 11:44 Blood Pressure 185/91 06/12/22 11:44 O2 Sat by Pulse Oximetry 94 L 06/12/22 11:44 Intake & Output: Intake & Output 06/10/22 06/11/22 06/12/22 06/13/22 11:59 11:59 11:59 11:59 Intake Total 4480 700 Balance 4480 700 Weight 118.7 kg - Lab Result Diagrams: 06/12/22 05:05 06/12/22 05:05 Lab Results-Last 24 Hrs: Lab Results-Last 24 Hours 06/11/22 06/11/22 06/11/22 Range/Units 12:32 14:47 14:47 WBC 11.7 H (4.0-10.5) x10^3/uL RBC 4.71 (4.1-5.6) x10^6/uL Hgb 14.5 (12.5-18.0) g/dL Hct 43.1 (42-50) % MCV 91.5 (78-100) fL MCH 30.8 (26-32) pg MCHC 33.6 (32-36) g/dL RDW 12.6 (11.5-14.0) % Plt Count 202 (150-450) x10^3/uL MPV 10.8 (7.5-11.0) fL Gran % 62.4 (36.0-66.0) % Immature Gran % (Auto) 0.3 (0.00-0.4) % Nucleat RBC Rel Count 0.0 (0.00-0.1) % Eos # (Auto) 0.27 (0-0.5) x10^3/uL Immature Gran # (Auto) 0.04 H (0.00-0.03) x10^3u/L Absolute Lymphs (auto) 3.30 (1.0-4.6) x10^3/uL Absolute Monos (auto) 0.71 (0.0-1.3) x10^3/uL Absolute Nucleated RBC 0.00 (0.00-0.01) x10^3u/L Lymphocytes % 28.2 (24.0-44.0) % Monocytes % 6.1 (0.0-12.0) % Eosinophils % 2.3 (0.00-5.0) % Basophils % 0.7 (0.0-0.4) % Absolute Granulocytes 7.32 H (1.4-6.9) x10^3/uL Basophils # 0.08 (0-0.4) x10^3/uL Sodium 139 (137-145) mmol/L Potassium 4.3 (3.5-5.1) mmol/L Chloride 106 (98-107) mmol/L Carbon Dioxide 27 (22-30) mmol/L Anion Gap 10.6 (5-15) MEQ/L BUN 10 (9-20) mg/dL Creatinine 0.80 (0.66-1.25) mg/dL Estimated GFR > 60.0 ML/MIN Glucose 157 H (74-106) mg/dL POC Glucometer (74 to 106) mg/dL Calcium 9.3 (8.4-10.2) mg/dL Total Bilirubin 0.60 (0.2-1.3) mg/dL AST 24 (17-59) U/L ALT 22 (0-50) U/L Alkaline Phosphatase 130 H (38-126) U/L Serum Total Protein 6.9 (6.3-8.2) g/dL Albumin 3.9 (3.5-5.0) g/dL Influenza Type A Ag NEGATIVE (NEGATIVE) Influenza Type B Ag NEGATIVE (NEGATIVE) RSV (PCR) NEGATIVE (Negative) SARS-CoV-2 (PCR) NEGATIVE (NEGATIVE) 06/11/22 06/12/22 06/12/22 Range/Units 15:08 05:05 05:05 WBC 9.7 (4.0-10.5) x10^3/uL RBC 4.45 (4.1-5.6) x10^6/uL Hgb 13.6 (12.5-18.0) g/dL Hct 40.8 L (42-50) % MCV 91.7 (78-100) fL MCH 30.6 (26-32) pg MCHC 33.3 (32-36) g/dL RDW 13.0 (11.5-14.0) % Plt Count 179 (150-450) x10^3/uL MPV 10.6 (7.5-11.0) fL Gran % 58.9 (36.0-66.0) % Immature Gran % (Auto) 0.2 (0.00-0.4) % Nucleat RBC Rel Count 0.0 (0.00-0.1) % Eos # (Auto) 0.22 (0-0.5) x10^3/uL Immature Gran # (Auto) 0.02 (0.00-0.03) x10^3u/L Absolute Lymphs (auto) 3.01 (1.0-4.6) x10^3/uL Absolute Monos (auto) 0.63 (0.0-1.3) x10^3/uL Absolute Nucleated RBC 0.00 (0.00-0.01) x10^3u/L Lymphocytes % 31.2 (24.0-44.0) % Monocytes % 6.5 (0.0-12.0) % Eosinophils % 2.3 (0.00-5.0) % Basophils % 0.9 (0.0-0.4) % Absolute Granulocytes 5.68 (1.4-6.9) x10^3/uL Basophils # 0.09 (0-0.4) x10^3/uL Sodium 139 (137-145) mmol/L Potassium 3.9 (3.5-5.1) mmol/L Chloride 108 H (98-107) mmol/L Carbon Dioxide 26 (22-30) mmol/L Anion Gap 9.2 (5-15) MEQ/L BUN 9 (9-20) mg/dL Creatinine 0.78 (0.66-1.25) mg/dL Estimated GFR > 60.0 ML/MIN Glucose 130 H (74-106) mg/dL POC Glucometer 127 H (74 to 106) mg/dL Calcium 8.6 (8.4-10.2) mg/dL Total Bilirubin 0.60 (0.2-1.3) mg/dL AST 23 (17-59) U/L ALT 21 (0-50) U/L Alkaline Phosphatase 116 (38-126) U/L Serum Total Protein 6.2 L (6.3-8.2) g/dL Albumin 3.3 L (3.5-5.0) g/dL Influenza Type A Ag (NEGATIVE) Influenza Type B Ag (NEGATIVE) RSV (PCR) (Negative) SARS-CoV-2 (PCR) (NEGATIVE) - Radiology Exams Ordered Rad Exams-Entire Visit: Radiology Procedures Category Date Time Status ABDOMEN W/WO CONTRAST [CT] Routine Exams 06/11/22 15:15 Completed - Discharge Discharge Date: 06/12/22 Disposition: Home, Self-Care Condition: Stable Prescriptions: Continue lisinopriL [Zestril] 30 mg PO DAILY Fluoxetine HCl 10 mg [Prozac 10 mg] 10 mg PO HS Clopidogrel Bisulfate [PLAVIX Tablet] 75 mg PO DAILY Atorvastatin Calcium [Lipitor] 40 mg PO HS Nitroglycerin 0.4 mg Tablet [Nitrostat 0.4 MG Tablet] 1 tab PO UD PRN PRN Reason: Chest Pain Isosorbide Mononitrate 30 mg [Imdur 30 MG] 60 mg PO DAILY Nabumetone 500 mg PO BID Tamsulosin HCl 0.4 mg [Flomax 0.4 MG] 0.4 mg PO DAILY Gabapentin 800 mg PO QHS Apixaban [Eliquis] 5 mg PO BID Sotalol HCl [Sotalol] 120 mg PO BID Buspirone HCl [Buspar] 10 mg PO DAILY Amlodipine Besylate 10 mg PO DAILY Esomeprazole Magnesium [Nexium 24Hr] 20 mg PO BID Melatonin 3 mg PO HS Metformin HCl Xr 500 mg [Glucophage XR 500 MG] 500 mg PO DAILY #0 Instructions: Dehydration, Adult (DC), Viral Gastroenteritis, Adult (DC) Additional Instructions: YOU HAD IV CONTRAST ON 06/11/22 AT 4:30PM - METFORMIN MUST BE HELD FOR 48 HOURS. MAY RESTART METFORMIN ON Saturday06/14/22. Follow up with: PIYUSH PLAZA MD [Primary Care Provider] - 06/20/22 9:30 am ([facility] ) Forms: Discharge Instructions Short Stay Summary QM - VTE Measures VTE Pharmacological Contraindication: Complications of Med Care VTE Mechanical Contraindication: Medical Contraindication - Stroke Measures Reason For No Antithrombin At Discharge: Treatment Not Indicated Reason For No Anticoagulant At Discharge: Treatment Not Indicated Reason For Not Prescribing Statins At Discharge: Refused by POA/Resp Democrat Contraindications For No Antithrombotic: Complications of Med Care Contraindication For Not Initiating TPA: Procedure Contraindicated
[2022-06-14] MEDS ORDERED: Glucophage XR 500 MG PO SCH (10:00)
== END 2022-06-12 12:20 | disposition home or self-care (01) ==
LOC: MED SURG 12:13
PROVIDERS: ADMIT General Practice; ATTEND General Practice
DX: A08.4 Viral intestinal infection, unspecified (principal); E86.0 Dehydration; R10.84 Generalized abdominal pain; E11.9 Type 2 diabetes mellitus without complications; I10 Essential (primary) hypertension; I25.10 Atherosclerotic heart disease of native coronary artery without angina pectoris; Z79.01 Long term (current) use of anticoagulants; Z79.899 Other long term (current) drug therapy; Z20.828 Contact with and (suspected) exposure to other viral communicable diseases; Z72.0 Tobacco use
CPT/HCPCS: 0241U; 36415; 74170; 80053; 82947; 85025; G0378; J1885; J2405; A9270-GY

== ENCOUNTER 2022-10-03 22:38 | Emergency (ER) | payer BC, OTHER ==
[2022-10-03] MEDS ORDERED: XYLOCAINE 1% HCL 20 ML MDV IJ ONE (22:45)
[2022-10-03] MEDS ORDERED: XYLOCAINE 1% HCL 20 ML MDV ONE (22:46)
--- NOTE | 2022-10-03 22:47 | ERPHSYRPT ---
- History of Present Illness Time Seen by Provider: 10/03/22 22:47 Source: patient, family Exam Limitations: no limitations Physician History: This is a 57-year-old white male patient of and presents to the emergency department with a forehead injury. Patient was using an air hammer when a piece of the metal of the air hammer hit him in the mid forehead region. There was initial bleeding that was significant but has since stopped prior to arrival to the emergency department. He is currently not bleeding. He is concerned that there may be a foreign body under the skin. Patient did not have any loss of consciousness. Patient is on Eliquis and Plavix because of the presence of his cardiac stents. He has a history of hypertension, coronary artery disease, and diabetes. He continues to smoke cigarettes daily. Timing/Duration: today Quality: painful Severity: mild Location: other (Left of midline forehead) Possible Causes: other (Possible foreign body in the subcutaneous space of the forehead) Associated Symptoms: denies symptoms Allergies/Adverse Reactions: No Known Drug Allergies Allergy (Verified 10/03/22 22:44) Home Medications: Fluoxetine HCl 10 mg [Prozac 10 mg] 10 mg PO HS 12/27/14 [History] lisinopriL [Zestril] 30 mg PO DAILY 12/27/14 [History] Clopidogrel Bisulfate [PLAVIX Tablet] 75 mg PO DAILY 10/20/18 [History] Atorvastatin Calcium [Lipitor] 40 mg PO HS 12/29/18 [History] Isosorbide Mononitrate 30 mg [Imdur 30 MG] 60 mg PO DAILY 12/29/18 [History] Nabumetone 500 mg PO BID 12/29/18 [History] Nitroglycerin 0.4 mg Tablet [Nitrostat 0.4 MG Tablet] 1 tab PO UD PRN 12/29/18 [History] Tamsulosin HCl 0.4 mg [Flomax 0.4 MG] 0.4 mg PO DAILY 04/14/19 [History] Apixaban [Eliquis] 5 mg PO BID 01/24/20 [History] Buspirone HCl [Buspar] 10 mg PO DAILY 01/24/20 [History] Gabapentin 800 mg PO QHS 01/24/20 [History] Sotalol HCl [Sotalol] 120 mg PO BID 01/24/20 [History] Amlodipine Besylate 10 mg PO DAILY 06/11/22 [History] Esomeprazole Magnesium [Nexium 24Hr] 20 mg PO BID 06/11/22 [History] Melatonin 3 mg PO HS 06/11/22 [History] Hx Tetanus, Diphtheria Vaccination/Date Given: Yes Hx Influenza Vaccination/Date Given: No Hx Pneumococcal Vaccination/Date Given: No Travel Risk - International Travel Have you traveled outside of the country in past 3 weeks: No - Coronavirus Screening Are you exhibiting any of the following symptoms?: No Close contact with a COVID-19 positive Pt in past 14-21 Days: No - Vaccine Status Have you recieved a Covid-19 vaccination: Yes 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 - Vaccination Dates Dates if Unknown: unknown - Review of Systems Constitutional: No Symptoms Eyes: No Symptoms Ears, Nose, & Throat: No Symptoms Respiratory: No Symptoms Cardiac: No Symptoms Abdominal/Gastrointestinal: No Symptoms Genitourinary Symptoms: No Symptoms Musculoskeletal: No Symptoms Skin: Other (Tender area under a 4 to 5 mm laceration site mid forehead) Neurological: No Symptoms Psychological: No Symptoms Endocrine: No Symptoms Hematologic/Lymphatic: No Symptoms Immunological/Allergic: No Symptoms All Other Systems: Reviewed and Negative - Past Medical History Pertinent Past Medical History: Yes Neurological History: No Pertinent History ENT History: No Pertinent History Cardiac History: Coronary Artery Disease, Hypertension, Myocardial Infarction ([place]) Respiratory History: No Pertinent History Endocrine Medical History: Diabetes Type II Musculoskeletal History: No Pertinent History GI Medical History: Gallbladder Disease History: No Pertinent History Psycho-Social History: Depression Male Reproductive Disorders: No Pertinent History Other Medical History: Restless leg syndrome. 3 stents - Past Surgical History Past Surgical History: Yes Neuro Surgical History: No Pertinent History Cardiac: Cardiac Stent, Cardiac Catheterization Respiratory: No Pertinent History Gastrointestinal: Cholecystectomy Genitourinary: No Pertinent History Musculoskeletal: No Pertinent History Male Surgical History: No Pertinent History Other Surgical History: lymph node removed 25 yrs ago - Social History Smoking Status: Current every day smoker How long have you smoked: 30 yrs Exposure to second hand smoke: Yes Drug Use: none Patient Lives Alone: No - Nursing Vital Signs Nursing Vital Signs: Initial Vital Signs Temperature 97.6 F 10/03/22 22:46 Pulse Rate 89 10/03/22 22:46 Respiratory Rate 18 10/03/22 22:46 Blood Pressure 162/105 10/03/22 22:46 O2 Sat by Pulse Oximetry 97 10/03/22 22:46 Pain Scale Pain Intensity 8 - Physical Exam General Appearance: no apparent distress, alert, anxiety Eye Exam: PERRL/EOMI, eyes nml inspection Ears, Nose, Throat Exam: normal ENT inspection, moist mucous membranes Neck Exam: normal inspection, non-tender, supple, full range of motion Respiratory Exam: airway intact, No chest tenderness, No respiratory distress Gastrointestinal/Abdomen Exam: No tenderness Rectal Exam: not done Back Exam: normal inspection, normal range of motion, No CVA tenderness, No vertebral tenderness Extremity Exam: normal inspection, normal range of motion, pelvis stable Neurologic Exam: alert, oriented x 3, cooperative, 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 No active bleeding. No visible foreign body present. The area is tender to palpation) Lymphatic Exam: No adenopathy SpO2 Interpretation: normal SpO2: 97 O2 Delivery: Room Air Procedures - Additional Procedures Progress: Timeout performed at 12:10 AM on 10/04/2022. The area was prepped with Hibiclens solution. The area was then injected with 3 mL of 1% lidocaine with epinephrine. Initially, we explored the site with tooth forceps and hemostat. I was unable to grasp the site and therefore I used a #15 blade to extend and create the laceration to be longer (approximate 1 cm) in order to locate the foreign body. This maneuver worked well. We were able to remove this foreign body. We then irrigated out and cleaned with Hibiclens/sterile water solution and blotted dry. I used 2 simple interrupted sutures of 4-0 nylon to approximate the skin edges. The area was then again cleaned and dried and a bandage was placed overlying the site. The post foreign body removal film is pending. - Course Nursing assessment & vital signs reviewed: Yes Ordered Tests: Active Orders 24 hr Category Date Time Status SKULL LIMITED (LESS THAN 4 V) Stat Exams 10/03/22 22:56 Taken SKULL LIMITED (LESS THAN 4 V) Stat Exams 10/04/22 00:23 Ordered Medication Summary Discontinued Medications Generic Name Dose Route Start Last Admin Trade Name Angie PRN Reason Stop Dose Admin Hydrocodone Bitart/Acetaminophen 1 tab 10/04/22 00:23 Hydrocodone/Apap 5/325 1 Tab Tablet PO 10/04/22 00:24 STAT ONE Hydrocodone Bitart/Acetaminophen 2 tab 10/04/22 00:24 Hydrocodone/Apap 5/325 1 Tab Tablet PO 10/04/22 00:25 SENT HOME W/ PATIENT ONE Lidocaine HCl 5 ml 10/03/22 22:45 10/03/22 22:47 Lidocaine Hcl 1% 20 Ml Mdv 20 Ml Ml IJ 10/03/22 22:46 5 ml STAT ONE Administration Lidocaine HCl Confirm 10/03/22 22:46 Lidocaine Hcl 1% 20 Ml Mdv 20 Ml Ml Administered 10/03/22 22:47 Dose 5 ml .ROUTE .STK-MED ONE Lidocaine/Epinephrine Confirm 10/03/22 23:55 Lidocaine Hcl/Epinephrine 1% 20 Ml Administered 10/03/22 23:56 Dose 3 ml .ROUTE .STK-MED ONE Lidocaine/Epinephrine 3 ml 10/03/22 23:59 10/04/22 00:03 Lidocaine Hcl/Epinephrine 1% 20 Ml IJ 10/04/22 00:00 3 ml STAT ONE Administration - Progress Progress: re-examined Progress Note: 10/03/22 23:08 Patient's medical issue is 1 of low complexity, the level of complexity and the work-up performed is based on review of the patient's past medical history, review of the patient's medication list, review of the patient's drug allergy list, history present illness, physical findings on examination. The work-up in this patient includes a skull series to evaluate whether or not there is a foreign body present. If there is no foreign body present, after the area is cleaned with Hibiclens we will try the site and clean the area with benzoin solution, approximate the skin edges with Dermabond/skin glue and approximate the small laceration site with Steri-Strips. If there is a radiopaque foreign body present we will inject the area with lidocaine and explore the area and remove the foreign body. We will then close the site in the manner described above 10/04/22 00:31 We opted to close the laceration site after removing the foreign body with 4-0 nylon sutures. See procedure note. The reason for this was the laceration site need to be extended further vertically in order to reach the deep foreign body. Repeat single skull view pending. I will interpret this on my own. Counseled pt/family regarding: diagnosis, rad results Medical Desision Making - Independent Historian Additional History obtained from: Spouse - Diagnostic Testing Radiological Interpretation: Interpreted by me - Risk of complications Low Risk: Low risk of morbidity from additional dx testing or treatment - Departure Departure Disposition: Home Clinical Impression: Metal foreign body in forehead Condition: Stable Critical Care Time: No Referrals: PIYUSH PLAZA MD [Primary Care Provider] - Follow up/PCP as directed Additional Instructions: Hold your Plavix use until the morning of 10/05/2022. Hold your Eliquis use until the evening of 10/05/2022. Keep the laceration repair site dry until the morning of 10/05/2022. At that time you may wash the site daily with soap and water. You can dry the site by blotting dry or use a chair maker and then a thin layer of antibiotic ointment covered with a nonstick bandage. Suture removal in 5 to 7 days.
[2022-10-03] MEDS ORDERED: XYLOCAINE 1%/Epi 1:100000 MDV 20 ML ONE (23:55)
[2022-10-03] MEDS ORDERED: XYLOCAINE 1%/Epi 1:100000 MDV 20 ML IJ ONE (23:59)
[2022-10-04] MEDS ORDERED: NORCO 5/325 MG PO ONE ×2 (00:23→00:24)
[2022-10-04] MEDS ORDERED: NORCO 5/325 MG ONE (00:42)
[2022-10-04 01:01] VITALS: BP 149/100; PULSE 77; O2SAT 96
--- NOTE | 2022-10-04 08:39 | XRAY ---
Indication: Right frontal head injury. Foreign body. Comparison: None 3 view skull demonstrates 5 mm foreign body in soft tissues right forehead. Patient edentulous. No other bony, articular, or soft tissue abnormalities.
--- NOTE | 2022-10-04 08:41 | XRAY ---
Indication: Foreign body removal. Comparison: Taken earlier today. Single frontal skull demonstrates successful removal of right frontal foreign body. No other bony, articular, or soft tissue abnormalities.
== END 2022-10-04 01:05 | disposition home or self-care (01) ==
LOC: ED 22:38
DX: S01.82XA Laceration with foreign body of other part of head, initial encounter (principal); W20.8XXA Other cause of strike by thrown, projected or falling object, initial encounter; I10 Essential (primary) hypertension; E11.9 Type 2 diabetes mellitus without complications; Z79.01 Long term (current) use of anticoagulants; Z79.02 Long term (current) use of antithrombotics/antiplatelets; Z79.899 Other long term (current) drug therapy; Z72.0 Tobacco use
CPT/HCPCS: 10120; 70250; 96372; 99283; A9270-GY

== ENCOUNTER 2024-07-01 14:02 | Emergency (ER) | payer OTHER ==
[2024-07-01 14:18] VITALS: PULSE 89; TEMP 98.7
[2024-07-01] MEDS ORDERED: MORPHINE SULFATE 4 MG INJ ONE (14:53)
[2024-07-01] MEDS: MORPHINE SULFATE 4 MG INJ IM ONE (14:55)
--- NOTE | 2024-07-01 15:16 | XRAY ---
Indication: Pain following fall. Comparison: None 3 view left knee demonstrates minimal medial joint space narrowing, mild scattered vascular calcifications, and tiny posterior fabella. No acute bony, articular, or soft tissue abnormalities.
[2024-07-01 15:36] VITALS: O2SAT 97
--- NOTE | 2024-07-01 16:02 | ERPHSYRPT ---
- History of Present Illness Time Seen by Provider: 07/01/24 14:08 Source: patient Exam Limitations: no limitations Patient Subjective Stated Complaint: Pt fell while at work and landed on concrete and his left knee and injured it and low medial back that radiates to the lateral side Triage Nursing Assessment: Pt brought self to the ER, hypertensive, rates pain as 9/10, pulses normal, skin n/w/d, pain with palpatation to left knee and mid lower back that radiates to the left lateral side, abrasion and swelling to the left knee, no difficulty breathing, denies chest pain Physician History: 58 years old male with history of coronary artery disease with stenting, atrial fibrillation status post ablation on Eliquis presented in the ER with complaint of left knee pain. Patient reports tripped on a pallet and hit his knee against the concrete with no hitting his head or loss of consciousness. This happened yesterday and gradually increasing pain and difficulty ambulation. Pain is more on the anterolateral aspect of lower knee/upper tibia. Has some abrasion but no obvious swelling. Up-to-date with tetanus Allergies/Adverse Reactions: No Known Drug Allergies Allergy (Verified 07/01/24 14:18) Home Medications: Fluoxetine HCl 10 mg [Prozac 10 mg] 10 mg PO HS 12/27/14 [History] lisinopriL [Zestril] 30 mg PO DAILY 12/27/14 [History] Clopidogrel Bisulfate [PLAVIX Tablet] 75 mg PO DAILY 10/20/18 [History] Atorvastatin Calcium [Lipitor] 40 mg PO HS 12/29/18 [History] Isosorbide Mononitrate 30 mg [Imdur 30 MG] 60 mg PO DAILY 12/29/18 [H istory] Nitroglycerin 0.4 mg Tablet [Nitrostat 0.4 MG Tablet] 1 tab PO UD PRN 12/29/18 [History] Tamsulosin HCl 0.4 mg [Flomax 0.4 MG] 0.4 mg PO DAILY 04/14/19 [History] Apixaban [Eliquis] 5 mg PO BID 01/24/20 [History] Buspirone HCl [Buspar] 10 mg PO DAILY 01/24/20 [History] Gabapentin 800 mg PO TID 01/24/20 [History] Sotalol HCl [Sotalol] 120 mg PO BID 01/24/20 [History] Amlodipine Besylate 10 mg PO DAILY 06/11/22 [History] Esomeprazole Magnesium [Nexium 24Hr] 20 mg PO BID 06/11/22 [History] Cyclobenzaprine HCl 10 mg [Cyclobenzaprine 10 MG] 10 mg PO TID 07/01/24 [History] Insulin Glargine,Hum.rec.anlog [Janet Verasostramone] 50 units SQ HS 07/01/24 [History] Hx Tetanus, Diphtheria Vaccination/Date Given: Yes Hx Influenza Vaccination/Date Given: No Hx Pneumococcal Vaccination/Date Given: No Travel Risk - International Travel Have you traveled outside of the country in past 3 weeks: No - Emerging Infectious Disease Are you exhibiting symptoms associated with any current EIDs: No - Review of Systems Constitutional: No Symptoms Ears, Nose, & Throat: No Symptoms Respiratory: No Symptoms Cardiac: No Symptoms Abdominal/Gastrointestinal: No Symptoms Musculoskeletal: Fall, Injury, Joint Pain Skin: No Symptoms Neurological: No Symptoms Endocrine: No Symptoms Immunological/Allergic: No Symptoms - Past Medical History Pertinent Past Medical History: Yes Neurological History: No Pertinent History ENT History: No Pertinent History Cardiac History: Coronary Artery Disease, Hypertension, Myocardial Infarction ([place]) Respiratory History: No Pertinent History Endocrine Medical History: Diabetes Type II Musculoskeletal History: No Pertinent History GI Medical History: Gallbladder Disease History: No Pertinent History Psycho-Social History: Depression Male Reproductive Disorders: No Pertinent History Other Medical History: Restless leg syndrome. 3 stents - Past Surgical History Past Surgical History: Yes Neuro Surgical History: No Pertinent History Cardiac: Cardiac Stent, Cardiac Catheterization Respiratory: No Pertinent History Gastrointestinal: Cholecystectomy Genitourinary: No Pertinent History Musculoskeletal: No Pertinent History Male Surgical History: No Pertinent History Other Surgical History: lymph node removed 25 yrs ago - Social History Smoking Status: Current every day smoker How long have you smoked: 30 yrs Exposure to second hand smoke: Yes Drug Use: none - Social Determinants of Health Will the patient participate in the screening: Yes Do you worry about a steady place to live?: No Do you have any problems with any of the following?: No known problems In the past 12 months,have you had to go without utilities?: No Transportation Issues: No Has anyone in your support network made you feel unsafe?: No Have you or anyone in your house had to go w/o enough food: No - Nursing Vital Signs Nursing Vital Signs: Initial Vital Signs Temperature 98.7 F 07/01/24 14:06 Pulse Rate 89 07/01/24 14:06 Blood Pressure 143/96 07/01/24 14:06 O2 Sat by Pulse Oximetry 96 07/01/24 14:06 Pain Scale Pain Intensity 9 - Physical Exam General Appearance: no apparent distress, alert Neck Exam: normal inspection, full range of motion Cardiovascular/Respiratory Exam: normal breath sounds, regular rate/rhythm Gastrointestinal/Abdominal Exam: non-tender, soft Hips Exam: bilateral: non-tender, normal inspection, normal range of motion, no evidence of injury Legs Exam: bilateral leg: non-tender, normal inspection, normal range of motion, no evidence of injury Knees Exam: right knee: non-tender, normal inspection, normal range of motion, no evidence of injury, left knee: bone tenderness, pain, soft tissue tenderness, swelling Ankle Exam: bilateral ankle: non-tender, normal inspection, normal range of motion, no evidence of injury Neuro/Tendon Exam: normal sensation, normal motor functions Mental Status Exam: alert, oriented x 3, cooperative Skin Exam: normal color SpO2 Interpretation: normal SpO2: 97 O2 Delivery: Room Air Ordered Tests: Active Orders 24 hr Category Date Time Status KNEE (3 VIEWS) Stat Exams 07/01/24 14:48 Completed Medication Summary Discontinued Medications Generic Name Dose Route Start Last Admin Trade Name Anjumq PRN Reason Stop Dose Admin Morphine Sulfate 4 mg 07/01/24 14:48 07/01/24 14:55 Morphine Sulfate 4 Mg/Ml Injection IM 07/01/24 14:49 4 mg STAT ONE Administration Morphine Sulfate Confirm 07/01/24 14:53 Morphine Sulfate 4 Mg/Ml Injection Administered 07/01/24 14:54 Dose 4 mg .ROUTE .STK-MED ONE - Progress Progress: improved, pain not gone completely, re-examined Progress Note: 07/01/24 16:00 58 years old is evaluated in the ER for left knee pain after he fell yesterday while at work. Has tenderness in the lateral lateral aspect of the knee/upper tibia with no obvious swelling or ballottement. Given morphine for symptomatic relief, feeling better on reevaluation with increased mobility. X-rays are negative for acute fracture dislocation but old arthritic changes reviewed by me followed by official read. I believe patient has contusions versus sprain, placed in Nito wrap, recommended taking pain medications and outpatient orthopedics appointment. Discussed signs symptoms of worsening needing return to ER which he seems understanding. Stable for discharge. 07/01/24 16:02 Counseled pt/family regarding: diagnosis, need for follow-up, rad results Medical Desision Making - Diagnostic Testing Diagnostic test were ordered, analyzed, and reviewed by me: Yes Radiological Interpretation: Interpreted by me, Reviewed by me - Risk of complications The pt has a mod risk of morbidity or mortality based on: Need for prescription drug management - Departure Departure Disposition: Home Clinical Impression: Contusion of knee, left Condition: Stable Critical Care Time: No Referrals: PIYUSH PLAZA MD [Primary Care Provider] - Follow up with PCP 1 day CLAY VALENTE DO [ACTIVE STAFF] - Follow up/PCP as directed (Call for appointment) Instructions: Knee Sprain ([place]) Additional Instructions: Intermittent ice application, weightbearing as tolerated. Follow-up with orthopedics for reevaluation. Take pain medications as needed. Return to ER for increasing pain swelling, difficulty ambulation etc. Prescriptions: Hydrocodone/Acetaminophen [Hydrocodone-Acetamin 7.5-325] 1 each PO Q6HPRN PRN 3 Days #12 tablet MDD 4 PRN Reason: Pain
[2024-07-01 16:11] VITALS: BP 112/81
== END 2024-07-01 16:18 | disposition home or self-care (01) ==
LOC: ED 14:02
DX: S80.02XA Contusion of left knee, initial encounter (principal); W01.198A Fall on same level from slipping, tripping and stumbling with subsequent striking against other object, initial encounter; Y99.0 Civilian activity done for income or pay; I10 Essential (primary) hypertension; E11.9 Type 2 diabetes mellitus without complications; Z79.01 Long term (current) use of anticoagulants; Z79.02 Long term (current) use of antithrombotics/antiplatelets; Z79.4 Long term (current) use of insulin; Z79.891 Long term (current) use of opiate analgesic; Z79.899 Other long term (current) drug therapy; Z72.0 Tobacco use
CPT/HCPCS: 73562; 96372; 99283; J2270